=== PATIENT | male | born 1955 | race Caucasian/White ===

== ENCOUNTER → 2017-09-13 | Outpatient (CLI) | payer OTHER ==
[~2017-09-13] MED LIST: ACHD5005 PO; AMLO10TA2 PO; ASP81CT; ASPI-586 PO; ATOR10TA PO; CETI10TA20 PO; CHOL200025 PO; MAGN400C PO; METO-351 PO; OMEP20TA7 PO; OMG1KC; ROSU10TA PO
--- NOTE | 2017-09-13 17:05 | Diagnostic Imaging Report ---
INDICATION: Kidney stone and hematuria with pain in the right flank. TIME OF EXAM: 04:14 p.m. FINDINGS: Bowel gas pattern is somewhat prominent, but no significant distention is seen of the bowel loops. No wall thickening or pneumatosis is identified. No definite free air is identified. No definite radiopaque urinary tract calculi are detected. No calculi along the expected course of the ureters are seen. IMPRESSION: Mildly prominent bowel gas pattern, perhaps owing to ileus. No definite radiopaque urinary tract calculi are identified. Dictated by: Dictated on workstation # [id number]
== END ==
LOC: RAD 15:32
PROVIDERS: ATTEND Nurse Practitioner Family
DX: N20.0 Calculus of kidney (principal)
CPT/HCPCS: 74018

== ENCOUNTER → 2017-09-19 | Outpatient (CLI) | payer OTHER ==
[~2017-09-19] MED LIST changes: +IOHEXOL 350 MG/ML 100 ML (OMNIPAQUE 350) VIAL IV ONE; +NS 250 ML (IVPB) BAG IV ONE
--- NOTE | 2017-09-19 09:18 | Diagnostic Imaging Report ---
PROCEDURE: CT abdomen and pelvis with contrast. TECHNIQUE: Multiple contiguous axial images were obtained through the abdomen and pelvis after administration of intravenous contrast. INDICATION: Right flank pain radiating into the groin. There is no appendicitis or diverticulitis. No abdominal wall defect or hernia. No inflammatory process. No ascites, abscess, hematoma or fluid collection. There is no hydronephrosis and no perienteric or perinephric edema. Some very slight hazy increased density of the fat along the mesenteric root is unchanged when correlated with its visualized portions of the chest CT January 2017. This jacky mesentery is not associated with adenopathy or acute feature is likely incidental. There are gallstones present without features of acute cholecystitis. Liver, spleen, adrenals and pancreas were normal. There is no bile duct dilatation. A small hiatal hernia chronic and there is chronic calcified basilar pleural plaques and an unchanged left basilar pleural parenchymal density in the posterior sulcal left lower lobe stable dating back to 2009 confirming its benignity. IMPRESSION: No appendicitis, diverticulitis or urinary tract obstruction. No inflammatory process or acute finding. Chronic basilar pleural plaques and chronic pleural-parenchymal density in the left lower lobe. Cholelithiasis without features of acute cholecystitis. Chronic incidental jacky mesentery with no adenopathy or acute finding. Dictated by: Dictated on workstation # [id number]
== END ==
LOC: RAD 08:33
PROVIDERS: ATTEND Nurse Practitioner Family
DX: J92.9 Pleural plaque without asbestos (principal); J98.4 Other disorders of lung; K80.20 Calculus of gallbladder without cholecystitis without obstruction
CPT/HCPCS: 74177

== ENCOUNTER 2017-09-26 05:39 | Outpatient (CLI) | payer OTHER ==
[~2017-09-26] VITALS: Ht 180.3 cm; Wt 99.8 kg
[~2017-09-26 05:39] MED LIST changes: -ACHD5005 PO; -AMLO10TA2 PO; -ASPI-586 PO; -ATOR10TA PO; -CETI10TA20 PO; -CHOL200025 PO; -IOHEXOL 350 MG/ML 100 ML (OMNIPAQUE 350) VIAL IV ONE; -MAGN400C PO; -METO-351 PO; -NS 250 ML (IVPB) BAG IV ONE; -OMEP20TA7 PO; -ROSU10TA PO
[2017-09-26] MEDS ORDERED: ATOR10TA PO (12:12)
[2017-09-26] MEDS ORDERED: CHOL200025 PO (12:12)
[2017-09-26] MEDS ORDERED: MAGN400C PO (12:12)
[2017-09-26] MEDS ORDERED: ASPI-586 PO (12:12)
[2017-09-26] MEDS ORDERED: OMEP20TA7 PO (12:12)
[2017-09-26] MEDS ORDERED: CETI10TA20 PO (12:12)
[2017-09-26] MEDS ORDERED: METO-351 PO (12:12)
[2017-09-26] MEDS ORDERED: AMLO10TA2 PO (12:12)
== END 2017-09-26 12:30 ==
LOC: PREOP 05:39
PROVIDERS: ATTEND Surgery
DX: Z01.818 Encounter for other preprocedural examination (principal)

== ENCOUNTER 2017-09-28 06:00 | Day surgery (SDC) | payer OTHER ==
[~2017-09-28] VITALS: Ht 180.3 cm; Wt 99.8 kg
[~2017-09-28 06:00] MED LIST changes: +AMLO10TA2 PO; +ASPI-586 PO; +ATOR10TA PO; +CETI10TA20 PO; +CHOL200025 PO; +MAGN400C PO; +METO-351 PO; +OMEP20TA7 PO
--- OUTSIDE RECORDS SUMMARY | 2017-09-28 06:05 | XMS REPORT | Continuity of Care Document ---
Author Author [facility] Address Unknown Phone Unavailable Allergies Active Description Code Type Severity Reaction Onset Reported/Identified Relationship to Patient Clinical Status Yes NKANo Known Allergies NKA Miscellaneous Allergy Mild N/A 10/01/2008 Medications There is no data. Problems Date Dx Coded Attending Type Code Diagnosis Diagnosed By 11/30/2013 BRITTANY RAMEY, VALERIA V70.0 ROUTINE GENERAL MEDICAL EXAMINATION AT A HEALTH CARE FACILITY 06/03/2014 Ot 793.11 06/03/2014 JENELLE VACA MD Ot 793.11 10/21/2014 Ot 793.11 10/21/2014 JENELLE VACA MD Ot 793.11 05/12/2015 Ot 793.11 05/12/2015 JENELLE VACA MD Ot 793.11 05/12/2015 ANABELLA SHARP MD Ot 793.19 05/12/2015 ANABELLA SHARP MD Ot V15.84 05/30/2015 Ot 786.50 05/30/2015 Ot 518.0 05/30/2015 Ot 518.89 06/03/2015 ARGENIS PANG Ot M54.2 06/03/2015 ARGENIS PANG Ot M54.2 06/09/2015 ARGENIS PANG Ot M54.2 01/19/2016 Ot 793.11 SOLITARY PULMONARY NODULE 01/19/2016 JENELLE VACA MD Ot 793.11 SOLITARY PULMONARY NODULE 01/19/2016 ANABELLA SHARP MD Ot 793.19 OTHER NONSPECIFIC ABNORMAL FINDING OF TRISTIN 01/19/2016 ANABELLA SHARP MD Ot V15.84 PERSONAL HX OF CONTACT W (SUSPECTED) E 01/19/2016 ARGENIS PANG Ot M54.2 CERVICALGIA 02/11/2017 Ot 793.11 SOLITARY PULMONARY NODULE 02/11/2017 JENELLE VACA MD Ot 793.11 SOLITARY PULMONARY NODULE 02/11/2017 ANABELLA SHARP MD Ot 793.19 OTHER NONSPECIFIC ABNORMAL FINDING OF TRISTIN 02/11/2017 ANABELLA SHARP MD Ot V15.84 PERSONAL HX OF CONTACT W (SUSPECTED) E 02/11/2017 ARGENIS PANG Ot M54.2 CERVICALGIA 02/15/2017 Ot 793.11 SOLITARY PULMONARY NODULE 02/15/2017 JENELLE VACA MD Ot 793.11 SOLITARY PULMONARY NODULE 02/15/2017 ANABELLA SHARP MD Ot 793.19 OTHER NONSPECIFIC ABNORMAL FINDING OF TRISTIN 02/15/2017 ANABELLA SHARP MD Ot V15.84 PERSONAL HX OF CONTACT W (SUSPECTED) E 02/15/2017 ARGENIS PANG Ot M54.2 CERVICALGIA 03/28/2017 Ot 793.11 SOLITARY PULMONARY NODULE 03/28/2017 JENELLE VACA MD Ot 793.11 SOLITARY PULMONARY NODULE 03/28/2017 ANABELLA SHARP MD Ot 793.19 OTHER NONSPECIFIC ABNORMAL FINDING OF TRISTIN 03/28/2017 ANABELLA SHARP MD Ot V15.84 PERSONAL HX OF CONTACT W (SUSPECTED) E 03/28/2017 ARGENIS PANG Ot M54.2 CERVICALGIA 03/28/2017 HERBER LAUREN APRN Ot J98.11 ATELECTASIS 03/28/2017 HERBER LAUREN APRN Ot K63.89 OTHER SPECIFIED DISEASES OF INTESTINE 03/28/2017 HERBER LAUREN APRN Ot K80.20 CALCULUS OF GALLBLADDER W/O CHOLECYSTITI 03/30/2017 Ot 793.11 SOLITARY PULMONARY NODULE 03/30/2017 JENELLE VACA MD Ot 793.11 SOLITARY PULMONARY NODULE 03/30/2017 ANABELLA SHARP MD Ot 793.19 OTHER NONSPECIFIC ABNORMAL FINDING OF TRISTIN 03/30/2017 ANABELLA SHARP MD Ot V15.84 PERSONAL HX OF CONTACT W (SUSPECTED) E 03/30/2017 ARGENIS PANG Ot M54.2 CERVICALGIA 03/30/2017 HERBER LAUREN APRN Ot J98.11 ATELECTASIS 03/30/2017 HERBER LAUREN APRN Ot K63.89 OTHER SPECIFIED DISEASES OF INTESTINE 03/30/2017 HERBER LAUREN APRN Ot K80.20 CALCULUS OF GALLBLADDER W/O CHOLECYSTITI 04/04/2017 HERBER LAUREN APRN Ot J98.11 ATELECTASIS 04/04/2017 HERBER LAUREN APRN Ot K63.89 OTHER SPECIFIED DISEASES OF INTESTINE 04/04/2017 HERBER LAUREN APRN Ot K80.20 CALCULUS OF GALLBLADDER W/O CHOLECYSTITI 09/14/2017 HERBER LAUREN APRN Ot N20.0 CALCULUS OF KIDNEY Procedures Code Description [place] [address] PURE TONE HEARING TEST AIR 11/30/2013 45688 UA LONG DIP 11/30/2013 Results Test Result Range Comprehensive metabolic panel - 02/15/17 10:15 Serum or plasma sodium measurement (moles/volume) 140 mmol/L 135-145 Serum or plasma potassium measurement (moles/volume) 4.1 mmol/L 3.6-5.0 Serum or plasma chloride measurement (moles/volume) 107 mmol/L 98-107 Carbon dioxide 25 mmol/L 21-32 Serum or plasma anion gap determination (moles/volume) 8 mmol/L 5-14 Serum or plasma urea nitrogen measurement (mass/volume) 13 mg/dL 7-18 Serum or plasma creatinine measurement (mass/volume) 1.01 mg/dL 0.60-1.30 Serum or plasma urea nitrogen/creatinine mass ratio 13 NRG Serum or plasma creatinine measurement with calculation of estimated glomerular filtration rate > NRG Serum or plasma glucose measurement (mass/volume) 100 mg/dL 70-105 Serum or plasma calcium measurement (mass/volume) 9.0 mg/dL 8.5-10.1 Serum or plasma total bilirubin measurement (mass/volume) 0.8 mg/dL 0.1-1.0 Serum or plasma alkaline phosphatase measurement (enzymatic activity/volume) 48 U/L 40-136 Serum or plasma aspartate aminotransferase measurement (enzymatic activity/ volume) 16 U/L 5-34 Serum or plasma alanine aminotransferase measurement (enzymatic activity/volume ) 16 U/L 0-55 Serum or plasma protein measurement (mass/volume) 6.7 g/dL 6.4-8.2 Serum or plasma albumin measurement (mass/volume) 3.9 g/dL 3.2-4.5 Encounters ACCT No. Visit Date/Time Discharge Status Pt. Type Provider Facility Loc./Unit Complaint [id number] 11/30/2013 09:46:00 11/30/2013 23:59:59 CLS Outpatient BRITTANY RAMEY, VALERIA [id number] 09/19/2017 08:33:00 09/19/2017 23:59:59 CLS Outpatient HERBER LAUREN PATTERN LEASE INSPECTOR [facility] RAD RLQ PAIN,RT FLANK PAIN,RT GROIN PAIN [id number] 09/13/2017 15:32:00 09/13/2017 23:59:59 CLS Outpatient HERBER LAUREN PATTERN LEASE INSPECTOR [facility] RAD KIDNEY STONE [id number] 02/15/2017 09:57:00 02/15/2017 23:59:59 CLS Outpatient HERBER LAUREN PATTERN LEASE INSPECTOR [facility] RAD PULMONARY NODULE [id number] 05/30/2015 08:33:00 05/30/2015 23:59:59 CLS Outpatient ARGENIS PANG SHARE DAIRY FARMER [facility] RAD NECK PAIN [id number] 10/21/2014 12:03:00 10/21/2014 23:59:59 CLS Outpatient ANABELLA SHARP MD [facility] RAD HX OF ASBESTOS EXPOSURE, LUNG CONSOLIDATION [id number] 09/12/2013 07:26:00 09/12/2013 23:59:59 CLS Outpatient JENELLE VACA MD [facility] RAD F/U NODULE [id number] 05/30/2015 08:30:00 Document Registration [id number] 05/30/2015 08:30:00 Document Registration [id number] 07/12/2012 08:27:00 Document Registration [id number] 04/01/2010 08:42:00 Document Registration [id number] 01/14/2010 06:55:00 Document Registration [id number] 02/17/2017 10:38:29 02/17/2017 23:59:59 CLS Outpatient
--- OUTSIDE RECORDS SUMMARY | 2017-09-28 06:05 | XMS REPORT | Clinical Summary ---
Author Author [facility] Organization [facility] Address Unknown Phone Unavailable Care Team Providers Care Consulting Technical Director Name Role Phone Jose Bocanegra MD [address], Academic Coach Unavailable Unavailable Katya Myrick MD PCP Source Comments Some departments are not documenting in the electronic medical record. If you do not see the information that you expected, contact Release of Information in the Health Information Management department at [phone] for further assistance in locating additional records.[facility] Allergies No Known Allergies Current Medications Prescription Sig. Disp. Refills Start End Date Status Date magnesium oxide (MAG-OX) Take 400 mg by mouth Active 400 mg tablet Twice Daily. ERGOCALCIFEROL (VITAMIN D Take 2,000 Units by mouth Active PO) Daily. aspirin EC 81 mg tablet Take 1 Tab by mouth 90 Tab 3 11/24/19 Active daily. 13 rosuvastatin (CRESTOR) 20 Take 1 tablet by mouth 90 tablet 3 02/29/20 Active mg tabletIndications: daily. 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 Alcala - "coronary microcirculation dysfunction; intramyocardial mild systolic compression" L ast Assessment & Plan: Reports breakthrough episodes in the past couple of months even on Norvasc. We will schedule him to followup with Dr. Alcala for further evaluation and treatment. Cardiovascular Studies 09/29/2009 Overview: A.12/09/08 TM: Sub-maximal Williams protocol stress test with no evidence of of exercise-induced arrhythmia. Patient was on Sotalol 120 mg bid. B. 08/27/08 ED: Normal left ventricular size. Systolic function is in the lower limits of normal. Estimated LV EF is 50%. Mild mitral regurgitation. Mild Tricuspid regurgitation. Pulmonary hypertension with estimated PAP of 50 mmHg. C. 09/04/08 Ex Myoview Stress Test: Excellent exercise tolerance, achieving 93% of maximum expected heart rate. Mild reversible ischemia involving the mid to apical anterior wall. Normal left ventricular size with good systolic function, no segmental wall motion abnormality. Calculated EF of 58%. D. 09/11/08 Cardiac Cath: Normal coronary arteries. Left anterior descending artery initially is small in caliber, most likely related to intracardiovascular dehydration. With intracoronary nitroglycerin the caliber of the vessel increases. In the [id number] left anterior descending artery there is 20% lesion. LV EF is 50%. E. 12/03/08 ED: Left atrial enlargement of 5.1 cm. Right atrial enlargement. Normal ventricular systolic function. Borderline enlarged right ventricle, however, it was difficult to assess by conventional echo. PAP of 39 mmHg. LV EF of 65%. F. 12/09/08 TM: Sub-maximal williams protocol stress test with no evidence of exercise-induced arrhythmia. This test was preformed while the patient was no Sotalol 120 mg twice daily. Patient achieved 73% of his predicted heart rate. G. 01/14/10 Thallium: Excellent ex tolerance. Achieved 96% of maximum expected heart rate. Reverse distribution with the stress images better than resting involving the anterior wall, anteroapical segments and true apex. Normal LV size with good systolic function. No segmental wall motion abnormalities. LV EF 53%. GERD (gastroesophageal reflux disease) 09/29/2009 Overview: - 01/03/09 Started on Prontix by Dr. Liu. - 03/13/[address] Dickson, continue Omeprazole 10 mg daily. - 04/2009 s/p EGD. Lung nodule 09/29/2009 Overview: A. 08/30/08 Chest X-ray: Minimal subsegmental atelectasis or scarring in the left lung base. No pneumonia or heart failure noted. B. 11/27/08 PFT: Spirometry was within normal limits. Lung volumes are within normal limits. Diffusion capacity is within normal limits. FEV1 changed by 10 %. FEF 25-75 changed by 26%. Mild response to bronchodilator. C.02/12/09 CT of Chest: Stable round density in the left lung base. D. 06/03/09 CT of Chest: Stable round density in the left lung base when compared to the prior examination from 02/12/09. That exam was also stable back to 09/21/08. Sleep stage dysfunction 09/29/2009 Overview: A. 08/07/09 - Sleep study ([facility]) - snoring and sleep stage disturbance: recommend lifestyle modifications (dietary, weight loss, avoidance of sedatives (alcohol) and sleep hygiene measures are recommended). Atrial fibrillation s/p ablation in September 2009 08/25/2009 Overview: diagnosed with A-fib 11/2008 A. 11/29/08 Holter Monitor: SR with multiple episodes of PAF, rate up to 240 bpm. Multiple episodes of wide complex tachycardia. Minimum heart rate of 58 bpm, maximum heart rate of 142 bpm, average of 83 bpm. B. 12/03/08 Sotalol initiated. C. 01/03/[address] Liu, pt well controlled on Sotalol 120 bid. D. Holter Monitor: SR with frequent PVC's, bigeminy, occasional PVC's. Maximum 118 bpm, minimum 54 bpm. E. 06/18/09 Holter Monitor: SR with occasional PAC and PVC's. Minimum heart rate of 51 bpm, maximum heart rate of 109 bpm, average heart rate of 67 bpm. F. 07/17/09 - met in consultation with Dr. Bocanegra - started on Coumadin, plan for Tikosyn and ablation. G. 08/25/09 - Tikosyn initiation H. 08/25/09 - Cardiac CTA: Upper limits of normal left atrial size with normal pulmonary vein anatomy. No left atrial appendage thrombus is identified. Normal bilateral superior and inferior pulmonary veins as described. Limited CT chest: Mild bilateral pleural plaquing with small areas of calcification. 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 There is associated round atelectasis in the left lung base. I. 10/13/09 - ASIF RFA: Recurrent paroxysmal atrial fibrillation status post pulmonary vein antral isolation.2. Normal sinus node function. 3. Normal atrial conduction at completion of procedure. 4. Normal AV node function. 5. No evidence of accessory pathway. 6. Normal ventricular function. 7. Normal His-Purkinje system function. J. 12/04/09 - Tikosyn tapered and discontinued K. 03/17/10 - Event monitor: The patient was monitored from 04/07/2010 until 04/16/2010 with a total of 5 transmissions, all of which are normal sinus rhythm, no evidence of atrial fibrillation. IMPRESSION: Successful pulmonary venous antral isolation. Excellent rhythm control. L. 04/23/10 - Coumadin discontinued M. 10/08/10 - Cardiac CTA No pulmonary vein stenosis, 1. MILD INCREASE IN SIZE OF THE LEFT ATRIUM WHICH IS NOW MILDLY ENLARGED WITHOUT LEFT ATRIAL APPENDAGE THROMBUS. N. 11/23/2012 - 48 hour holter ordered to assess for any silent arrhythmias Last Assessment & Plan: Atrial fibrillation s/p successful ablation. Mr. Payne continues to have excellent rhythm control. He denies any recurrence of atrial arrhythmias or symptoms of tachypalpitations. He was instructed to restart aspirin 81 mg daily.He will be scheduled to undergo 48 hours of continuous monitoring to assess for any silent arrhythmias. Pulmonary hypertension (HCC) 08/25/2009 Mitral regurgitation 08/25/2009 Last Assessment & Plan: Stable. We will plan to reassess at next visit. Tricuspid regurgitation 08/25/2009 Resolved Problems Problem Noted Date Resolved Date Chest pain 02/23/2010 11/23/2012 Tobacco abuse 09/29/2009 11/23/2012 Social History Tobacco Use Types Packs/Day Years Used Date Never Smoker Alcohol Use Drinks/Week oz/Week Comments No Sex Assigned at Date Recorded Not on file Last Filed Vital Signs Vital Sign Reading Time Taken Blood Pressure 125/79 03/07/2017 8:02 AM SENIOR MATERIALS ANALYST Pulse 70 02/21/2017 9:54 AM SENIOR MATERIALS ANALYST Temperature 37 C (98.6 F) 02/23/2010 7:00 PM SENIOR MATERIALS ANALYST Respiratory Rate - - Oxygen Saturation 96% 11/13/2015 11:14 AM CDT Inhaled Oxygen - - Concentration Weight 100.7 kg (222 lb) 03/07/2017 8:49 AM SENIOR MATERIALS ANALYST Height 180.3 cm (5' 11") 03/07/2017 8:49 AM SENIOR MATERIALS ANALYST Body Mass Index 30.96 03/07/2017 8:49 AM SENIOR MATERIALS ANALYST Plan of Treatment Health Maintenance Due Date Last Done Comments HEPATITIS C SCREENING 1955 PHYSICAL (COMPREHENSIVE) 1962 EXAM PERTUSSIS VACCINE 1966 HIV SCREENING 1970 TETANUS VACCINE 01/08/1972 COLORECTAL CANCER 2005 SCREENING SHINGLES VACCINE 2015 INFLUENZA VACCINE 01/16/2018 Results Not on filefrom Last 3 Months
--- OUTSIDE RECORDS SUMMARY | 2017-09-28 06:05 | XMS REPORT ---
Author Author IRIS UNGER Organization [employer] Address Unknown Phone Unavailable Care Team Providers Care Compensation Coordinator Name Role Phone IRIS UNGER CP Unavailable Allergies No Known Allergies Problems Problem Type Condition Code Onset Dates Condition Status Assessment Encounter for immunization Z23 Active Problem Routine general medical examination at health care facility V70.0 Active Medications No Known Medications Procedures Procedure Coding System Code Date FLUARIX QUAD (3 & UP)-GSK-2014 CPT-4 79591 Feb 06, 2015 SINGLE IMMUNIZATION ADMIN CPT-4 83108 Feb 06, 2015 TDAP (BOOSTRIX) CPT-4 04399 Feb 06, 2015 IMMUNIZATION ADMIN, EACH ADD (please include units) CPT-4 37954 Feb 06, 2015 Results No Known Results Immunizations Vaccine Administration Date FLUARIX QUAD (3 & UP)-GSK-2014Feb 06, 2015 TDAP (BOOSTRIX) Feb 06, 2015 Summary Purpose [employer] Submission
--- OUTSIDE RECORDS SUMMARY | 2017-09-28 06:05 | XMS REPORT ---
Author Author BE PANTOJA [facility] [employer] Address Unknown Phone Unavailable Care Team Providers Care Human Resources Intern Name Role Phone BE PANTOJA CP Unavailable Allergies, Adverse Reactions, Alerts Substance Reaction Event Type N.K.D.A. Info Not Available Non Drug Allergy Problems Problem Type Condition Code Onset Dates Condition Status Problem Essential hypertension I10 Active Problem Gastroesophageal reflux disease, esophagitis presence not specified K21.9 Active Problem Hypercholesterolemia E78.0 Active Assessment Essential hypertension I10 Active Assessment Gastroesophageal reflux disease, esophagitis presence not specified K21.9 Active Problem Routine general medical examination at health care facility V70.0 Active Assessment Physical exam Z00.00 Active Medications Medication Code System Code Instructions Start Date End Date Status Dosage amlodipine [facility] [address]-39 10 mg Nov 30, 2013 take 1 tablet (10 mg) by oral route once daily Omeprazole [facility] [address]-90 20 mg Nov 30, 2013 take 1 capsule ( 20 mg) by oral route once daily before a meal Aspirin Low Dose [facility] [address]-48 81 mg Nov 30, 2013 take 1 tablet (81 mg) by oral route once daily atorvastatin NDC 0 10 mg Nov 30, 2013 take 1 tablet (10 mg) by oral route once daily at bedtime Procedures Procedure Coding System Code Date Office Visit, Est Pt., Level 4 CPT-4 29996 November 03, 2015 URINALYSIS, AUTO, W/O SCOPE CPT-4 52588 November 03, 2015 Vital Signs Date/Time: November 03, 2015 Cardiac Monitoring Heart Rate 80 bpm Weight 225 lbs Height 70 in Blood Pressure Diastolic 80 mmHg Blood Pressure Systolic 130 mmHg Results No Known Results Summary Purpose [employer] Submission
[2017-09-28] MEDS ORDERED: metroNIDAZOLE 500MG/100ML IVPB 100 ML IV ONE (06:15)
[2017-09-28] MEDS ORDERED: ceFAZolin 2 GM IV Premixed 50 ML IV ONE (06:15)
[2017-09-28 06:20] VITALS: BP 127/86
[2017-09-28] MEDS ORDERED: ATRACURIUM 50 MG/5 ML (TRACRIUM) IV ONE ×2 (06:45→06:48)
[2017-09-28] MEDS ORDERED: LACTATED RINGERS 1,000 ML IV ONE (06:47)
[2017-09-28] MEDS ORDERED: LIDOCAINE PF 2% 5 ML (XYLOCAINE) VIAL ONE ×2 (06:47→06:52)
[2017-09-28] MEDS ORDERED: HURRICAINE EXT TUBE (BENZOCAINE) ONE (06:47)
[2017-09-28] MEDS ORDERED: proPOfol 200 MG/20 ML (DIPRIVAN) VIAL IV ONE (06:47)
[2017-09-28] MEDS ORDERED: fentaNYL INJECTION 100 MCG/2 ML AMP ONE (06:47)
[2017-09-28] MEDS ORDERED: DEXAMETHASONE 10 MG/ML (DECADRON) 1 ML VIAL ONE ×2 (06:47)
[2017-09-28] MEDS ORDERED: SEVOFLURANE (ULTANE) 15 ML INHAL SOLN ONE ×7 (06:47→09:30)
[2017-09-28] MEDS ORDERED: MIDAZOLAM 2 MG/2 ML (VERSED) VIAL ONE (06:48)
[2017-09-28] MEDS: LACTATED RINGERS 1,000 ML IV PRN ×2 (06:50→09:00)
[2017-09-28] MEDS ORDERED: BUP/EPI 0.5% 1:200,000 (SENSORCAINE) 30 ML VIAL ONE (07:17)
--- NOTE | 2017-09-28 07:43 | Progress Note-Pre Operative ---
Pre-Operative Progress Note H&P Reviewed The H&P was reviewed, patient examined and no changes noted. Date Seen by Provider: Sep 19, 2017 Time Seen by Provider: 11:00 Date H&P Reviewed: Sep 28, 2017 Time H&P Reviewed: 07:42 Pre-Operative Diagnosis: Gallstones BURT ZAYAS MD Sep 28, 2017 7:43 am
[2017-09-28] MEDS ORDERED: ROSU10TA PO (08:25)
--- NOTE | 2017-09-28 09:39 | Operative Report ---
Operative Report Date of Procedure/Surgery Sep 28, 2017 Surgeon (s) BURT ZAYAS MD [employer] Engineer (s): N/A Post-Operative Diagnosis Same Procedure Performed Robotic-assisted cholecystectomy Description of Procedure Anesthesia Type: General Estimated blood loss (mL): Minimal Specimen(s) collected/removed Gallbladder with stones Description of the Procedure Indication for the procedure: This gentleman was found to have multiple gallstones during the evaluation for substernal pain. He was offered cholecystectomy using minimally invasive technique with robotic assistance. Informed consent was obtained after reviewing the operative details and complications of wound infection, bile leak and cardiorespiratory dysfunction. Description of procedure: He was placed supine on the operative table and general anesthesia induced. Ancef and 500 mg of Flagyl were administered intravenously as prophylaxis against wound infection. Sequential compression devices were placed around his legs, to minimize the risk of venous thrombosis. Abdomen was prepared and draped in the usual sterile manner. Pneumoperitoneum was established using a Veress needle introduced over the supraumbilical region. Intra-abdominal pressure was maintained at 15 mmHg, using carbon dioxide and a 12 mm trocar was placed and anatomy visualized using the high-definition, 3-dimensional laparoscope associated with da Yudith system. Gallbladder was thick and obscured by adhesions involving the omentum and the pylorus of the stomach. In addition, flimsy adhesions were found holding the inferior edge of the liver up to the anterior abdominal wall. Under direct view , I placed an 8 mm trocar over each side of the abdomen, followed by a 5 mm trocar over the left subcostal region. The patient was then turned into reverse Trendelenburg position with the right side tilted up. The robotic system was then docked in place. Omental adhesions were taken down using the hook cautery without any iatrogenic injury to the pylorus. The fundus of the gallbladder was then retracted cephalad and thickened tissue around the neck of the gallbladder incised using the hook cautery, delineating the cystic duct and artery. Both were divided between locking clips. Cholecystectomy was then completed using hook cautery. Gallbladder was then placed in an Endo Catch bag, being removed via the supraumbilical trocar site. The fascia over this incision was closed using #1 Vicryl using the Vicente Renteria device, under laparoscopic view. Skin incisions were closed using 4-0 Vicryl, in a subcuticular fashion. 0.5 percent Marcaine with epinephrine infiltrated along the incisions both preemptively and at the conclusion of the operation. He tolerated the procedure well, was extubated in the operating room and taken to the recovery room in a stable condition. Findings of the Procedure See op report Allergies and Home Medications Allergies Coded Allergies: No Known Drug Allergies (Unverified , 09/26/17) Home Medications Amlodipine Besylate 10 Mg Tablet, 10 MG PO DAILY, (Reported) Aspirin 81 Mg Tablet.dr, 81 MG PO DAILY, (Reported) Cetirizine HCl 10 Mg Tablet, 10 MG PO DAILY, (Reported) Cholecalciferol (Vitamin D3) 2,000 Unit Tablet, 2,000 UNIT PO DAILY, (Reported) Magnesium Oxide 400 Mg Capsule, 400 MG PO BID, (Reported) Metoprolol Succinate 25 Mg Tab.er.24h, 25 MG PO DAILY, (Reported) Omeprazole 20 Mg Tablet.dr, 20 MG PO BID, (Reported) Rosuvastatin Calcium 10 Mg Tablet, 10 MG PO HS, (Reported) Patient Home Medication List Home Medication List Reviewed: Yes BURT ZAYAS MD Sep 28, 2017 9:39 am
[2017-09-28] MEDS ORDERED: ACHD5005 PO (09:40)
--- NOTE | 2017-09-28 09:41 | Discharge Inst-Simple/Standard ---
Discharge Inst-Standard Discharge Medications New, Converted or Re-Newed RX: RX on Chart Patient Instructions/Follow Up Plan of Care/Instructions/FU: Band-Aids off in 48 hours. Incentive spirometry. Follow-up in 3 weeks. Activity as Tolerated: Yes Discharge Diet: No Restrictions BURT ZAYAS MD Sep 28, 2017 9:41 am
[2017-09-28] MEDS ORDERED: morphine INJ 10 MG/ML 1ML (SYR OR VIAL) ONE (09:48)
[2017-09-28] MEDS: morphine INJ 10 MG/ML 1ML (SYR OR VIAL) IVP PRN ×2 (09:50→09:55)
[2017-09-28] MEDS ORDERED: ONDANSETRON 4 MG/2 ML (SDV) Z0FRAN IVP PRN (10:00)
[2017-09-28] MEDS ORDERED: ONDANSETRON 4 MG/2 ML (SDV) Z0FRAN ONE (10:02)
[2017-09-28 10:25] VITALS: BP 116/71
[2017-09-28 10:30] VITALS: BP 116/71
[2017-09-28] MEDS ORDERED: HYDROcodone/APAP 5 MG/325 MG (LORTAB) TAB ONE (10:39)
[2017-09-28] MEDS ORDERED: HYDROcodone/APAP 5 MG/325 MG (LORTAB) TAB PO ONE (10:45)
[2017-09-28 10:55] VITALS: BP 118/72
[2017-09-28 11:25] VITALS: BP 115/69
--- NOTE | 2017-09-28 11:34 | Anesthesia-General Post-Op ---
General Patient Condition Mental Status/LOC: Same as Preop Cardiovascular: Satisfactory Nausea/Vomiting: Absent Respiratory: Satisfactory Pain: Controlled Complications: Absent Post Op Complications Complications None Follow Up Care/Instructions Patient Instructions None needed. Anesthesia/Patient Condition Patient Condition Patient is doing well, no complaints, stable vital signs, no apparent adverse anesthesia problems. No complications reported per nursing. MYESHA STEPHENS CRNA Sep 28, 2017 11:34
== END 2017-09-28 12:55 | disposition home or self-care (01) ==
LOC: SDC 06:00
PROVIDERS: ATTEND Surgery
DX: K80.20 Calculus of gallbladder without cholecystitis without obstruction (principal); Z11.2 Encounter for screening for other bacterial diseases; Z87.891 Personal history of nicotine dependence; E66.9 Obesity, unspecified; Z79.899 Other long term (current) drug therapy; Z68.30 Body mass index [BMI] 30.0-30.9, adult
CPT/HCPCS: 87081; 88304

== ENCOUNTER → 2018-02-16 | Outpatient (CLI) | payer OTHER ==
[~2018-02-16] MED LIST changes: +ACHD5005 PO; -AMLO10TA2 PO; +AMLO10TA6 PO; +ROSU10TA PO
== END ==
LOC: CARD 08:43
PROVIDERS: ATTEND Internal Medicine Cardiovascular Disease
DX: I48.0 Paroxysmal atrial fibrillation (principal); I10 Essential (primary) hypertension; E78.5 Hyperlipidemia, unspecified
CPT/HCPCS: 93306

== ENCOUNTER → 2018-03-02 | Outpatient (CLI) | payer OTHER ==
[~2018-03-02] VITALS: Ht 180.3 cm; Wt 102.5 kg
[~2018-03-02] MED LIST changes: +CATHETER FLUSH 10 ML SYR IV PRN
[2018-03-02 10:09] VITALS: BP 126/86
--- NOTE | 2018-03-02 18:24 | Cardiology Stress Test Report ---
Stress Test Report Type of NM Stress Test: Test Type: NUCLEAR TREADMILL Date of Procedure/Referring: Date of Procedure: Mar 02, 2018 PCP Tiffanie Cao MD Admitting Physician Katya Myrick MD Indications: PAF Baseline Heart Rate: 80 Baseline Blood Pressure: Blood Pressure Systolic: 126 Blood Pressure Diastolic: 86 Baseline EKG: Baseline EKG: sinus rhythm Summary & Conclusion: Summary: The patient was brought to the stress lab after informed consent was taken. Stress test was performed according to the standard neelam protocol. Baseline EKG showed sinus rhythm at 80 BPM. Initial blood pressure was 126/86 mmHg. Maximum heart rate was 152 bpm and blood pressure 211 mmHg. Patient exercised for 9 minutes and 35 seconds, 11.1 mets. 96% of maximum predicted heart rate response. Patient did not have any chest pain, arrhythmias or ST segment changes during the stress test. 10.35 mCi of Myoview were given for rest imaging and 31 mCi of Myoview given for stress imaging. Transient ischemic dilatation score 0.99 , EF 53 percent. Normal wall motion. Mild apical reversible defect. SSS 4, SRS 0, SDS 4. Conclusion: Exercise stress test was negative for ischemia. Normal LV function with no wall motion abnormalities. Apical ischemia - Clinical correlation is recommended. Tiffanie CAO MD Mar 02, 2018 6:24 pm
== END ==
LOC: CARD 08:34
PROVIDERS: ATTEND Internal Medicine Interventional Cardiology
DX: I48.0 Paroxysmal atrial fibrillation (principal); I10 Essential (primary) hypertension; E78.5 Hyperlipidemia, unspecified; R07.89 Other chest pain
CPT/HCPCS: 78452; 93017

== ENCOUNTER → 2019-01-30 | Outpatient (CLI) | payer OTHER ==
[~2019-01-30] MED LIST changes: -AMLO10TA6 PO; +AMLO10TA7 PO; -CATHETER FLUSH 10 ML SYR IV PRN; -ROSU10TA PO; +ROSU10TA22 PO
--- NOTE | 2019-01-30 11:01 | Diagnostic Imaging Report ---
EXAMINATION: CT Chest without contrast. TECHNIQUE: Multiple contiguous axial images were obtained through the chest without the use of intravenous contrast. All CT scans use one or more of the following dose optimizing techniques: automated exposure control, MA and/or KvP adjustment based on a patient size and exam type, or iterative reconstruction. HISTORY: LUNG NODULE FINDINGS: Comparison is 02/15/2017 The lungs are clear without edema or pneumonia. No pleural effusion or pneumothorax. No suspicious nodules. There are bilateral areas of pleural thickening and calcification suggestive of prior asbestos exposure. Mild reticulations in the lung base are similar to previous exam and may represent mild asbestosis. There is rounded atelectasis in the left lower lobe. Heart size is normal. No pericardial effusion. Aorta is normal in caliber. There is no axillary, supraclavicular or mediastinal lymphadenopathy. Limited views of the upper abdomen are unremarkable. There are no suspicious osseus lesions. IMPRESSION: 1. Calcified pleural plaques bilaterally in keeping with prior asbestos exposure. 2. Stable rounded atelectasis in the left lung base. 3. Mild reticulations posteriorly in both lungs suggestive of developing asbestosis, not significantly changed from prior exam. Dictated by: Dictated on workstation # [id number]
== END ==
LOC: RAD 09:47
PROVIDERS: ATTEND Family Medicine
DX: J92.9 Pleural plaque without asbestos (principal); J98.11 Atelectasis; J64 Unspecified pneumoconiosis; R91.1 Solitary pulmonary nodule
CPT/HCPCS: 71250

== ENCOUNTER → 2019-03-22 | Outpatient (CLI) | payer OTHER ==
[2019-04-03 13:28] VITALS: BP 117/86
--- NOTE | 2019-04-03 13:28 | Cardiology Stress Test Report ---
Stress Test Report Date of Procedure/Referring: Date of Procedure: Mar 22, 2019 PCP Tiffanie Cao MD Admitting Physician Katya Myrick MD Indications: Paroxysmal atrial fibrillation Baseline Heart Rate: 76 Baseline Blood Pressure: Blood Pressure Systolic: 117 Blood Pressure Diastolic: 86 Baseline EKG: Baseline EKG: sinus rhythm Summary/Conclusion: Summary: In summary, the patient started exercising with a baseline heart rate, blood pressure and EKG mentioned above Patient was able to exercise for a total of 10 minutes on Williams protocol, 11.7 METs Maximum heart rate 160 BPM which is 102 percent of maximum predicted heart rate response. Maximum blood pressure 220/77 Stress EKG negative Recovery EKG normal Conclusion: 1. Excellent exercise tolerance. 2. Hypertensive response to exercise. 3. PVCs noted during exercise. 4. Exercise stress test was negative for ischemia. Tiffanie CAO MD Apr 03, 2019 13:28 POS
== END ==
LOC: CARD 09:36
PROVIDERS: ATTEND Internal Medicine Interventional Cardiology
DX: I48.0 Paroxysmal atrial fibrillation (principal); I10 Essential (primary) hypertension; I47.1 Supraventricular tachycardia
CPT/HCPCS: 93017

== ENCOUNTER → 2019-03-30 | Outpatient (CLI) | payer OTHER ==
[~2019-03-30] MED LIST changes: +RT-ALBUTEROL SULF 2.5 MG/3 ML PRE-MIX VIAL INH ONE
== END ==
LOC: RT 09:22
PROVIDERS: ATTEND Internal Medicine Critical Care Medicine
DX: R05 Cough (principal)
CPT/HCPCS: 94060; 94726; 94729

== ENCOUNTER 2021-03-22 10:04 | Emergency (ER) | payer MEDICARE, OTHER ==
[~2021-03-22] VITALS: Ht 180 cm; Wt 104.3 kg
[~2021-03-22 10:04] MED LIST changes: +AMLO-251 PO; -AMLO10TA7 PO; -CETI10TA20 PO; +CETI10TA49 PO; -RT-ALBUTEROL SULF 2.5 MG/3 ML PRE-MIX VIAL INH ONE
--- NOTE | 2021-03-22 10:54 | Diagnostic Imaging Report ---
INDICATION: Pain. FINDINGS: There is a focal irregularity of the left ischium. There is also lucency along the medial aspect of the acetabulum. This is suspect for fracture although the acuity is uncertain. There are mild degenerative changes in the left hip. Soft tissues are unremarkable. IMPRESSION: Findings concerning for fracture through the left ischium and medial left acetabulum. Recommend clinical correlation and if warranted follow up with CT pelvis. Mild degenerative changes in the left hip. Dictated by: Dictated on workstation # [id number]
--- NOTE | 2021-03-22 10:55 | Diagnostic Imaging Report ---
INDICATION: Pain. 3 views of the left hand were obtained FINDINGS: The alignment is normal. There are mild degenerative changes. Degenerative changes are particularly severe at the base of 1st metacarpal. There is no acute fracture or dislocation. IMPRESSION: Degenerative changes as described particularly at the base of 1st metacarpal and the DIP joints. Recommend clinical correlation. Dictated by: Dictated on workstation # [id number]
[2021-03-22 11:56] LABS: BASOPHILS # (AUTO) 0.1 10^3/uL (0.0-0.1); BASOPHILS % (AUTO) 0 % (0-10); EOSINOPHILS % (AUTO) 0 % (0-10); HEMATOCRIT 47 % (40-54); HEMOGLOBIN 15.7 g/dL (13.3-17.7); LYMPHOCYTES # (AUTO) 1.6 10^3/uL (1.0-4.0); LYMPHOCYTES % (AUTO) 9 % (12-44); MEAN CORPUSCULAR HEMOGLOBIN 31 pg (25-34); MEAN CORPUSCULAR HGB CONC 34 g/dL (32-36); MEAN CORPUSCULAR VOLUME 92 fL (80-99); MEAN PLATELET VOLUME 9.3 fL (9.0-12.2); MONOCYTES # (AUTO) 1.5 10^3/uL (0.0-1.0); MONOCYTES % (AUTO) 8 % (0-12); NEUTROPHILS # (AUTO) 14.9 10^3/uL (1.8-7.8); NEUTROPHILS % (AUTO) 82 % (42-75); PLATELET COUNT 259 10^3/uL (130-400); WHITE BLOOD COUNT 18.2 10^3/uL (4.3-11.0)
[2021-03-22] MEDS ORDERED: fentaNYL INJ 100 MCG/2 ML AMP ONE (11:58)
[2021-03-22] MEDS ORDERED: fentaNYL INJ 100 MCG/2 ML AMP IVP ONE ×2 (12:00→15:30)
[2021-03-22 12:06] LABS: ALBUMIN 3.8 GM/DL (3.2-4.5)
[2021-03-22 12:07] LABS: POTASSIUM 4.3 MMOL/L (3.6-5.0)
[2021-03-22 12:08] LABS: CALCIUM 9.2 MG/DL (8.5-10.1)
[2021-03-22 12:09] LABS: TOTAL PROTEIN 6.4 GM/DL (6.4-8.2)
[2021-03-22 12:11] LABS: BILIRUBIN,TOTAL 0.8 MG/DL (0.1-1.0)
[2021-03-22 12:13] LABS: CREATININE SERUM 1.06 MG/DL (0.60-1.30)
[2021-03-22 12:27] LABS: BAND NEUTROPHILS 1 %; LYMPHOCYTES % (MANUAL) 11 %; MONOCYTES % (MANUAL) 7 %; NEUTROPHILS % (MANUAL) 81 %; RBC MORPH NORMAL
[2021-03-22] MEDS ORDERED: morphine INJ 10 MG/ML 1ML (SYR OR VIAL) IVP STA (13:12)
--- NOTE | 2021-03-22 13:12 | ED Fall/Injury ---
General Chief Complaint: Trauma-Non Activation Stated Complaint: FALL Nursing Triage Note: Pt to ED via [facility] with c/o left hip pain s/p fall from ladder. Pt was putting [place] lights up when the ladder slid causing him/ladder to slide down to the ground. Pt denies LOC, denies head/neck pain. Pt also reports pain to left hand and pain to left shoulder, +ROM of left arm. Source: patient Exam Limitations: no limitations History of Present Illness Date Seen by Provider: Mar 22, 2021 Time Seen by Provider: 10:13 Initial Comments This 66-year-old gentleman presents to the emergency room with injuries related to a fall off a ladder. The ladder slid out from beneath him and he grabbed on to the gutter. In the process he fell onto his left side with his left arm outstretched over his head. He denies striking his head or neck or experiencing any head or neck pain. There was no loss of consciousness. He denies any back pain. He has some minor pain in his left shoulder but retains range of motion with minimal pain. He has a small abrasion on his left elbow. There is some pain and swelling in the distal aspect of the left metacarpals. His most significant pain is in the area of the left hip. He was unable to get up or bear weight and laid on the ground for about 30 minutes before he was found by a neighbor. He retains sensation and motor control of the distal left lower extremity. Pedal pulses intact. He does have pain with rotation of the hip and palpation of the left hip. He denies use of any blood thinning medications aside from baby aspirin. He has history of atrial fibrillation status post ablation without any current anticoagulation. Patient states his fall and in jury was purely mechanical. There was no prodrome of lightheadedness, dizziness, shortness of breath, chest pain, etc. Location Injury Occurred: home Allergies and Home Medications Allergies Coded Allergies: morphine (Verified Adverse Reaction, Intermediate, Nausea, chest heaviness, abdominal burning, 03/22/21) Patient Home Medication List Home Medication List Reviewed: Yes Amlodipine Besylate (Amlodipine Besylate) 10 Mg Tablet, 10 MG PO DAILY, (Reported) Entered as Reported by: IVELISSE GAYTAN on 09/26/17 1212 Aspirin (Aspir 81) 81 Mg Tablet., 81 MG PO DAILY, (Reported) Entered as Reported by: IVELISSE GAYTAN on 09/26/17 121 Cetirizine HCl (Zyrtec) 10 Mg Tablet, 10 MG PO DAILY, (Reported) Entered as Reported by: IVELISSE GAYTAN on 09/26/17 121 Cholecalciferol (Vitamin D3) (Vitamin D3) 2,000 Unit Tablet, 2,000 UNIT PO DAILY, (Reported) Entered as Reported by: IVELISSE GAYTAN on 09/26/17 121 Hydrocodone Bit/Acetaminophen (Lortab 5 Mg Tablet) 1 Tab Tab, 1-2 TAB PO 4-6HR PRN for PAIN Prescribed by: BURT ZAYAS on 09/28/17 0940 Magnesium Oxide (Magnesium) 400 Mg Capsule, 400 MG PO BID, (Reported) Entered as Reported by: IVELISSE GAYTAN on 09/26/17 121 Metoprolol Succinate (Toprol Xl) 25 Mg Tab.er.24h, 25 MG PO DAILY, (Reported) Entered as Reported by: IVELISSE GAYTAN on 09/26/17 121 Omeprazole (Omeprazole) 20 Mg Tablet.dr, 20 MG PO BID, (Reported) Entered as Reported by: IVELISSE GAYTAN on 09/26/17 121 Rosuvastatin Calcium (Crestor) 10 Mg Tablet, 10 MG PO HS, (Reported) Entered as Reported by: JEAN MARIE COOMBS on 09/28/17 0825 Review of Systems Review of Systems Constitutional: no symptoms reported Eyes: No Symptoms Reported Ears, Nose, Mouth, Throat: no symptoms reported Respiratory: no symptoms reported Cardiovascular: no symptoms reported Gastrointestinal: no symptoms reported Genitourinary: no symptoms reported Musculoskeletal: see HPI Skin: no symptoms reported Psychiatric/Neurological: No Symptoms Reported Past Napvfef-Pgmour-Prdosn Hx Patient Social History Tobacco Use?: No Substance use?: No Alcohol Use?: No Immunizations Up To Date Tetanus Booster (TDap): Unknown PED Vaccines UTD: No Influenza Vaccine Up-to-Date: Yes; Up-to-Date Seasonal Allergies Seasonal Allergies: Yes Past Medical History Surgery/Hospitalization HX: knee replacement, heart ablation, gall bladder removal Surgeries: Yes Cardiac (Cardiac ablation), Gallbladder, Joint Replacement (Knee replacement) Respiratory: No Cardiac: Yes Atrial Fibrillation (Status post ablation) Neurological: No Reproductive Disorders: No Sexually Transmitted Disease: No HIV/AIDS: No Gastrointestinal: Yes Gastroesophageal Reflux, Gall Bladder Disease Musculoskeletal: No Endocrine: No HEENT: No Loss of Vision: Bilateral Hearing Impairment: Denies Cancer: No Skin Psychosocial: No Integumentary: No Adverse Reaction/Blood Tranf: No (N/A) Physical Exam Vital Signs Vital Signs - First Documented 03/22/21 03/22/21 10:12 16:02 Temp 36.9 Pulse 89 Resp 18 B/P (MAP) 149/98 (115) Pulse Ox 94 O2 Delivery Room Air O2 Flow Rate 2.00 Capillary Refill : Less Than 3 Seconds Height, Weight, BMI Height: 5'11.00" Weight: 226lbs. 0.0oz. 102.012775pr; 32.00 BMI Method: General Appearance: WD/WN, no apparent distress HEENT: PERRL/EOMI, normal ENT inspection Neck: non-tender, normal inspection Cardiovascular: regular rate, rhythm, no edema, no murmur Respiratory: chest non-tender, lungs clear, normal breath sounds, no respiratory distress, no accessory muscle use Gastrointestinal: normal bowel sounds, non tender, soft; No distended Extremities: normal inspection, pelvis stable, other (Tenderness on palpation of the left lateral hip and iliac crest. Some pain with rotation of the left hip. Distal left lower extremity is unremarkable with normal sensation, motor control, and pedal pulse. 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, no motor/sensory deficits, alert, normal mood/affect, oriented x 3 Skin: normal color, warm/dry [place] Coma Score Best Eye Response: (4) Open Spontaneously Best Verbal Response: (5) Oriented Best Motor Response: (6) Obeys Commands [place] Total: 15 Progress/Results/Core Measures Results/Orders Lab Results Laboratory Tests Test 03/22/21 11:48 Range/Units White Blood Count 18.2 H 4.3-11.0 10^3/uL Red Blood Count 5.10 4.30-5.52 10^6/uL Hemoglobin 15.7 13.3-17.7 g/dL Hematocrit 47 40-54 % Mean Corpuscular Volume 92 80-99 fL Mean Corpuscular Hemoglobin 31 25-34 pg Mean Corpuscular Hemoglobin Concent 34 32-36 g/dL Red Cell Distribution Width 12.3 10.0-14.5 % Platelet Count 259 130-400 10^3/uL Mean Platelet Volume 9.3 9.0-12.2 fL Immature Granulocyte % (Auto) 1 % Neutrophils (%) (Auto) 82 H 42-75 % Lymphocytes (%) (Auto) 9 L 12-44 % Monocytes (%) (Auto) 8 0-12 % Eosinophils (%) (Auto) 0 0-10 % Basophils (%) (Auto) 0 0-10 % Neutrophils # (Auto) 14.9 H 1.8-7.8 10^3/uL Lymphocytes # (Auto) 1.6 1.0-4.0 10^3/uL Monocytes # (Auto) 1.5 H 0.0-1.0 10^3/uL Eosinophils # (Auto) 0.0 0.0-0.3 10^3/uL Basophils # (Auto) 0.1 0.0-0.1 10^3/uL Immature Granulocyte # (Auto) 0.2 H 0.0-0.1 10^3/uL Neutrophils % (Manual) 81 % Lymphocytes % (Manual) 11 % Monocytes % (Manual) 7 % Band Neutrophils 1 % Blood Morphology Comment NORMAL Sodium Level 140 135-145 MMOL/L Potassium Level 4.3 3.6-5.0 MMOL/L Chloride Level 104 98-107 MMOL/L Carbon Dioxide Level 26 21-32 MMOL/L Anion Gap 10 5-14 MMOL/L Blood Urea Nitrogen 13 7-18 MG/DL Creatinine 1.06 0.60-1.30 MG/DL Estimat Glomerular Filtration Rate 70 BUN/Creatinine Ratio 12 Glucose Level 113 H 70-105 MG/DL Calcium Level 9.2 8.5-10.1 MG/DL Corrected Calcium 9.4 8.5-10.1 MG/DL Total Bilirubin 0.8 0.1-1.0 MG/DL Aspartate Amino Transf (AST/SGOT) 20 5-34 U/L Alanine Aminotransferase (ALT/SGPT) 26 0-55 U/L Alkaline Phosphatase 49 40-136 U/L Total Protein 6.4 6.4-8.2 GM/DL Albumin 3.8 3.2-4.5 GM/DL My Orders Orders - KATHLEEN TURNER MD Hand, Left, 3 Views (03/22/21 10:21) Pelvis With Left Hip 2-3 Views (03/22/21 10:21) Ed Iv/Invasive Line Start (03/22/21 11:38) Cbc With Automated Diff (03/22/21 11:38) Comprehensive Metabolic Panel (03/22/21 11:38) Ct Pelvis Wo (03/22/21 11:38) Manual Differential (03/22/21 11:48) Fentanyl Inj (Sublimaze Injection) (03/22/21 12:00) Fentanyl Inj (Sublimaze Injection) (03/22/21 11:58) Morphine Injection (Morphine Injection (03/22/21 13:12) Ondansetron Injection (Zofran Injectio (03/22/21 13:45) Ondansetron Injection (Zofran Injectio (03/22/21 13:39) Famotidine Injection (Pepcid Injection) (03/22/21 13:45) Fentanyl Inj (Sublimaze Injection) (03/22/21 15:30) Medications Given in ED Current Medications Medications Dose Ordered Sig/Karmen Route Start Time Stop Time Status Last Admin Dose Admin Famotidine 20 mg ONCE ONCE IVP 03/22/21 13:45 03/22/21 13:46 DC 03/22/21 13:49 20 MG Fentanyl Citrate 50 mcg ONCE ONCE IVP 03/22/21 12:00 03/22/21 12:01 DC 03/22/21 12:02 50 MCG Fentanyl Citrate 75 mcg ONCE ONCE IVP 03/22/21 15:30 03/22/21 15:31 DC 03/22/21 15:53 75 MCG Ondansetron HCl 8 mg ONCE ONCE IVP 03/22/21 13:45 03/22/21 13:46 DC 03/22/21 13:49 8 MG Vital Signs/I&O 03/22/21 03/22/21 03/22/21 10:12 10:34 16:02 Temp 36.9 36.9 Pulse 89 89 105 Resp 18 18 18 B/P (MAP) 149/98 (115) 149/98 (115) 139/89 Pulse Ox 94 94 98 O2 Delivery Room Air Room Air Nasal Cannula O2 Flow Rate 2.00 Blood Pressure Mean: 115 Progress Progress Note #1: Time: 13:19 Progress Note Patient was seen and examined on arrival. He was found to be stable without any suspicion of life threatening injuries. The hip pain was evaluated with x-ray and he was found to have a inferior ramus fracture and suspicion of an acetabular fracture. Further evaluation was obtained with CT scan. Progress Note #2: Time: 15:09 Progress Note Case has been reviewed with Dr. Calderon, traumatologist at [facility]. He accepts the case and requested transfer be arranged. I have contacted the [facility] and made arrangements with Dr. Hawkins in the emergency department. Patient's pain worsened significantly when he was transferred to the CT table. He was given morphine but did not react well to it. He experienced a burning sensation in his upper abdomen, nausea, and a tightness in his chest. This was alleviated with Pepcid and Zofran. He feels fine now. He denies any tenderness in the abdomen on multiple reexaminations. Trauma transfer was discussed with Dr. Leone, trauma surgeon on-call, and he agrees with the transfer. Diagnostic Imaging Diagonstic Imaging: Xray Plain Films/CT/US/NM/MRI: pelvis Comments X-ray of the pelvis and hip viewed by me and report reviewed. See report below: NAME: [facility] REC#: [id number] PT STATUS: REG ER : 1955 PHYSICIAN: KATHLEEN TURNER MD ADMIT DATE: 03/22/21/ER Signed Date of Exam:03/22/21 PELVIS WITH LEFT HIP 2-3 VIEWS INDICATION: Pain. FINDINGS: There is a focal irregularity of the left ischium. There is also lucency along the medial aspect of the acetabulum. This is suspect for fracture although the acuity is uncertain. There are mild degenerative changes in the left hip. Soft tissues are unremarkable. IMPRESSION: Findings concerning for fracture through the left ischium and medial left acetabulum. Recommend clinical correlation and if warranted follow up with CT pelvis. Mild degenerative changes in the left hip. Dictated by: Dictated on workstation # [id number] Dict: 03/22/21 1050 Trans: 03/22/21 1058 [id number] Interpreted by: JANNA PRADHAN MD Electronically signed by: JANNA PRADHAN MD 03/22/21 1058 Diagonstic Imaging: CT Plain Films/CT/US/NM/MRI: pelvis Comments CT pelvis viewed by me and report reviewed. See report below: NAME: [facility] REC#: [id number] PT STATUS: REG ER : 1955 PHYSICIAN: KATHLEEN TURNER MD ADMIT DATE: 03/22/21/ER Draft Date of Exam:03/22/21 CT PELVIS WO PROCEDURE: CT pelvis without contrast. TECHNIQUE: Multiple contiguous axial images were obtained through the pelvis without the use of intravenous contrast. Sagittal and coronal reformations were performed. Auto Exposure Controls were utilized during the CT exam to meet ALARA standards for radiation dose reduction. INDICATION: Pain. FINDINGS: There is a comminuted fracture of the lower aspect of the left iliac wing extending into the superior and medial acetabulum. There is also fracture through the anterior acetabulum. There is a comminuted fractures of the left ischium. There is a small intrapelvic hematoma along the left pelvic sidewall. Bladder is normal. There are no other focal soft tissue abnormalities. IMPRESSION: Comminuted fracture left iliac wing acetabulum and left ischium as described. There is a small intrapelvic hematoma without evidence of active extravasation. Dictated on workstation # [id number] Dict: 03/22/21 1250 Trans: 03/22/21 1312 [id number] Interpreted by: JANNA PRADHAN MD Diagonstic Imaging: Xray Plain Films/CT/US/NM/MRI: hand Comments Hand x-ray viewed by me and report reviewed. See report below: Hand x-rays viewed by me and report reviewed. See report below: NAME: [facility] REC#: [id number] PT STATUS: REG ER : 1955 PHYSICIAN: KATHLEEN TURNER MD ADMIT DATE: 03/22/21/ER Signed Date of Exam:03/22/21 HAND, LEFT, 3 VIEWS INDICATION: Pain. 3 views of the left hand were obtained FINDINGS: The alignment is normal. There are mild degenerative changes. Degenerative changes are particularly severe at the base of 1st metacarpal. There is no acute fracture or dislocation. IMPRESSION: Degenerative changes as described particularly at the base of 1st metacarpal and the DIP joints. Recommend clinical correlation. Dictated by: Dictated on workstation # [id number] Dict: 03/22/21 105 Trans: 03/22/218 [id number] Interpreted by: JANNA PRADHAN MD Electronically signed by: JANNA PRADHAN MD 03/22/21 105 Departure Impression Primary Impression: Closed left acetabular fracture Qualified Codes: S32.402A - Unspecified fracture of left acetabulum, initial encounter for closed fracture Additional Impression: Fall from ladder Qualified Codes: W11.XXXA - Fall on and from ladder, initial encounter Disposition: 02 XFER [facility] HOSP Condition: Stable (ERASED) Transfer Transfer Reason: Exceeds level of care Time Spoke to Accepting Phy: 13:30 Transfer Progress Notes Case was discussed with Dr. Calderon, traumatologist at [facility] in [place]. Transfer was accepted by Dr. Hawkins, ED physician. Departure-Patient Inst. Referrals: ANABELLA SHARP MD (PCP/Family) Primary Care Physician Copy Copies To 1: ANABELLA SHARP MD, JOSHUA T MD Mar 22, 2021 13:12
[2021-03-22] MEDS ORDERED: ONDANSETRON 4 MG/2 ML (SDV) Z0FRAN ONE (13:39)
[2021-03-22] MEDS ORDERED: ONDANSETRON 4 MG/2 ML (SDV) Z0FRAN IVP ONE (13:45)
[2021-03-22] MEDS ORDERED: FAMOTIDINE 20MG/2ML IV (PEPCID) IVP ONE (13:45)
[2021-03-22 16:02] VITALS: BP 139/89
== END 2021-03-22 16:05 | disposition short-term general hospital (02) ==
LOC: EDUNIT# 10:04 → ER 10:13
DX: S32.402A Unspecified fracture of left acetabulum, initial encounter for closed fracture (principal); S32.602A Unspecified fracture of left ischium, initial encounter for closed fracture; R07.89 Other chest pain; R11.0 Nausea; R20.8 Other disturbances of skin sensation; I48.91 Unspecified atrial fibrillation; K21.9 Gastro-esophageal reflux disease without esophagitis; Z79.899 Other long term (current) drug therapy; W11.XXXA Fall on and from ladder, initial encounter
CPT/HCPCS: 36415; 72192; 73130; 80053; 85007; 85027

== ENCOUNTER 2021-03-30 11:45 | Inpatient (IN) | payer MEDICARE, OTHER ==
[~2021-03-30] VITALS: Ht 180 cm; Wt 102.6 kg
[2021-03-30] MEDS ORDERED: CALCIUM CARBONATE 500 MG (TUMS) TAB.CHEW PO PRN (13:15)
[2021-03-30] MEDS ORDERED: LOPERAMIDE 2 MG (IMODIUM) TABLET PO PRN (13:15)
[2021-03-30] MEDS ORDERED: LACTULOSE SYRUP 10GM/15ML (ENULOSE) 30ML UDC PO PRN (13:15)
[2021-03-30] MEDS ORDERED: diphenhydrAMINE 25 MG TAB (BENADRYL) PO PRN (13:15)
[2021-03-30] MEDS ORDERED: ONDANSETRON 4 MG (ZOFRAN) ORAL DISSOLVE TAB PO PRN (13:15)
[2021-03-30] MEDS ORDERED: ALPRAZolam 0.25 MG (XANAX) TAB PO PRN (13:15)
[2021-03-30] MEDS ORDERED: FLEET ENEMA ADULT 1 EA BTL PR PRN (13:15)
[2021-03-30] MEDS ORDERED: MELATONIN 3 MG TABLET PO PRN (13:15)
[2021-03-30] MEDS ORDERED: guaiFENesin/CODEINE (ROBITUSSIN AC) 10ML UDC PO PRN (13:15)
[2021-03-30] MEDS ORDERED: BISACODYL 10 MG SUPP (DULCOLAX) PR PRN (13:15)
[2021-03-30] MEDS ORDERED: DOCUSATE SODIUM 100 MG (COLACE) CAP PO PRN (13:15)
--- NOTE | 2021-03-30 14:48 | Physical Therapy Evaluation ---
PT Evaluation-General Medical Diagnosis Admission Date Mar 30, 2021 at 13:30 Medical Diagnosis: pelvic fx s/p ORIF Onset Date: Mar 22, 2021 Therapy Diagnosis Therapy Diagnosis: impaired mobility, strength, endurance Height/Weight Height (Feet): 5 Height (Inches): 11.00 Weight (Pounds): 226 Weight (Ounces): 0.0 Weight Bear Status Left Lower Extremity: Left Non Weight Bearing Referral Physician: Nelda Ortez DO Reason for Referral: Evaluation/Treatment Medical History Additional Medical History AFib, HTN, cataract, skin cancer, R TKA Current History Fall off ladder 03/22/21, L acetabular fx, L iliac wing fx. s/p ORIF 03/24/21 Reviewed History: Yes Social History Home: Single Level Current Living Status: Spouse Entry Into Home: Stairs Without Railing PT Steps Into Home: 2 Patient also has a small ramp to enter Prior Prior Level of Function SCALE: Activities may be completed with or without assistive devices. 1-Ztkgklmkby-rfnwavk completes the activity by him/herself with no assistance from a helper. 5-Set-up or Clean-up Assistance-helper sets up or cleans up; patient completes activity. Lajas assists only prior to or following the activity. 4-Supervision or Touching Assistance-helper provides verbal cues and/or touching/steadying and/or contact guard assistance as patient completes activity. Assistance may be provided throughout the activity or intermittently. 3-Partial/Moderate Assistance-helper does LESS THAN HALF the effort. Lajas lifts, holds or supports trunk or limbs, but provides less than half the effort. 2-Substantial/Maximal Assistance-helper does MORE THAN HALF the effort. Lajas lifts or holds trunk or limbs and provides more than half the effort. 4-Drrobvzps-lpvztj does ALL the effort. Patient does none of the effort to complete the activity. Or, the assistance of 2 or more helpers is required for the patient to complete the activity. If activity was not attempted, code reason: 7-Patient Refused. 9-Not Applicable-not attempted and the patient did not perform the activity before the current illness, exacerbation or injury. 10-Not Attempted due to Environmental Limitations-(lack of equipment, weather restraints, etc.). 88-Not Attempted due to Medical Conditions or Safety Concerns. Bed Mobility: 6 Transfers (B,C,W/C): 6 Gait: 6 Stairs: 6 Indoor Mobility (Ambulation): Independent Stairs: Independent PT Evaluation-Current Subjective Patient in recliner pre tx, agrees to PT, has 4/10 pain in left hip. Will be co-treating with OT for part of tx due to poor patient mobility, strength, endurance, severe pain with activity, coordinate UE and LE with activity, safety and reduce risk of falls. Pt/Family Goals to be independent at home Objective Patient Orientation: Person, Place, Situation ROM/Strength ROM Lower Extremities WNL on RLE, LLE not tested Strength Lower Extremities RLE (hip flexion 3+/5, knee flexion 4/5, knee extension 4/5, dorsiflexion 4/5), LLE not tested Sensory Hearing: Functional Sensation Right Lower Extremit: Intact Sensation Left Lower Extremity: Intact Transfers Roll Left & Right (QC): 3 Sit to Lying (QC): 3 Lying to Sitting/Side of Bed(Q: 3 Sit to Stand (QC): 4 Chair/Odf-bj-Bjffn Xfer(QC): 4 Toilet Transfer (QC): 4 Car Transfer (QC): 3 Patient performs rolling with min assist, supine to sit with mod assist, sit to supine with min assist, sit <-> stand CGA, transfers CGA, car transfer min assist. Patient needs frequent cues for positioning and safety. Gait Does the Patient Walk?: Yes Mode of Locomotion: Walk Anticipated Mode of Locomotion: Walk Walk 10 feet (QC): 88 Walk 50 ft with 2 Turns(QC): 88 Walk 150 ft (QC): 88 Walking 10ft/uneven surface-QC: 88 Distance: 3'x3 Gait Assistive Device: Parallel Bars Comments/Gait Description Patient can ambulate 3' in the parallel bars with CGA, cues for positioning, patient can barely get his left foot off the floor to take a small step Wheelchair Training Does the Pt Use a Wheelchair?: Yes Distance: 150' Wheel 50 ft with 2 turns (QC): 4 Wheel 150 ft (QC): 4 Type of Wheelchair: Manual SBA Stairs 1 Step (curb) (QC): 88 4 Steps (QC): 88 12 Steps (QC): 88 Balance Sitting Static: Normal Sitting Dynamic: Normal Standing Static: Fair Standing Dynamic: Fair Picking up an Object (QC): 4 Treatment Standing activity performing UE exercise to work on balance, LLE LAQ x20, standing in parallel bars trying to lift left leg, ankle pumps x20 Assessment/Needs Patient in recliner post tx with nurse call, phone, tray, all needs met. Patient has impaired mobility, strength, endurance. He does a fair job of keeping weight off his left leg, needs frequent cues for positioning, and frequent rest breaks. Rehab Potential: Fair PT Short Term Goals Short Term Goals Time Frame: Apr 06, 2021 Roll Left & Right: 4 (SBA) Sit to lyin (CGA) Lying to sitting on side of be: 3 (Peyton) Sit to stand: 4 (SBA) Chair/hsf-dn-aacev transfer: 4 (SBA) Walk 10 feet: 4 PT Alf Goals Alf Goals PT Alf Goals Time Frame: Apr 20, 2021 Roll Left & Right (QC): 5 Sit to Lying (QC): 4 Lying-Sitting on Side/Bed(QC): 4 Sit to Stand (QC): 4 Chair/Kgl-vi-Msfgy Xfer(QC): 4 Toilet Transfer (QC): 4 Car Transfer (QC): 4 Does the Patient Walk: Yes Walk 10 feet (QC): 4 Walk 50ft with 2 Turns (QC): 4 Walk 150 ft (QC): 88 Walking 10ft on Uneven Surface: 4 1 Step (curb) (QC): 4 4 Steps (QC): 88 12 Steps (QC): 88 Picking up an Object (QC): 6 Wheel 50 feet with 2 turns (QC: 6 Wheel 150 feet: 6 PT Plan Problem List Problem List: Activity Tolerance, Functional Strength, Safety, Balance, Gait, Transfer, Bed Mobility, ROM Treatment/Plan Treatment Plan: Continue Plan of Care Treatment Plan: Bed Mobility, Education, Functional Activity Nena, Functional Strength, Gait, Safety, Therapeutic Exercise, Transfers Treatment Duration: Apr 20, 2021 Frequency: At least 5 of 7 days/Wk (IRF) Estimated Hrs Per Day: 1.5 hours per day Patient and/or Family Agrees t: Yes Safety Risks/Education Patient Education: Gait Training, Transfer Techniques, Reviewed Precautions, Correct Positioning, W/C Management, Safety Issues Teaching Recipient: Patient Teaching Methods: Demonstration, Discussion Response to Teaching: Reinforcement Needed Discharge Recommendations Plan Patient will perform bed mobility and transfer training, balance and endurance training, functional strengthening, stair training, gait training, and educat ion, to improve functional mobility and independence at home. Therapy Discharge Recommendati: Home & Family, Post Acute PT Time/GCodes Time In: 5 Time Out: 1450 Total Billed Treatment Time: 75 Total Billed Treatment 1 visit EVM 10' EX 30' FA 35 PT eval from [id number], co-treat from [id number] PT performed bed mobility and transfers, ambulation, WC mobility, standing exercise, LE strengthening, OT performed UE strengthening, UE positioning and safety during activity. SURINDER RIVERA PT Mar 30, 2021 14:48
--- NOTE | 2021-03-30 14:52 | Occupational Therapy Eval ---
OT Evaluation-General/PLF Medical Diagnosis Admission Date Mar 30, 2021 at 13:30 Medical Diagnosis: pelvic fx s/p ORIF Onset Date: Mar 22, 2021 Therapy Diagnosis Therapy Diagnosis: decreased ADL status Height/Weight Height (Feet): 5 Height (Inches): 11.00 Weight (Pounds): 226 Weight (Ounces): 0.0 Referral Physician: Neelima Referral Reason: Evaluation/Treatment Medical History Additional Medical History AFib, HTN, cataract, skin cancer, R TKA Current History Fall off ladder 03/22/21, L acetabular fx, L iliac wing fx. s/p ORIF 03/24/21 Social History Home: Single Level Current Living Status: Spouse (& son) Entry Into Home: Ramp, Stairs Without Railing Steps Into Home: 3 ADL-Prior Level of Function SCALE: Activities may be completed with or without assistive devices. 7-Zmdkteojxk-bhyjefq completes the activity by him/herself with no assistance from a helper. 5-Set-up or Clean-up Assistance-helper sets up or cleans up; patient completes activity. Benton assists only prior to or following the activity. 4-Supervision or Touching Assistance-helper provides verbal cues and/or touching/steadying and/or contact guard assistance as patient completes activity. Assistance may be provided throughout the activity or intermittently. 3-Partial/Moderate Assistance-helper does LESS THAN HALF the effort. Benton li fts, holds or supports trunk or limbs, but provides less than half the effort. 2-Substantial/Maximal Assistance-helper does MORE THAN HALF the effort. Benton lifts or holds trunk or limbs and provides more than half the effort. 2-Oxwpbtfyz-gmoqyj does ALL the effort. Patient does none of the effort to complete the activity. Or, the assistance of 2 or more helpers is required for the patient to complete the activity. If activity was not attempted, code reason: 7-Patient Refused. 9-Not Applicable-not attempted and the patient did not perform the activity before the current illness, exacerbation or injury. 10-Not Attempted due to Environmental Limitations-(lack of equipment, weather restraints, etc.). 88-Not Attempted due to Medical Conditions or Safety Concerns. ADL PLOF Comments Pt reports IND wtih ADLs and functional mobility at PLOF, no AD. He has a tub/sh ower, no SC or GBs. He has 3 steps to enter the house, his son just put in a ramp at the back entrance. Self Care: Independent Functional Cognition: Independent DME/Equipment: Tub/Shower Occupation: Director [employer], [employer] Self: Yes OT Current Status Subjective Pt agreeable to OT evaluation/tx, 4/10 pain in LLE. Pt's adamant that she would like pt to return home by . Mental Status/Objective Patient Orientation: Person, Place, Time, Situation Current Hand Dominance: Right Upper Extremity ROM WFL, BUE shoulder flexion to approx 150 degrees Upper Extremity Coordination WFL Upper Extremity Sensation WFL Upper Extremity Strength grossly 4-/5 ADL-Treatment Eating (QC): 6 (Per pt report) Oral Hygiene (QC): 7 Shower/Bathe Self (QC): 7 Upper Body Dressing (QC): 7 Lower Body Dressing (QC): 7 On/Off Footwear (QC): 7 Toileting Hygiene (QC): 7 Other Treatments OT evaluation complete. OT/PT cotreat due to skill of 2 clinicians required which a homemaking rehabilitation consultant could not perform in order to coordinate UE/LEs, decrease fall risk, and due to pt's limitations in strength, mobility, NWB status LLE, and endurance. OT focused on UE placement, cues for sequencing and safety, ADLs, PT focused on LE placement, gross overall movement and mobility/transfers. Pt completed functional mobility and transfers, using FWW, in/out of car, bed mobility, and w/c mobility. Pt's arrived. OT educated pt's on DME anthony mmendations for DC including a tub transfer bench and hip kit. Pt's indicates she is not interested in a hip kit as she can assist him with dressing and ADLs at home. OT informed pt that pt will be educated on equipment while in hospital for LE dressing as needed. Pt in therapy gym, stood in parallel bars and performed functional mobility. He had difficulty advancing LLE. Pt then stood, removing clothespins that were attached to his clothes, reaching behind his back and towards his thighs. This was performed in order to increase independence with ADLs. Pt then stood and completed ring activity, x1 set BUEs, crossing midline, cues to maintain NWB LLE. Pt propelled w/c back to his room, transferring to recliner. Post tx, pt in recliner, call light in reach and all needs met. Please refer to PT evaluation for QC scores associated with mobility/transfers. Education OT Patient Education: Correct positioning, Energy conservation, Exercise program, Modified ADL techniques, Progress toward Goal/Update tx plan, Purpose of tx/functional activities, Reviewed precautions, Rehab process, Safety issues, Transfer techniques Teaching Recipient: Patient Teaching Methods: Discussion Response to Teaching: Verbalize Understanding OT Short Term Goals Short Term Goals Time Frame: Apr 10, 2021 Shower/bathe self: 4 Lower body dressin Putting on/taking off footwear: 4 OT Fdc Goals Fdc Goals Time Frame: Apr 17, 2021 Eating (QC): 6 Oral Hygiene (QC): 6 Toileting Hygiene (QC): 6 Shower/Bathe Self (QC): 5 Upper Body Dressing (QC): 5 Lower Body Dressing (QC): 5 On/Off Footwear (QC): 5 Additional Goals: 1-Demonstrate ADL Tasks, 2-Verbalize Understanding, 3- ImproveStrength/Nena 1=Demonstrate adherence to instructed precautions during ADL tasks. 2=Patient will verbalize/demonstrate understanding of assistive devices/modifications for ADL. 3=Patient will improve strength/tolerance for activity to enable patient to perform ADL's. OT Education/Plan Problem List/Assessment Assessment: Decreased Activ Tolerance, Decreased UE Strength, Impaired Funct Balance, Impaired I ADL's, Impaired Self-Care Skills Discharge Recommendations Plan/Recommendations: Continue POC Treatment Plan/Plan of Care Patient would benefit from OT for education, treatment and training to promote independence in ADL's, mobility, safety and/or upper extremity function for ADL's. Plan of Care: ADL Retraining, Functional Mobility, Group Exercise/Act as Ind, UE Funct Exercise/Act Treatment Duration: Apr 17, 2021 Frequency: At least 5 of 7 days/Wk (IRF) Estimated Hrs Per Day: 1.5 hours per day Rehab Potential: Fair Time/GCodes Start Time: 13:25 Stop Time: 14:50 Total Time Billed (hr/min): 75 Billed Treatment Time 0900-5283 OT tx (10'), [id number] PT eval (not billed), [id number] OT/PT cotreat (65') 1, EVM (10'), FA 4 (65') GUILLAUME ALMEIDA OT Mar 30, 2021 14:52
[2021-03-30] MEDS ORDERED: DUTA0.5C36 PO (15:48)
[2021-03-30] MEDS ORDERED: APIX5TAB PO (15:48)
[2021-03-30] MEDS ORDERED: ACET-168 PO (15:48)
--- NOTE | 2021-03-30 15:48 | ST Cognitive Linguistic Eval ---
Speech Evaluation-General Medical Diagnosis pelvic fx s/p ORIF Onset Date: Mar 22, 2021 Therapy Diagnosis Therapy Diagnosis: Cognitive-communication Referral Referring Physician: Dr. Ortez Medical History Reviewed History: Yes Social History Current Living Status: Spouse Speech PLF-Current Status Prior Level of Function Patient is currently fully employed with the [employer]. He was independent with all daily needs prior to the accident. Subjective Patient was pleasant and cooperative with the cognitive assessment. His was present during the session. Language Eval: Auditory Comprehends Simple Yes/No Ques: Functional Indent/Objects Multiple Burr: Functional Ident/Pics in Multiple Burr: Functional Follows 1-Step Commands: Functional Follows Complex Directions: Functional Follows General Conversations: Functional Language Eval: Verbal Language Completes Spontaneous Greeting: Functional Produces Auto, Serial Info: Functional Imitates Simple Words/Phrases: Functional Word Finding: Functional Requests Basic Needs: Functional States Basic Personal Info: Functional Expresses Complex Ideas: Functional Objective Cognitive Domain Attention: WNL Memory: WNL Problem Solving: Functional Executive Functions: WNL Visuospatial Skills: WNL Composite Severity Rating: WNL Clock Drawing Severity Rating: WNL Objective Formal/Standardized Tests [facility] Mental Status ([facility]) Results 30/30, within normal range of function Oral Motor/Speech Production Within Normal Limits Impression Patient is a very pleasant 66 y/o male who was admitted to the ARU due to a fall from a ladder with fractures. The patient was transferred to the ARU from [facility] in [place]. The patient was given the SLUMS with a score of 30/30 obtained. Based on his score, no further ST services are indicated at this time. Speech Patient Assess Expression of Ideas/Wants: Expression (4) Understanding Verbal Content: Understands (4) Brief Interview-Mental Status: Yes Repetition of Three Words: Three (3) Temporal Orientation: Year: Correct (3) Temporal Orientation: Month: Accurate within 5 days(2) Temporal Orientation: Day: Correct (1) Recall : Wear to say "Sock": Yes, no cue required (2) Recall : Color: Yes, no cue required (2) Recall : Bed: Yes, no cue required (2) Memory/Recall Ability: Current season, Location of own room, That he or she is in a hsp/hsp unit Speech-Plan Patient/Family Goals Patient/Family Goals: The patient plans on returning to his home where he lives with his . Treatment Plan Speech Therapy Treatment Plan: Discontinue ST Treatment Duration: Mar 30, 2021 Frequency: 1 time per week Estimated Hrs Per Day: .5 hour per day Rehab Potential: Fair Barriers to Learning: Patient's physical status post fall with fractures Pt/Family Agrees to Plan: Yes Safety Risks/Education Teaching Recipient: Patient, Significant Other Teaching Methods: Discussion Response to Teaching: Verbalize Understanding Education Topics Provided: Safety within his room, communication of wants/needs Time Speech Therapy Time In: 15:00 Speech Therapy Time Out: 15:30 Total Billed Time: 30 Billed Treatment Time 1, MARIBEL ANGEL [address] ST Mar 30, 2021 15:48
[2021-03-30] MEDS ORDERED: HYDROcodone/APAP 5 MG/325 MG (LORTAB) TAB PO PRN (16:30)
[2021-03-30] MEDS ORDERED: ENOXAPARIN 40 MG/0.4 ML (LOVENOX) SYR SC SCH (16:30)
[2021-03-30 16:40] VITALS: BP 131/63
[2021-03-30] MEDS ORDERED: AZITHROMYCIN INJECTION 500 MG in NS (IVPB) 250 ML IV ONE (16:45)
--- NOTE | 2021-03-30 17:34 | Diagnostic Imaging Report ---
INDICATION: Fever. COMPARISON: August 30, 2008, and CT dated January 27, 2021. TECHNIQUE: Two radiographs of the chest dated March 30, 2021. FINDINGS: The cardiac silhouette is within normal limits in size. No significant pulmonary vascular congestion. Chronic elevation of the left hemidiaphragm. Low lung volumes, though the lungs appear clear. No significant pleural effusion. No pneumothorax. Scattered osseous degenerative changes without acute osseous abnormality. IMPRESSION: Similar-appearing examination without acute cardiopulmonary abnormality. Dictated by: Dictated on workstation # [id number]
[2021-03-30 17:48] LABS: BASOPHILS # (AUTO) 0.1 10^3/uL (0.0-0.1); BASOPHILS % (AUTO) 0 % (0-10); EOSINOPHILS # (AUTO) 0.1 10^3/uL (0.0-0.3); EOSINOPHILS % (AUTO) 1 % (0-10); HEMATOCRIT 31 % (40-54); HEMOGLOBIN 10.5 g/dL (13.3-17.7); LYMPHOCYTES # (AUTO) 1.7 10^3/uL (1.0-4.0); LYMPHOCYTES % (AUTO) 9 % (12-44); MEAN CORPUSCULAR HEMOGLOBIN 30 pg (25-34); MEAN CORPUSCULAR HGB CONC 34 g/dL (32-36); MEAN CORPUSCULAR VOLUME 88 fL (80-99); MEAN PLATELET VOLUME 9.1 fL (9.0-12.2); MONOCYTES # (AUTO) 1.7 10^3/uL (0.0-1.0); MONOCYTES % (AUTO) 9 % (0-12); NEUTROPHILS # (AUTO) 14.8 10^3/uL (1.8-7.8); NEUTROPHILS % (AUTO) 77 % (42-75); PLATELET COUNT 398 10^3/uL (130-400); WHITE BLOOD COUNT 19.1 10^3/uL (4.3-11.0)
--- NOTE | 2021-03-30 18:11 | PM&R Post Admission Assessment ---
PM&R HP Date of Visit: Mar 30, 2021 Time of Visit: 19:00 History of Present Illness Chief complaint: Debility overall multiple trauma fractures with repair " HPI: This is a 66[address] Myrick who fell from a ladder coming coming from [facility] to inpatient rehab due to b/l acetabular fracture and an iliac wing fracture. He is post op day #5. He had an acute pulmonary embolism and abdominal pain issues but everything seems to be stabilizing. Elevated liver enzymes is from fatty liver since viral hepatitis panel is negative. Previously he was independent with no assistive devices and he will be going home with his after aggressive rehab. Upon arrival he was noted to have 102.5 fever so septic work-up initiated along with IV antibiotics empirically. Covid test was negative and chest x-ray revealed no pneumonia and urinalysis was normal. Currently his and son are at the bedside. His health care legal assistant is Dr. Estrada. Past Yrjivhn-Krdkcv-Uqamcl Hx Past Med/Social Hx: Reviewed Nursing Past Med/Soc Hx, Reviewed and Corrections made Patient Social History Marrital Status: Employed/Student: employed Alcohol Use: Denies Use Smoking Status: Never a Smoker Former Smoker, Quit: Sep 26, 1977 Recent Hopitalizations: No Immunizations Up To Date Tetanus Booster (TDap): Unknown Pediatric: No Date of Pneumonia Vaccine: Feb 02, 2016 Date of Influenza Vaccine: Mar 02, 2021 Seasonal Allergies Seasonal Allergies: Yes Past Medical History Surgeries: Cardiac, Gallbladder, Joint Replacement, Orthopedic Cardiac: Atrial Fibrillation, High Cholesterol, Hypertension Reproductive: No Sexually Transmitted Disease: No HIV/AIDS: No Gastrointestinal: Gastroesophageal Reflux, Gall Bladder Disease Loss of Vision: Bilateral Hearing Impairment: Denies Cancer: Skin Adverse Reaction to Blood Desouza: No (N/A) Prior Level of Function Bed Mobility: 6 Transfers: 6 Gait: 6 Stairs: 6 Indoor Mobility (Ambulation): Independent Stairs: Independent Self Care: Independent Functional Cognition: Independent Occupation: Technology Trainer, [employer] [address] Self: Yes Current Level of Fuctioning Roll Left to Right: 3 Sit to Lyin Lying to Sitting/Side of Bed: 3 Sit to Stand: 4 Chair/Eai-md-Bjckb Xfer: 4 Car Transfer: 3 Does the Patient Walk: Yes Mode of Locomotion: Walk Anticipated Mode of Locomotion: Walk Walk 10 feet: 88 Walk 50 ft with 2 Turns: 88 Walk 150 ft: 88 Walking 10ft on uneven surface: 88 Gait Assistive Device: Parallel Bars Does the Pt Use a Wheelchair: Yes Wheelchair Distance: 150' Wheel 50 ft with 2 turns: 4 Wheel 150 ft: 4 Type of Wheelchair: Manual 1 Step (curb): 88 4 Steps: 88 12 Steps: 88 Picking up an Object: 4 Eatin Oral Hygiene: 7 Shower/Bathe Self: 7 Upper Body Dressin Lower Body Dressin On/Off Footwear: 7 Toileting Hygiene: 7 PM&R Allergy/Meds/Data Review Allergies Coded Allergies: morphine (Verified Adverse Reaction, Intermediate, Nausea, chest heaviness, abdominal burning, 03/22/21) Home Medications Scheduled Acetaminophen (Acetaminophen Extra Strength), 1,000 MG PO Q8H Amlodipine Besylate (Amlodipine Besylate), 10 MG PO DAILY, (Reported) Apixaban (Eliquis), 10 MG PO BID Aspirin (Aspir 81), 81 MG PO DAILY, (Reported) Cetirizine HCl (Zyrtec), 10 MG PO DAILY, (Reported) Cholecalciferol (Vitamin D3) (Vitamin D3), 2,000 UNIT PO DAILY, (Reported) Dutasteride (Dutasteride), 0.5 MG PO HS Magnesium Oxide (Magnesium), 400 MG PO BID, (Reported) Metoprolol Succinate (Toprol Xl), 25 MG PO DAILY, (Reported) Omeprazole (Omeprazole), 20 MG PO BID, (Reported) Rosuvastatin Calcium (Crestor), 10 MG PO HS, (Reported) Scheduled PRN Hydrocodone Bit/Acetaminophen (Lortab 5 Mg Tablet), 1-2 TAB PO 4-6HR PRN for PAIN Current Medications Current Medications Reviewed Laboratory Data Laboratory Tests 03/30/21 16:50: SARS-CoV-2 RNA (RT-PCR) Not Detected 03/30/21 17:40: Lactic Acid Level 1.47 Review of Systems Constitutional: see HPI, malaise, weakness EENTM: no symptoms reported Respiratory: no symptoms reported Cardiovascular: no symptoms reported Gastrointestinal: no symptoms reported Genitourinary: no symptoms reported Musculoskeletal: back pain, joint pain Skin: no symptoms reported Psychiatric/Neurological: No Symptoms Reported All Other Systems Reviewed Negative Unless Noted: Yes Physical Exam Physical Exam Vital Signs Vital Signs - First Documented 03/30/21 03/30/21 15:56 16:40 Temp 39.2 Pulse 95 Resp 20 B/P (MAP) 131/63 (85) Pulse Ox 98 O2 Delivery Room Air Capillary Refill : Height, Weight, BMI Height: 5'11.00" Weight: 226lbs. 0.0oz. 102.495396un; 32.00 BMI Method: General Appearance: No Apparent Distress, WD/WN Eyes: Bilateral Eye Normal Inspection, Bilateral Eye PERRL HEENT: PERRL/EOMI, Normal ENT Inspection, Pharynx Normal Neck: Full Range of Motion, Normal Inspection, Non Tender, Supple, Carotid Bruit Respiratory: Chest Non Tender, Lungs Clear, Normal Breath Sounds, No Accessory Muscle Use, No Respiratory Distress Cardiovascular: Regular Rate, Rhythm, No Edema, No Gallop, No JVD, No Murmur, Normal Peripheral Pulses Gastrointestinal: Normal Bowel Sounds, No Organomegaly, No Pulsatile Mass, Non Tender, Soft Back: Normal Inspection, No CVA Tenderness, No Vertebral Tenderness Extremity: Normal Capillary Refill, Normal Inspection, Normal Range of Motion (Except lower extremities due to pain), Non Tender, No Calf Tenderness, No Pedal Edema Neurologic/Psychiatric: Alert, Oriented x3, No Motor/Sensory Deficits, Normal Mood/Affect Skin: Normal Color, Warm/Dry Lymphatic: No Adenopathy PM&R Medical Assessment & Plan REHAB/MEDICAL ASSESSMENT AND PLAN: REHAB IMPAIRMENT GROUP: Multiple orthopedic fractures due to trauma ETIOLOGIC DIAGNOSIS: Multiple orthopedic fractures due to trauma The comorbidities that impact the patients function and/or functional outcome by: Pulmonary embolism, fever upon admission to inpatient rehab unit REHAB PLAN: The patient is being admitted to our comprehensive inpatient rehabilitation facility and can tolerate the intensity of service consisting of at least: 180 minutes of therapy a day, 5 out of 7 days a week Rehab treatment will consist of: PT and OT will focus on regaining function with assistive devices and increasing independence in ADLs The patient/family has a good understanding of our discharge process and will benefit from an interdisciplinary inpatient rehabilitation program. The patient has potential to make improvement and is in need of at least two of the following multidisciplinary therapies including but not limited to physical, occupational, speech, and prosthetics and orthotics. Additionally the patient will need services from respiratory, nutritional services, wound care, psychology, etc. (Customize this to each patient). Given the patients complex condition and risk of further medical complications, rehabilitation services cannot be safely or effectively provided at a lower level of care such as a jail facility. BARRIERS TO DISCHARGE: Multiple fractures ESTIMATED LOS: 14 days DISPOSITION: Home RELEVANT CHANGES SINCE PREADMISSION SCREENING: I have compared the patients medical and functional status at the time of the preadmission screening and there are: No changes PROGNOSIS: Good REHABILITATION GOALS: 1.PT and OT will focus on regaining function with assistive devices and increasing independence in ADLs All the above goals were reviewed with the patient and he/she is in agreement. By signing this document, I acknowledge that I have personally performed a full physical examination on this patient within 24 hours of admission to this inpatient rehabilitation facility and have determined the patient to be able to tolerate the above course of treatment at an intensive level for a reasonable period of time. I will be completing a detailed individualized Plan of Care for this patient by day #4 of the patients stay based upon the Preadmission Screen, the Post-Admission Evaluation, and the therapy evaluations. Admission Dx/Comorbidities: (1) Closed left acetabular fracture Status: Acute ICD Codes: S32.402A - Unspecified fracture of left acetabulum, initial enco unter for closed fracture Assessment/Plan Assessment and Plan Assess & Plan/Chief Complaint Assessment: Fall from ladder Bilateral acetabular fractures Acute pulmonary embolism placed on anticoagulation History of atrial fibrillation status post ablation Fever of 102.5 upon admission to inpatient rehab unit negative except for white count of 19,000 Abnormal complete blood count with differential will order peripheral smear and LDH Plan: Pain control Bowel regimen Supportive care CLAUDIA KELLY DO Mar 30, 2021 18:11
[2021-03-30 18:19] LABS: ALBUMIN 2.7 GM/DL (3.2-4.5); POTASSIUM 3.9 MMOL/L (3.6-5.0)
[2021-03-30 18:22] LABS: TOTAL PROTEIN 5.3 GM/DL (6.4-8.2)
[2021-03-30 18:23] LABS: BILIRUBIN,TOTAL 1.3 MG/DL (0.1-1.0)
[2021-03-30 18:25] LABS: CREATININE SERUM 0.75 MG/DL (0.60-1.30)
[2021-03-30 18:32] LABS: CLARITY,URINE CLEAR; COLOR,URINE YELLOW; GLUCOSE, URINE (UA) NEGATIVE (NEGATIVE); KETONES,URINE NEGATIVE (NEGATIVE); LEUKOCYTE ESTERASE ,URINE NEGATIVE (NEGATIVE); NITRITE,URINE NEGATIVE (NEGATIVE); PH,URINE 8.5 (5-9); PROTEIN,URINE TRACE (NEGATIVE)
[2021-03-30 18:36] LABS: ATYPICAL LYMPHOCYTES 3 %; EOSINOPHILS % (MANUAL) 1 %; LYMPHOCYTES % (MANUAL) 9 %; MONOCYTES % (MANUAL) 7 %; NEUTROPHILS % (MANUAL) 80 %; POIKILOCYTOSIS SLIGHT; POLYCHROMASIA SLIGHT
[2021-03-30 18:40] LABS: BACTERIA,URINE FEW /HPF; BILIRUBIN,URINE 1+ (NEGATIVE); SQUAMOUS EPITHELIAL CELL,UR RARE /HPF; WBC,URINE RARE /HPF
[2021-03-30] MEDS: cefTRIAXone 1 GM PRE-MIX 50 ML IV SCH (19:02)
[2021-03-30] MEDS: LACTOBACILLUS ACIDOPHILUS (PROBIOTIC) CAPSULE PO SCH (19:02)
[2021-03-30 19:46] VITALS: BP 104/68
[2021-03-30] MEDS: polyethylene glycoL POWDER 17 GM (MIRALAX) PACK PO SCH (21:00)
[2021-03-30] MEDS ORDERED: ROSUVASTATIN 10 MG (CRESTOR) TABLET PO SCH (21:00)
[2021-03-30] MEDS: MAGNESIUM OXIDE (MAG-OX)400 MG TAB PO SCH (21:48)
[2021-03-30] MEDS: APIXABAN 5 MG (ELIQUIS) TABLET PO SCH (21:48)
[2021-03-30] MEDS: SENNA W/DOCUSATE (SENOKOT S) TABLET PO SCH (21:49)
[2021-03-30] MEDS: PANTOPRAZOLE 20 MG TABLET (PROTONIX) PO SCH (21:49)
[2021-03-30] MEDS: DOCUSATE SODIUM 100 MG (COLACE) CAP PO SCH (21:50)
[2021-03-30] MEDS: FINASTERIDE (PROSCAR) 5 MG TAB PO SCH (21:50)
--- NOTE | 2021-03-31 06:09 | PM&R Progress Note ---
Subjective HPI/CC On Admission Date Seen by Provider: Mar 31, 2021 Time Seen by Provider: 08:30 Subjective/Events-last exam 03/31/2021: Pt doing well Still remains tachycardic No fever Procalcitonin of 0.23 Could be a bronchial component since CXR and urine were both negative Overall doing much better at bedside Review of Systems Musculoskeletal: shoulder pain, arm pain, back pain, leg pain Focused Exam Lactate Level 03/30/21 17:40: Lactic Acid Level 1.47 Objective Exam Vital Signs Vital Signs Date Time Temp Pulse Resp B/P (MAP) Pulse Ox O2 Delivery O2 Flow Rate FiO2 03/31/21 21:48 97 Room Air 03/31/21 20:00 37.2 101 20 95/64 (74) Capillary Refill : General Appearance: No Apparent Distress, WD/WN HEENT: PERRL/EOMI, Normal ENT Inspection, Pharynx Normal Neck: Full Range of Motion, Normal Inspection, Non Tender, Supple, Carotid Bruit Respiratory: Chest Non Tender, Lungs Clear, Normal Breath Sounds, No Accessory Muscle Use, No Respiratory Distress Cardiovascular: Regular Rate, Rhythm, No Edema, No Gallop, No JVD, No Murmur, Normal Peripheral Pulses Gastrointestinal: Normal Bowel Sounds, No Organomegaly, No Pulsatile Mass, Non Tender, Soft Back: Normal Inspection, No CVA Tenderness, No Vertebral Tenderness Extremity: Normal Capillary Refill, Normal Inspection, Normal Range of Motion (Except lower extremities due to pain), Non Tender, No Calf Tenderness, No Pedal Edema Neurologic/Psychiatric: Alert, Oriented x3, No Motor/Sensory Deficits, Normal Mood/Affect Skin: Normal Color, Warm/Dry Lymphatic: No Adenopathy Results/Procedures Lab Laboratory Tests 03/31/21 05:15 03/31/21 06:16 Patient resulted labs reviewed. FIM Transfers Therapy Code Descriptions/Definitions Functional Delta Measure: 0=Not Assessed/NA 4=Minimal Assistance 1=Total Assistance 5=Supervision or Setup 2=Maximal Assistance 6=Modified Delta 3=Moderate Assistance 7=Complete IndependenceSCALE: Activities may be completed with or without assistive devices. 4-Bmpwkyoctt-odqqsbx completes the activity by him/herself with no assistance from a helper. 5-Set-up or Clean-up Assistance-helper sets up or cleans up; patient completes activity. Constable assists only prior to or following the activity. 4-Supervision or Touching Assistance-helper provides verbal cues and/or touching/steadying and/or contact guard assistance as patient completes activi ty. Assistance may be provided throughout the activity or intermittently. 3-Partial/Moderate Assistance-helper does LESS THAN HALF the effort. Constable lifts, holds or supports trunk or limbs, but provides less than half the effort. 2-Substantial/Maximal Assistance-helper does MORE THAN HALF the effort. Constable lifts or holds trunk or limbs and provides more than half the effort. 8-Jebfkuxjh-sbjiyp does ALL the effort. Patient does none of the effort to complete the activity. Or, the assistance of 2 or more helpers is required for the patient to complete the activity. If activity was not attempted, code reason: 7-Patient Refused. 9-Not Applicable-not attempted and the patient did not perform the activity before the current illness, exacerbation or injury. 10-Not Attempted due to Environmental Limitations-(lack of equipment, weather restraints, etc.). 88-Not Attempted due to Medical Conditions or Safety Concerns. Roll Left to Right (QC): 3 Sit to Lying (QC): 3 Sit to Stand (QC): 4 Chair/Lqs-st-Pggrm Xfer(QC): 4 Car Transfer (QC): 3 Gait Training Does the Patient Walk?: Yes Walk 10 feet (QC): 88 Walk 50 ft with 2 Turns(QC): 88 Walk 150 ft (QC): 88 Walking 10ft/uneven surface-QC: 88 Gait Assistive Device: Parallel Bars Wheelchair Training Does the Pt Use a Wheelchair?: Yes Distance: 150' Wheel 50 ft with 2 turns (QC): 4 Wheel 150 ft (QC): 4 Type of Wheelchair: Manual Stair Training 1 Step (curb) (QC): 88 4 Steps (QC): 88 12 Steps (QC): 88 Balance Picking up an Object (QC): 4 ADL-Treatment Eating (QC): 6 Oral Hygiene (QC): 7 Shower/Bathe Self (QC): 7 Upper Body Dressing (QC): 7 Lower Body Dressing (QC): 7 On/Off Footwear (QC): 7 Toileting Hygiene (QC): 7 Assessment/Plan Assessment and Plan Assess & Plan/Chief Complaint Assessment: Fall from ladder Bilateral acetabular fractures Acute pulmonary embolism placed on anticoagulation History of atrial fibrillation status post ablation Fever of 102.5 upon admission to inpatient rehab unit negative except for white count of 19,000 placed on antibiotics empirically Abnormal complete blood count with differential will order peripheral smear and LDH Plan: Pain control Bowel regimen Supportive care 03/31/2021: Continue antibiotics Pain control (1) Closed left acetabular fracture Status: Acute CLAUDIA KELLY DO Mar 31, 2021 06:09
[2021-03-31 06:36] LABS: ABSOLUTE RETIC # 145 10e9/uL (24-90); BASOPHILS # (AUTO) 0.1 10^3/uL (0.0-0.1); BASOPHILS % (AUTO) 1 % (0-10); EOSINOPHILS # (AUTO) 0.4 10^3/uL (0.0-0.3); EOSINOPHILS % (AUTO) 3 % (0-10); HEMATOCRIT 30 % (40-54); HEMOGLOBIN 10.1 g/dL (13.3-17.7); LYMPHOCYTES # (AUTO) 1.9 10^3/uL (1.0-4.0); LYMPHOCYTES % (AUTO) 14 % (12-44); MEAN CORPUSCULAR HEMOGLOBIN 30 pg (25-34); MEAN CORPUSCULAR HGB CONC 34 g/dL (32-36); MEAN CORPUSCULAR VOLUME 89 fL (80-99); MEAN PLATELET VOLUME 9.2 fL (9.0-12.2); MONOCYTES # (AUTO) 1.5 10^3/uL (0.0-1.0); MONOCYTES % (AUTO) 11 % (0-12); NEUTROPHILS # (AUTO) 9.3 10^3/uL (1.8-7.8); NEUTROPHILS % (AUTO) 67 % (42-75); PLATELET COUNT 485 10^3/uL (130-400); RETICULOCYTE % 4.29 % (0.50-2.40); WHITE BLOOD COUNT 13.8 10^3/uL (4.3-11.0)
[2021-03-31 06:58] LABS: ANISOCYTOSIS SLIGHT; BAND NEUTROPHILS 1 %; BASOPHILS % (MANUAL) 1 %; EOSINOPHILS % (MANUAL) 3 %; LYMPHOCYTES % (MANUAL) 15 %; MONOCYTES % (MANUAL) 6 %; MYELOCYTES % 1 %; NEUTROPHILS % (MANUAL) 73 %; POLYCHROMASIA SLIGHT
[2021-03-31 07:00] LABS: ALBUMIN 2.5 GM/DL (3.2-4.5); CALCIUM 8.1 MG/DL (8.5-10.1); CREATININE SERUM 0.74 MG/DL (0.60-1.30); POTASSIUM 3.7 MMOL/L (3.6-5.0)
[2021-03-31 07:31] VITALS: BP 120/67
[2021-03-31] MEDS ORDERED: ROSU20TA32 PO (07:52)
[2021-03-31] MEDS ORDERED: ASPI-1238 PO (07:52)
[2021-03-31] MEDS ORDERED: OXC5T PO (07:52)
[2021-03-31] MEDS ORDERED: APIX5TAB PO (07:52)
[2021-03-31] MEDS ORDERED: AMLO-250 PO (07:52)
[2021-03-31] MEDS ORDERED: ACET-2267 PO (07:52)
[2021-03-31] MEDS ORDERED: ERGO1250 PO (07:52)
[2021-03-31] MEDS ORDERED: DUTA0.5C36 PO (07:52)
[2021-03-31] MEDS: MAGNESIUM OXIDE (MAG-OX)400 MG TAB PO SCH ×2 (08:13→21:44)
[2021-03-31] MEDS: polyethylene glycoL POWDER 17 GM (MIRALAX) PACK PO SCH ×2 (08:13→21:51)
[2021-03-31] MEDS: SENNA W/DOCUSATE (SENOKOT S) TABLET PO SCH ×2 (08:13→21:52)
[2021-03-31] MEDS: LACTOBACILLUS ACIDOPHILUS (PROBIOTIC) CAPSULE PO SCH ×3 (08:13→18:40)
[2021-03-31] MEDS: ASPIRIN E.C. 81 MG (ECOTRIN) TAB PO SCH (08:13)
[2021-03-31] MEDS: PANTOPRAZOLE 20 MG TABLET (PROTONIX) PO SCH ×2 (08:14→21:45)
[2021-03-31] MEDS: DOCUSATE SODIUM 100 MG (COLACE) CAP PO SCH ×2 (08:14→21:50)
[2021-03-31] MEDS: APIXABAN 5 MG (ELIQUIS) TABLET PO SCH ×2 (08:14→21:45)
[2021-03-31] MEDS: LORATADINE (CLARITIN) 10 MG TAB PO SCH (08:14)
[2021-03-31] MEDS: cefTRIAXone 1 GM PRE-MIX 50 ML IV SCH (08:15)
[2021-03-31] MEDS: ACETAMINOPHEN 325 MG TABLET PO PRN (08:45)
[2021-03-31] MEDS ORDERED: VITAMIN D3 25 MCG (1,000 UNITS) TABLET PO SCH (09:00)
[2021-03-31] MEDS ORDERED: amLODIPine 10 MG (NORVASC) TAB PO SCH (09:00)
--- NOTE | 2021-03-31 09:11 | Consultation ---
History of Present Illness History of Present Illness Patient Consulted On(dottie/time) 03/31/21 09:11 Allergies and Home Medications Allergies Coded Allergies: morphine (Verified Adverse Reaction, Intermediate, Nausea, chest heaviness, abdominal burning, 03/22/21) Patient Home Medication List Acetaminophen (Tylenol Extra Strength) 500 Mg Tablet, 1,000 MG PO Q8H PRN for PAIN-MILD (1-4), (Reported) Entered as Reported by: BRUNO SUNG on 03/31/21751 Last Action: Reviewed Amlodipine Besylate (Amlodipine Besylate) 5 Mg Tablet, 5 MG PO HS, (Reported) Entered as Reported by: BRUNO SUNG on 03/31/21751 Last Action: Reviewed Apixaban (Eliquis) 5 Mg Tablet, 10 MG PO BID, (Reported) Entered as Reported by: BRUNO SUNG on 03/31/21751 Last Action: Reviewed Aspirin (Aspirin EC) 81 Mg Tablet., 81 MG PO DAILY, (Reported) Entered as Reported by: BRUNO SUNG on 03/31/21751 Last Action: Reviewed Cetirizine HCl (Zyrtec) 10 Mg Tablet, 10 MG PO DAILY PRN for ALLERGIES, (Reported) Entered as Reported by: IVELISSE GAYTAN on 09/26/171211 Last Action: Reviewed Dutasteride (Dutasteride) 0.5 Mg Capsule, 0.5 MG PO HS, (Reported) Entered as Reported by: BRUNO SUNG on 03/31/21751 Last Action: Reviewed Ergocalciferol (Vitamin D2) (Vitamin D2) 1,250 Mcg Capsule, 1,250 MCG PO THUR, (Reported) Entered as Reported by: BRUNO SUNG on 03/31/21751 Last Action: Reviewed Magnesium Oxide (Magnesium) 400 Mg Capsule, 400 MG PO BID, (Reported) Entered as Reported by: IVELISSE GAYTAN on 09/26/171211 Last Action: Reviewed Metoprolol Succinate (Toprol Xl) 25 Mg Tab.er.24h, 25 MG PO DAILY, (Reported) Entered as Reported by: IVELISSE GAYTAN on 09/26/171211 Last Action: Reviewed Omeprazole (Omeprazole) 20 Mg Tablet.dr, 20 MG PO BID, (Reported) Entered as Reported by: IVELISSE GAYTAN on 09/26/171211 Last Action: Reviewed Oxycodone Hcl (Oxyir Tablet) 5 Mg Tab, 5 MG PO Q4H PRN for PAIN-SEVERE (8-10), (Reported) Entered as Reported by: BRUNO SUNG on 03/31/21 075 Last Action: Reviewed Rosuvastatin Calcium (Rosuvastatin Calcium) 20 Mg Tablet, 20 MG PO HS, (Reported) Entered as Reported by: BRUNO SUNG on 03/31/21 075 Last Action: Reviewed Discontinued Medications Acetaminophen (Acetaminophen Extra Strength) 500 Mg Tablet, 1,000 MG PO Q8H Discontinued Reason: No Longer Taking Prescribed by: IVELISSE CARPENTER on 03/30/211547 Last Action: Discontinued Amlodipine Besylate (Amlodipine Besylate) 10 Mg Tablet, 10 MG PO DAILY, (Reported) Discontinued Reason: Duplicate Order Entered as Reported by: IVELISSE GAYTAN on 09/26/171211 Last Action: Discontinued Apixaban (Eliquis) 5 Mg Tablet, 10 MG PO BID Discontinued Reason: Duplicate Order Prescribed by: IVELISSE CARPENTER on 03/30/211547 Last Action: Discontinued Cholecalciferol (Vitamin D3) (Vitamin D3) 2,000 Unit Tablet, 2,000 UNIT PO DAILY, (Reported) Discontinued Reason: No Longer Taking Entered as Reported by: IVELISSE GAYTAN on 09/26/171211 Last Action: Discontinued Dutasteride (Dutasteride) 0.5 Mg Capsule, 0.5 MG PO HS Discontinued Reason: Duplicate Order Prescribed by: IVELISSE CARPENTER on 03/30/211547 Last Action: Discontinued Hydrocodone Bit/Acetaminophen (Lortab 5 Mg Tablet) 1 Tab Tab, 1-2 TAB PO 4-6HR PRN for PAIN Discontinued Reason: No Longer Taking Prescribed by: BURT ZAYAS on 09/28/17 0940 Last Action: Discontinued Rosuvastatin Calcium (Crestor) 10 Mg Tablet, 10 MG PO HS, (Reported) Discontinued Reason: No Longer Taking Entered as Reported by: JEAN MARIE COOMBS on 09/28/17 0837 Last Action: Discontinued Past Pbglxuf-Izoyvt-Dzoaoz Hx Patient Social History Marrital Status: Employed/Student: employed Smoking Status: Never a Smoker Immunizations Up To Date Date of Influenza Vaccine: Mar 02, 2021 Tetanus Booster (TDap): Less Than 5 Years PED Vaccines UTD: No Date of Pneumonia Vaccine: Feb 02, 2016 Seasonal Allergies Seasonal Allergies: Yes Past Medical History Surgeries: Cardiac, Gallbladder, Joint Replacement, Orthopedic Atrial Fibrillation, High Cholesterol, Hypertension Sexually Transmitted Disease: No HIV/AIDS: No Gastroesophageal Reflux, Gall Bladder Disease Loss of Vision: Bilateral Hearing Impairment: Denies Skin Adverse Reaction/Blood Tranf: No (N/A) Review of Systems All Other Systems Reviewed All Other Systems Reviewed: Yes Physical Exam Vital Signs Vital Signs - First Documented 03/30/21 03/30/21 15:56 16:40 Temp 39.2 Pulse 95 Resp 20 B/P (MAP) 131/63 (85) Pulse Ox 98 O2 Delivery Room Air Capillary Refill : Height, Weight, BMI Height: 5'11.00" Weight: 226lbs. 0.0oz. 102.853579oy; 32.00 BMI Method: ANABELLA SHARP MD Mar 31, 2021 09:11
[2021-03-31] MEDS: AZITHROMYCIN INJECTION 250 MG in NS (IVPB) 250 ML IV SCH (10:00)
--- NOTE | 2021-03-31 10:20 | Physical Therapy Daily Note ---
PT Daily Note-Current Subjective Pt. agrees to Rx. OT PT co Rx for funct mob, dressing, bed side bath, TRFs and therex Pain Numeric Pain Scale: 5-Moderate Pain Location: Left Location Body Site: Hip Pain Description: Ache Mental Status Patient Orientation: Normal For Age Attachments: IV Transfers SCALE: Activities may be completed with or without assistive devices. 5-Mkwvqeelpz-wwzlqfr completes the activity by him/herself with no assistance from a helper. 5-Set-up or Clean-up Assistance-helper sets up or cleans up; patient completes activity. Afton assists only prior to or following the activity. 4-Supervision or Touching Assistance-helper provides verbal cues and/or touching/steadying and/or contact guard assistance as patient completes activity. Assistance may be provided throughout the activity or intermittently. 3-Partial/Moderate Assistance-helper does LESS THAN HALF the effort. Afton lifts, holds or supports trunk or limbs, but provides less than half the effort. 2-Substantial/Maximal Assistance-helper does MORE THAN HALF the effort. Afton lifts or holds trunk or limbs and provides more than half the effort. 2-Phmzeyqea-dxrbxh does ALL the effort. Patient does none of the effort to complete the activity. Or, the assistance of 2 or more helpers is required for the patient to complete the activity. If activity was not attempted, code reason: 7-Patient Refused. 9-Not Applicable-not attempted and the patient did not perform the activity before the current illness, exacerbation or injury. 10-Not Attempted due to Environmental Limitations-(lack of equipment, weather restraints, etc.). 88-Not Attempted due to Medical Conditions or Safety Concerns. Roll Left & Right (QC): 3 Sit to Lying (QC): 3 Lying to Sitting/Side of Bed(Q: 3 Sit to Stand (QC): 3 Chair/Lfj-dq-Egzer Xfer(QC): 4 pt. still finding best practice/technique for sup to sit to stand TRFs, troubleshooting etc, sit to stands from bed require increased height and instruction for use of hands on bed, as well as mod assist Weight Bearing Left Lower Extremity: Left Non Weight Bearing Gait Training Gait Assistive Device: FWW SPT only for TRF bed to recliner. will acquire one shoe for right foot from to facilitate better NWBing LLE Exercises Supine Ex: Ankle pumps, Quad Set, Glut sets, Heel Slides (assisted left), Short Arc Quads, Scooting (up in recliner), Straight leg raise (assisted), Hip abd/add (RLE only) Supine Reps: 15 Seated Therapy Exercises: Long arc quads Seated Reps: 15 Treatments PT OT co Rx for funct mob TRFs, bed mob secondary to safety and needs for 2 skilled clinicians instructing U&L extrem coordinating activity Assessment Current Status: Good Progress PT Short Term Goals Short Term Goals Time Frame: Apr 06, 2021 Roll Left & Right: 4 (SBA) Sit to lyin (CGA) Lying to sitting on side of be: 3 (Peyton) Sit to stand: 4 (SBA) Chair/nww-oa-qcfrk transfer: 4 (SBA) Walk 10 feet: 4 PT Ssn/Ssbn Assistant Navigator Goals Ssn/Ssbn Assistant Navigator Goals PT Ssn/Ssbn Assistant Navigator Goals Time Frame: Apr 20, 2021 Roll Left & Right (QC): 5 Sit to Lying (QC): 4 Lying-Sitting on Side/Bed(QC): 4 Sit to Stand (QC): 4 Chair/Dve-ae-Kacia Xfer(QC): 4 Toilet Transfer (QC): 4 Car Transfer (QC): 4 Does the Patient Walk: Yes Walk 10 feet (QC): 4 Walk 50ft with 2 Turns (QC): 4 Walk 150 ft (QC): 88 Walking 10ft on Uneven Surface: 4 1 Step (curb) (QC): 4 4 Steps (QC): 88 12 Steps (QC): 88 Picking up an Object (QC): 6 Wheel 50 feet with 2 turns (QC: 6 Wheel 150 feet: 6 PT Plan Treatment/Plan Treatment Plan: Continue Plan of Care Treatment Plan: Bed Mobility, Education, Functional Activity Nena, Functional Strength, Gait, Safety, Therapeutic Exercise, Transfers Treatment Duration: Apr 20, 2021 Frequency: At least 5 of 7 days/Wk (IRF) Estimated Hrs Per Day: 1.5 hours per day Patient and/or Family Agrees t: Yes Safety Risks/Education Patient Education: Transfer Techniques, Reviewed Precautions, Correct Positioning, Disease Process, Safety Issues Teaching Recipient: Patient Teaching Methods: Demonstration, Discussion Response to Teaching: Verbalize Understanding, Return Demonstration, Reinforcement Needed Time/GCodes Time In: 930 Time Out: 1015 Total Billed Treatment Time: 45 Total Billed Treatment 1,FA25m,EX20m ZENY AIKEN CERTIFIED LEGAL INVESTIGATOR Mar 31, 2021 10:20
--- NOTE | 2021-03-31 10:22 | Occupational Ther Daily Note ---
OT Current Status-Daily Note Subjective Pt in bed, at bedside. Pt agreeable to OT tx, then OT/PT cotreat. Pt has precaution, no Abduction/Adduction of L hip. Flexion is okay. Mental Status/Objective Patient Orientation: Person, Place, Time, Situation Attachments: IV ADL-Treatment Therapy Code Descriptions/Definitions Functional [place] Measure: 0=Not Assessed/NA 4=Minimal Assistance 1=Total Assistance 5=Supervision or Setup 2=Maximal Assistance 6=Modified [place] 3=Moderate Assistance 7=Complete IndependenceSCALE: Activities may be completed with or without assistive devices. 8-Ooadaqhsqe-giibten completes the activity by him/herself with no assistance from a helper. 5-Set-up or Clean-up Assistance-helper sets up or cleans up; patient completes activity. [place] assists only prior to or following the activity. 4-Supervision or Touching Assistance-helper provides verbal cues and/or touching/steadying and/or contact guard assistance as patient completes activity. Assistance may be provided throughout the activity or intermittently. 3-Partial/Moderate Assistance-helper does LESS THAN HALF the effort. [place] lifts, holds or supports trunk or limbs, but provides less than half the effort. 2-Substantial/Maximal Assistance-helper does MORE THAN HALF the effort. [place] lifts or holds trunk or limbs and provides more than half the effort. 1-Cthrsxekg-rqrclh does ALL the effort. Patient does none of the effort to complete the activity. Or, the assistance of 2 or more helpers is required for the patient to complete the activity. If activity was not attempted, code reason: 7-Patient Refused. 9-Not Applicable-not attempted and the patient did not perform the activity be fore the current illness, exacerbation or injury. 10-Not Attempted due to Environmental Limitations-(lack of equipment, weather restraints, etc.). 88-Not Attempted due to Medical Conditions or Safety Concerns. Eating (QC): 6 (IND) Oral Hygiene (QC): 5 (based on clincial judgment, set up assist at recliner.) Shower/Bathe Self (QC): 3 (Pt able to wash BUEs, chest, abdomen, periarea, thighs, and lower legs. Assistance provided for feet and buttocks.) Upper Body Dressing (QC): 5 (set up, pt able to doff/don pulling machine operator shirt.) Lower Body Dressing (QC): 2 (Assist threading BLEs into pants. Pt able to assist with pulling up past his knees, slight assistance required for pant hike.) On/Off Footwear: 1 (total assist with TedHose and gripper socks.) Toileting Hygiene (QC): 2 (Pt requires assistance with pant hike, and assistance washing buttocks.) Other Treatment Pt laying in bed, at bed side. OT gathered supplies for sponge bath. OT/PT cotreat due to skill of 2 clinicians required which a regional rehabilitation director could not perform in order to coordinate UE/LEs, decrease fall risk, and due to pt's limitations in strength, mobility, NWB status LLE, and endurance. OT focused on UE placement, cues for sequencing and safety, ADLs, PT focused on LE placement, gross overall movement and mobility/transfers. Pt transferred supine to sit EOB, completed sponge bath and dressing. Pt used FWW to transfer from EOB to recliner. OT cleaned up ADL session as PT performed LE exercises preparatory for standing. Post tx, pt in recliner, call light in reach and all needs met. Education OT Patient Education: Correct positioning, Energy conservation, Exercise program, Modified ADL techniques, Progress toward Goal/Update tx plan, Purpose of tx/functional activities, Rehab process, Safety issues Teaching Recipient: Patient Teaching Methods: Discussion Response to Teaching: Verbalize Understanding OT Short Term Goals Short Term Goals Time Frame: Apr 10, 2021 Shower/bathe self: 4 Lower body dressin Putting on/taking off footwear: 4 OT Training Developer Goals Senior Living Goals Time Frame: Apr 17, 2021 Eating (QC): 6 Oral Hygiene (QC): 6 Toileting Hygiene (QC): 6 Shower/Bathe Self (QC): 5 Upper Body Dressing (QC): 5 Lower Body Dressing (QC): 5 On/Off Footwear (QC): 5 Additional Goals: 1-Demonstrate ADL Tasks, 2-Verbalize Understanding, 3-ImproveStrength/Nena 1=Demonstrate adherence to instructed precautions during ADL tasks. 2=Patient will verbalize/demonstrate understanding of assistive devices/modifications for ADL. 3=Patient will improve strength/tolerance for activity to enable patient to per form ADL's. OT Education/Plan Problem List/Assessment Assessment: Decreased Activ Tolerance, Decreased UE Strength, Impaired Funct Balance, Impaired I ADL's, Impaired Self-Care Skills Discharge Recommendations Plan/Recommendations: Continue POC Treatment Plan/Plan of Care Patient would benefit from OT for education, treatment and training to promote independence in ADL's, mobility, safety and/or upper extremity function for ADL's. Plan of Care: ADL Retraining, Functional Mobility, Group Exercise/Act as Ind, UE Funct Exercise/Act Treatment Duration: Apr 17, 2021 Frequency: At least 5 of 7 days/Wk (IRF) Estimated Hrs Per Day: 1.5 hours per day Rehab Potential: Fair Time/GCodes Start Time: 09:15 Stop Time: 10:15 Total Time Billed (hr/min): 60 Billed Treatment Time 1, ADL 4 GUILLAUME ALMEIDA OT Mar 31, 2021 10:22
--- NOTE | 2021-03-31 13:15 | Occupational Ther Daily Note ---
OT Current Status-Daily Note Subjective Pt up in recliner, agreeable to OT Tx. ADL-Treatment Therapy Code Descriptions/Definitions Functional [place] Measure: 0=Not Assessed/NA 4=Minimal Assistance 1=Total Assistance 5=Supervision or Setup 2=Maximal Assistance 6=Modified [place] 3=Moderate Assistance 7=Complete IndependenceSCALE: Activities may be completed with or without assistive devices. 1-Mabkadagzy-qvcitqw completes the activity by him/herself with no assistance from a helper. 5-Set-up or Clean-up Assistance-helper sets up or cleans up; patient completes activity. [place] assists only prior to or following the activity. 4-Supervision or Touching Assistance-helper provides verbal cues and/or touching/steadying and/or contact guard assistance as patient completes activity. Assistance may be provided throughout the activity or intermittently. 3-Partial/Moderate Assistance-helper does LESS THAN HALF the effort. [place] lifts, holds or supports trunk or limbs, but provides less than half the effort. 2-Substantial/Maximal Assistance-helper does MORE THAN HALF the effort. [place] lifts or holds trunk or limbs and provides more than half the effort. 7-Wpheeufer-ougiiy does ALL the effort. Patient does none of the effort to co mplete the activity. Or, the assistance of 2 or more helpers is required for the patient to complete the activity. If activity was not attempted, code reason: 7-Patient Refused. 9-Not Applicable-not attempted and the patient did not perform the activity before the current illness, exacerbation or injury. 10-Not Attempted due to Environmental Limitations-(lack of equipment, weather restraints, etc.). 88-Not Attempted due to Medical Conditions or Safety Concerns. Other Treatment Pt transferred from recliner to w/c, min A sit to stand then CGA pivot. Pt propelled w/c to therapy gym. In order to increase BUE strength and activity tolerance, pt completed x15 reps for 12 mins, no rest breaks. Pt propelled w/c back to his room, transferring back to recliner. Post tx, pt in recliner, call light in reach and all meets. Education OT Patient Education: Correct positioning, Energy conservation, Exercise program, Modified ADL techniques, Progress toward Goal/Update tx plan, Purpose of tx/functional activities, Rehab process Teaching Recipient: Patient Teaching Methods: Discussion Response to Teaching: Verbalize Understanding OT Short Term Goals Short Term Goals Time Frame: Apr 10, 2021 Shower/bathe self: 4 Lower body dressin Putting on/taking off footwear: 4 OT Retirement Goals Barmaid Goals Time Frame: Apr 17, 2021 Eating (QC): 6 Oral Hygiene (QC): 6 Toileting Hygiene (QC): 6 Shower/Bathe Self (QC): 5 Upper Body Dressing (QC): 5 Lower Body Dressing (QC): 5 On/Off Footwear (QC): 5 Additional Goals: 1-Demonstrate ADL Tasks, 2-Verbalize Understanding, 3-ImproveStrength/Nena 1=Demonstrate adherence to instructed precautions during ADL tasks. 2=Patient will verbalize/demonstrate understanding of assistive devices/modifications for ADL. 3=Patient will improve strength/tolerance for activity to enable patient to perform ADL's. OT Education/Plan Problem List/Assessment Assessment: Decreased Activ Tolerance, Decreased UE Strength, Impaired Funct Balance, Impaired I ADL's, Impaired Self-Care Skills Discharge Recommendations Plan/Recommendations: Continue POC Treatment Plan/Plan of Care Patient would benefit from OT for education, treatment and training to promote independence in ADL's, mobility, safety and/or upper extremity function for ADL's. Plan of Care: ADL Retraining, Functional Mobility, Group Exercise/Act as Ind, UE Funct Exercise/Act Treatment Duration: Apr 17, 2021 Frequency: At least 5 of 7 days/Wk (IRF) Estimated Hrs Per Day: 1.5 hours per day Rehab Potential: Fair Time/GCodes Start Time: 13:00 Stop Time: 13:30 Total Time Billed (hr/min): 30 Billed Treatment Time 1, FA (15'), EX (15') GUILLAUME ALMEIDA OT Mar 31, 2021 13:15
--- NOTE | 2021-03-31 14:37 | Physical Therapy Daily Note ---
PT Daily Note-Current Subjective Pt. agrees to Rx. Thinks his OS would be agreeable to upgrade his WBing status to TDWB L. Pain Location: No Pain Reported Mental Status Patient Orientation: Normal For Age Transfers SCALE: Activities may be completed with or without assistive devices. 5-Eagvatsmsq-xhwsiyr completes the activity by him/herself with no assistance from a helper. 5-Set-up or Clean-up Assistance-helper sets up or cleans up; patient completes activity. [place] assists only prior to or following the activity. 4-Supervision or Touching Assistance-helper provides verbal cues and/or touching/steadying and/or contact guard assistance as patient completes activity. Assistance may be provided throughout the activity or intermittently. 3-Partial/Moderate Assistance-helper does LESS THAN HALF the effort. [place] lifts, holds or supports trunk or limbs, but provides less than half the effort. 2-Substantial/Maximal Assistance-helper does MORE THAN HALF the effort. [place] lifts or holds trunk or limbs and provides more than half the effort. 9-Mfmanpccn-zjqfcs does ALL the effort. Patient does none of the effort to complete the activity. Or, the assistance of 2 or more helpers is required for the patient to complete the activity. If activity was not attempted, code reason: 7-Patient Refused. 9-Not Applicable-not attempted and the patient did not perform the activity before the current illness, exacerbation or injury. 10-Not Attempted due to Environmental Limitations-(lack of equipment, weather restraints, etc.). 88-Not Attempted due to Medical Conditions or Safety Concerns. Roll Left & Right (QC): 3 Sit to Lying (QC): 4 Lying to Sitting/Side of Bed(Q: 3 Sit to Stand (QC): 4 Chair/Nvi-hb-Nwdyj Xfer(QC): 4 Weight Bearing Left Lower Extremity: Left Non Weight Bearing Gait Training Does the Patient Walk?: Yes Gait Assistive Device: Parallel Bars 7 ft in // bars with NWBing LLE with knee bent in hamstring curl to prevent wt bearing, pt feeling more comfortable wit this. w/c right behind pt. Wheelchair Training Does the Pt Use a Wheelchair?: Yes Wheel 50 ft with 2 turns (QC): 6 Wheel 150 ft (QC): 6 Type of Wheelchair: Manual pt. needs assist to use leg rest for left lower extrem, needs reminders to brake Exercises Supine Ex: Ankle pumps, Quad Set, Rolling, Glut sets, Heel Slides, Short Arc Quads, Scooting, Straight leg raise (assisted) Supine Reps: 15 Treatments w/c mob, TRFs, therex Assessment Current Status: Good Progress gives full effort, fatigues with Rx PT Short Term Goals Short Term Goals Time Frame: Apr 06, 2021 Roll Left & Right: 4 (SBA) Sit to lyin (CGA) Lying to sitting on side of be: 3 ([place]) Sit to stand: 4 (SBA) Chair/wae-ip-pwucb transfer: 4 (SBA) Walk 10 feet: 4 PT Long-Term Goals Long-Term Goals PT Typewriter Repairer Goals Time Frame: Apr 20, 2021 Roll Left & Right (QC): 5 Sit to Lying (QC): 4 Lying-Sitting on Side/Bed(QC): 4 Sit to Stand (QC): 4 Chair/Xtp-jt-Shloq Xfer(QC): 4 Toilet Transfer (QC): 4 Car Transfer (QC): 4 Does the Patient Walk: Yes Walk 10 feet (QC): 4 Walk 50ft with 2 Turns (QC): 4 Walk 150 ft (QC): 88 Walking 10ft on Uneven Surface: 4 1 Step (curb) (QC): 4 4 Steps (QC): 88 12 Steps (QC): 88 Picking up an Object (QC): 6 Wheel 50 feet with 2 turns (QC: 6 Wheel 150 feet: 6 PT Plan Treatment/Plan Treatment Plan: Continue Plan of Care Treatment Plan: Bed Mobility, Education, Functional Activity Nena, Functional Strength, Gait, Safety, Therapeutic Exercise, Transfers Treatment Duration: Apr 20, 2021 Frequency: At least 5 of 7 days/Wk (IRF) Estimated Hrs Per Day: 1.5 hours per day Patient and/or Family Agrees t: Yes Safety Risks/Education Patient Education: Gait Training, Transfer Techniques, Correct Positioning, W/C Management, Disease Process, Safety Issues Teaching Recipient: Patient Teaching Methods: Demonstration, Discussion Response to Teaching: Verbalize Understanding, Return Demonstration, Reinforcement Needed Time/GCodes Time In: 1345 Time Out: 1430 Total Billed Treatment Time: 45 Total Billed Treatment 1,WC15m,EX15m,GT15m ZENY AIKEN COMPRESSOR STATIONS SUPERINTENDENT Mar 31, 2021 14:37
[2021-03-31 20:00] VITALS: BP 95/64
[2021-03-31] MEDS: ROSUVASTATIN 20 MG (CRESTOR) TABLET PO SCH (21:44)
[2021-03-31] MEDS: FINASTERIDE (PROSCAR) 5 MG TAB PO SCH (21:45)
[2021-03-31] MEDS: amLODIPine 5 MG (NORVASC) TAB PO SCH (21:51)
--- NOTE | 2021-04-01 05:45 | PM&R Progress Note ---
Subjective HPI/CC On Admission Date Seen by Provider: Apr 01, 2021 Time Seen by Provider: 11:15 Subjective/Events-last exam 04/01/2021: Pt doing well Bowels moved this morning No complaints No fever Norvasc held due to BP of 95/54 Zithromax and Rocephin maintained empirically 03/31/2021: Pt doing well Still remains tachycardic No fever Procalcitonin of 0.23 Could be a bronchial component since CXR and urine were both negative Overall doing much better at bedside Review of Systems General: Fatigue, Malaise Musculoskeletal: leg pain Focused Exam Lactate Level 03/30/21 17:40: Lactic Acid Level 1.47 Objective Exam Vital Signs Vital Signs Date Time Temp Pulse Resp B/P (MAP) Pulse Ox O2 Delivery O2 Flow Rate FiO2 04/01/21 22:40 37.6 04/01/21 21:20 96 Room Air 04/01/21 20:00 97 18 120/68 (85) Capillary Refill : General Appearance: No Apparent Distress, WD/WN HEENT: PERRL/EOMI, Normal ENT Inspection, Pharynx Normal Neck: Full Range of Motion, Normal Inspection, Non Tender, Supple, Carotid Bruit Respiratory: Chest Non Tender, Lungs Clear, Normal Breath Sounds, No Accessory Muscle Use, No Respiratory Distress Cardiovascular: Regular Rate, Rhythm, No Edema, No Gallop, No JVD, No Murmur, Normal Peripheral Pulses Gastrointestinal: Normal Bowel Sounds, No Organomegaly, No Pulsatile Mass, Non Tender, Soft Back: Normal Inspection, No CVA Tenderness, No Vertebral Tenderness Extremity: Normal Capillary Refill, Normal Inspection, Normal Range of Motion (Except lower extremities due to pain), Non Tender, No Calf Tenderness, No Pedal Edema Neurologic/Psychiatric: Alert, Oriented x3, No Motor/Sensory Deficits, Normal Mood/Affect Skin: Normal Color, Warm/Dry Lymphatic: No Adenopathy Results/Procedures Lab Patient resulted labs reviewed. FIM Transfers Therapy Code Descriptions/Definitions Functional [place] Measure: 0=Not Assessed/NA 4=Minimal Assistance 1=Total Assistance 5=Supervision or Setup 2=Maximal Assistance 6=Modified [place] 3=Moderate Assistance 7=Complete IndependenceSCALE: Activities may be completed with or without assistive devices. 1-Wvokpdrqjr-djqfiob completes the activity by him/herself with no assistance from a helper. 5-Set-up or Clean-up Assistance-helper sets up or cleans up; patient completes activity. [place] assists only prior to or following the activity. 4-Supervision or Touching Assistance-helper provides verbal cues and/or touch ing/steadying and/or contact guard assistance as patient completes activity. Assistance may be provided throughout the activity or intermittently. 3-Partial/Moderate Assistance-helper does LESS THAN HALF the effort. [place] lifts, holds or supports trunk or limbs, but provides less than half the effort. 2-Substantial/Maximal Assistance-helper does MORE THAN HALF the effort. [place] lifts or holds trunk or limbs and provides more than half the effort. 9-Nztmqlhsg-iszrdb does ALL the effort. Patient does none of the effort to complete the activity. Or, the assistance of 2 or more helpers is required for the patient to complete the activity. If activity was not attempted, code reason: 7-Patient Refused. 9-Not Applicable-not attempted and the patient did not perform the activity before the current illness, exacerbation or injury. 10-Not Attempted due to Environmental Limitations-(lack of equipment, weather restraints, etc.). 88-Not Attempted due to Medical Conditions or Safety Concerns. Roll Left to Right (QC): 3 Sit to Lying (QC): 4 Sit to Stand (QC): 4 Chair/Dib-kf-Jyjkx Xfer(QC): 4 Car Transfer (QC): 3 Gait Training Does the Patient Walk?: Yes Walk 10 feet (QC): 88 Walk 50 ft with 2 Turns(QC): 88 Walk 150 ft (QC): 88 Walking 10ft/uneven surface-QC: 88 Gait Assistive Device: Parallel Bars Wheelchair Training Does the Pt Use a Wheelchair?: Yes Distance: 150' Wheel 50 ft with 2 turns (QC): 6 Wheel 150 ft (QC): 6 Type of Wheelchair: Manual Stair Training 1 Step (curb) (QC): 88 4 Steps (QC): 88 12 Steps (QC): 88 Balance Picking up an Object (QC): 4 ADL-Treatment Eating (QC): 6 (IND) Oral Hygiene (QC): 5 (based on clincial judgment, set up assist at recliner.) Shower/Bathe Self (QC): 3 (Pt able to wash BUEs, chest, abdomen, periarea, thighs, and lower legs. Assistance provided for feet and buttocks.) Upper Body Dressing (QC): 5 (set up, pt able to doff/don head well puller shirt.) Lower Body Dressing (QC): 2 (Assist threading BLEs into pants. Pt able to assist with pulling up past his knees, slight assistance required for pant hike.) On/Off Footwear (QC): 1 (total assist with TedHose and gripper socks.) Toileting Hygiene (QC): 2 (Pt requires assistance with pant hike, and assistance washing buttocks.) Assessment/Plan Assessment and Plan Assess & Plan/Chief Complaint Assessment: Fall from ladder Bilateral acetabular fractures Acute pulmonary embolism placed on anticoagulation History of atrial fibrillation status post ablation Fever of 102.5 upon admission to inpatient rehab unit negative except for white count of 19,000 placed on antibiotics empirically Abnormal complete blood count with differential will order peripheral smear and LDH Plan: Pain control Bowel regimen Supportive care 03/31/2021: Continue antibiotics Pain control 04/01/2021: Continue empiric antibiotics Supportive care (1) Closed left acetabular fracture Status: Acute CLAUDIA KELLY DO Apr 01, 2021 05:45
--- NOTE | 2021-04-01 05:45 | Individualized Plan of Care ---
Individualized Plan of Care Rehab Nursing IPOC Order Admission Date Mar 30, 2021 at 13:30 Current Orders Orders Admission Order(Inpt,Obs,Sdc) (03/30/21 13:09) Vital Signs: Per Unit Policy ( ,,00 (03/30/21 13:09) Tcio Mahajan (03/30/21 13:09) Sequential Compression Device (03/30/21 13:09) Dietitian Assistant-Inpt Rehab Con (03/30/21 13:09) Rehab Nursing Orders-Ipoc (03/30/21 13:09) Physical Therapy Rehab Orders (03/30/21 13:09) Occupational Therapy Rehab Ord (03/30/21 13:09) Speech Therapy Rehab Orders (03/30/21 13:09) Cbc With Automated Diff (03/31/21 06:00) Comprehensive Metabolic Panel (03/31/21 06:00) Precautions (Aru) (03/30/21 13:09) Weekly Weight WEEK (03/30/21 13:09) Rehab-Intensity Of Therapy (03/30/21 13:09) Initiate Admission Nursing Pro .admission (03/30/21 13:09) Alprazolam Tablet (Xanax Tablet) (03/30/21 13:15) Calcium Carbonate Chew Tablet (Antacid C (03/30/21 13:15) Diphenhydramine Tablet (Benadryl Tablet) (03/30/21 13:15) Docusate Sodium Capsule (Colace Capsule) (03/30/21 21:00) Docusate Sodium Capsule (Colace Capsule) (03/30/21 13:15) Bisacodyl Suppository (Dulcolax Supposit (03/30/21 13:15) Lactulose Oral Solution (Enulose Oral So (03/30/21 13:15) Na Phos/Na Biphos Enema (Fleet Enema Yobany (03/30/21 13:15) Guaifenesin/Codeine Syrup (Robitussin Ac (03/30/21 13:15) Loperamide Tablet (Imodium Tablet) (03/30/21 13:15) Melatonin Tablet (Melatonin Tablet) (03/30/21 13:15) Polyethylene Glycol Powder Pkt (Miralax (12/13/21 21:00) Senna S Tablet (Senokot S Tablet) (03/30/21 21:00) Acetaminophen Tablet/Caplet (Tylenol T (03/30/21 13:15) Code/Resuscitation (03/30/21 13:09) Sequential Compression Device ONCE (03/30/21 13:09) Initiate Admission Nursing Pro .admission (03/30/21 13:09) General/Regular (03/30/21 Lunch) Admission Arrival Bed Request (03/30/21 13:30) Patient Visit (03/30/21 ) Speech Sound Lang Comp (03/30/21 ) Treat. Speech/Lang/Voice (03/30/21 ) Patient Visit (03/30/21 ) Functional Activities, Ea 15 (03/30/21 ) Exercise Therap, Ea 15 Min (03/30/21 ) Pt Eval Moderate Complexity (03/30/21 ) Amlodipine Tablet (Norvasc Tablet) (03/31/21 09:00) Apixaban Tablet (Eliquis Tablet) (03/30/21 21:00) Aspirin Enteric Coated Tablet (Ecotrin T (03/31/21 09:00) Hydrocodone/Apap 5/325 Tablet (Lortab 5 (03/30/21 16:30) Metoprolol Succinate (Xl) Tab (Toprol Xl (03/31/21 09:00) Rosuvastatin Tablet (Crestor Tablet) (03/30/21 21:00) Loratadine Tablet (Claritin Tablet) (03/31/21 09:00) Cholecalciferol Capsule/Tablet (Vitamin (03/31/21 09:00) Finasteride Tablet (Proscar Tablet) (03/30/21 21:00) Magnesium Oxide Tablet (Mag Ox Tablet) (03/30/21 21:00) Pantoprazole Tablet (Protonix Tablet) (03/30/21 21:00) Consult Physician (03/30/21 16:35) Cbc And Manual Diff (03/30/21 16:36) Lactic Acid Analyzer (03/30/21 16:36) Blood Culture (03/30/21 16:36) Chest Pa/Lat (2 View) (03/30/21 16:36) Covid 19 Inhouse Test (03/30/21 16:36) Ceftriaxone 1 Gm Pre-Mix (Rocephin 1 Gm (03/30/21 16:45) Azithromycin Injection (Zithromax Inject (03/30/21 16:45) Azithromycin Injection (Zithromax Inject (03/31/21 09:00) Lactobacillus Acidophilus Cap (Acidophil (03/30/21 18:00) Incentive Spirometry Initial (03/30/21 17:13) Incentive Spirometry (Nursing) Q2H (03/30/21 17:13) Incentive Spirometry (Nursing) Q2H (03/30/21 17:13) Ua Culture If Indicated (03/30/21 18:28) Comprehensive Metabolic Panel (03/30/21 18:09) Urine Culture (03/30/21 18:10) Procalcitonin (Pct) (03/31/21 06:00) Smear For Path Review (03/31/21 06:00) LDH (03/31/21 06:00) Amlodipine Tablet (Norvasc Tablet) (03/31/21 21:00) Cholecalciferol Capsule/Tablet (Vitamin (04/01/21 09:00) Rosuvastatin Tablet (Crestor Tablet) (03/31/21 21:00) Oxycodone Immediate Rel Tablet (Oxyir Ta (03/31/21 11:15) Patient Visit (03/31/21 ) Functional Activities, Ea 15 (03/31/21 ) Exercise Therap, Ea 15 Min (03/31/21 ) Wheelchair Mgmt/Propulsn 15min (03/31/21 ) Gait Training, Ea 15 Min (03/31/21 ) Azithromycin Tablet (Zithromax Tablet) (04/02/21 09:00) Apixaban Tablet (Eliquis Tablet) (04/06/21 21:00) Patient Visit (04/01/21 ) Gait Training, Ea 15 Min (04/01/21 ) Exercise Therap, Ea 15 Min (04/01/21 ) Functional Activities, Ea 15 (04/01/21 ) Rehab Nursing Orders: Ongoing Assess. of Cognitive Status, Ongoing Assess. of Function Status, Bladder Management, Bladder Scan, Bladder Training, Bowel Management, Bowel Training, Disease Management & Educaiton, DVT Prophylaxis, Fall Prevention, Fluid/Electrolyte/Nutrition Mgmt, Infection Prevention, Medication Management & Education, Management of Risks & Complications, Management of Skin Intergrity, Nutrition Management, Pain Management, Patient/Family Support, Safety Management, Weight Bearing Precaution, Wound Celia gement Intensity of Therapy to be met Patient to be seen: Min.3h per day/5 of 7d PT IPOC Problem List: Activity Tolerance, Functional Strength, Safety, Balance, Gait, Transfer, Bed Mobility, ROM Treatment Plan: Continue Plan of Care Bed Mobility, Education, Functional Activity Nena, Functional Strength, Gait, Safety, Therapeutic Exercise, Transfers Treatment Duration: Apr 20, 2021 Frequency: At least 5 of 7 days/Wk (IRF) Estimated Hrs Per Day: 1.5 hours per day OT IPOC Problems: Decreased Activ Tolerance, Decreased UE Strength, Impaired Funct Balance, Impaired I ADL's, Impaired Self-Care Skills OT Treatment, Training and Edu: Yes Plan of Care: ADL Retraining, Functional Mobility, Group Exercise/Act as Ind, UE Funct Exercise/Act Treatment Duration: Apr 17, 2021 Frequency: At least 5 of 7 days/Wk (IRF) Estimated Hrs Per Day: 1.[address] IPOC Speech Therapy Treatment Plan: Discontinue ST Treatment Duration: Mar 30, 2021 Frequency: 1 time per week Estimated Hrs Per Day: .5 hour per day Dietitian Assistant/Case Mgmt Dietitian Assistant/Case Managemen: Discharge Planning Dietitian/Fly Rail Operator Dietitian/Fly Rail Operator to monitor nutritional status and make changes and/or recommendations as needed and work with speech pathology on dietary upgrades as the occur. Physician IPOC Medical Issues being managed closely and that require the 24 hour availability of a physician: Recent catastrophic orthopedic fractures with abrupt onset of fever on admission requiring empiric antibiotics and work-up will be at high risk for decompensation Medical Issues: Bowel/Bladder Function, DVT Prophylaxis, Falls Precautions, Fluid/Electrolyte/Nutrition Balance, Infection Protection, Pain Management, Weight Bearing Precautions, Wound Care Brief Synthesis of Preadmission Screen, Post-Admission Evaluation, and Therapy Evaluations: PT and OT will focus on ambulatory processes with use of assistive devices and increasing ADLs in order to return back home to family Medical Prognosis: Good Anticipated Length of Stay: 10 days CLAUDIA KELLY DO Apr 01, 2021 05:45
[2021-04-01] MEDS: ACETAMINOPHEN 325 MG TABLET PO PRN ×2 (06:39→20:23)
[2021-04-01 07:25] VITALS: BP 116/78
[2021-04-01] MEDS: ASPIRIN E.C. 81 MG (ECOTRIN) TAB PO SCH (08:37)
[2021-04-01] MEDS: VITAMIN D3 25 MCG (1,000 UNITS) TABLET PO SCH (08:37)
[2021-04-01] MEDS: LORATADINE (CLARITIN) 10 MG TAB PO SCH (08:37)
[2021-04-01] MEDS: LACTOBACILLUS ACIDOPHILUS (PROBIOTIC) CAPSULE PO SCH ×3 (08:38→17:11)
[2021-04-01] MEDS: APIXABAN 5 MG (ELIQUIS) TABLET PO SCH ×2 (08:38→21:39)
[2021-04-01] MEDS: PANTOPRAZOLE 20 MG TABLET (PROTONIX) PO SCH ×2 (08:38→21:40)
--- NOTE | 2021-04-01 08:45 | Progress Note ---
Subjective Review of Systems Musculoskeletal: shoulder pain, arm pain, back pain, leg pain All Other Systems Reviewed All Other Systems Reviewed: Yes Objective Exam Vital Signs Vital Signs Date Time Temp Pulse Resp B/P (MAP) Pulse Ox O2 Delivery O2 Flow Rate FiO2 04/01/21 07:25 36.4 97 16 116/78 (91) 95 Room Air 03/31/21 21:48 97 Room Air 03/31/21 20:00 37.2 101 20 95/64 (74) 97 Room Air 03/31/21 09:00 97 Room Air I & O 04/01/21 07:00 Intake Total 300 ml Balance 300 ml General Appearance: No Apparent Distress, WD/WN Eyes: Bilateral Eye Normal Inspection, Bilateral Eye PERRL HEENT: PERRL/EOMI, Normal ENT Inspection, Pharynx Normal Neck: Full Range of Motion, Normal Inspection, Non Tender, Supple, Carotid Bruit Respiratory: Chest Non Tender, Lungs Clear, Normal Breath Sounds, No Accessory Muscle Use, No Respiratory Distress Cardiovascular: Regular Rate, Rhythm, No Edema, No Gallop, No JVD, No Murmur, Normal Peripheral Pulses Gastrointestinal: Normal Bowel Sounds, No Organomegaly, No Pulsatile Mass, Non Tender, Soft Back: Normal Inspection, No CVA Tenderness, No Vertebral Tenderness Extremity: Normal Capillary Refill, Normal Inspection, Normal Range of Motion (Except lower extremities due to pain), Non Tender, No Calf Tenderness, No Pedal Edema Neurologic/Psychiatric: Alert, Oriented x3, No Motor/Sensory Deficits, Normal Mood/Affect Skin: Normal Color, Warm/Dry Lymphatic: No Adenopathy Results Lab Microbiology 03/30/21 Urine Culture - Preliminary, Resulted Enterococcus faecalis 03/30/21 Blood Culture - Preliminary, Resulted No growth ANABELLA SHARP MD Apr 01, 2021 08:45
[2021-04-01] MEDS: DOCUSATE SODIUM 100 MG (COLACE) CAP PO SCH ×2 (08:46→21:41)
[2021-04-01] MEDS: polyethylene glycoL POWDER 17 GM (MIRALAX) PACK PO SCH ×2 (08:47→21:43)
[2021-04-01] MEDS: SENNA W/DOCUSATE (SENOKOT S) TABLET PO SCH ×2 (08:47→21:43)
[2021-04-01] MEDS: cefTRIAXone 1 GM PRE-MIX 50 ML IV SCH (08:52)
[2021-04-01] MEDS: MAGNESIUM OXIDE (MAG-OX)400 MG TAB PO SCH ×2 (08:59→21:39)
--- NOTE | 2021-04-01 09:39 | Occupational Ther Daily Note ---
OT Current Status-Daily Note Subjective Pt up in recliner, agreeable to OT Tx. Mental Status/Objective Patient Orientation: Normal For Age ADL-Treatment Therapy Code Descriptions/Definitions Functional [place] Measure: 0=Not Assessed/NA 4=Minimal Assistance 1=Total Assistance 5=Supervision or Setup 2=Maximal Assistance 6=Modified [place] 3=Moderate Assistance 7=Complete IndependenceSCALE: Activities may be completed with or without assistive devices. 8-Nydpkyiaps-thwmroz completes the activity by him/herself with no assistance from a helper. 5-Set-up or Clean-up Assistance-helper sets up or cleans up; patient completes activity. [place] assists only prior to or following the activity. 4-Supervision or Touching Assistance-helper provides verbal cues and/or touching/steadying and/or contact guard assistance as patient completes activity. Assistance may be provided throughout the activity or intermittently. 3-Partial/Moderate Assistance-helper does LESS THAN HALF the effort. [place] lifts, holds or supports trunk or limbs, but provides less than half the effort. 2-Substantial/Maximal Assistance-helper does MORE THAN HALF the effort. [place] lifts or holds trunk or limbs and provides more than half the effort. 4-Ldtfudpnb-aqzxhs does ALL the effort. Patient does none of the effort to complete the activity. Or, the assistance of 2 or more helpers is required for the patient to complete the activity. If activity was not attempted, code reason: 7-Patient Refused. 9-Not Applicable-not attempted and the patient did not perform the activity before the current illness, exacerbation or injury. 10-Not Attempted due to Environmental Limitations-(lack of equipment, weather restraints, etc.). 88-Not Attempted due to Medical Conditions or Safety Concerns. Eating (QC): 6 (Per pt report.) Oral Hygiene (QC): 6 (Per clincial judgment, IND seated at sink.) Shower/Bathe Self (QC): 5 (set up with shower at NC, using LH sponge as needed.) Upper Body Dressing (QC): 5 Lower Body Dressing (QC): 3 (Min A threading LEs into pants using AE.) On/Off Footwear: 3 (Mod A, pt able to doff RLE gripper sock, and able to slip on R shoe, assist to tie shoe. Assist doffing/donning LLE gripper sock.) Toileting Hygiene (QC): 4 (Per clinical judgment and pt report, pt able to manage clothing and hygiene.) Other Treatment Pt seated in recliner, used FWW to transfer from recliner to /c, [facility]. Pt taken into bathroom, then completed pivot transfer to NC using GBs. Pt doffed clothes, using dental equipment installer and servicer for footwear, min A doffing L sock. Pt began shower. OT/PT cotreat due to skill of 2 clinicians required which a rehabilitation engineer could not perform in order to coordinate UE/LEs, decrease fall risk, and due to pt's limitations in strength, mobility, NWB status LLE, and endurance. OT focused on UE placement, cues for sequencing and safety, ADLs, PT focused on LE placement, gross overall movement and mobility/transfers. Pt completed shower, then dressed as outlined above. Pt taken to therapy gym, performing functional transfers and mobility in parallel bars, hopping several steps using FWW, and bed mobility. Pt educated on techniques in order to maintain NWB LLE. Pt returned to room, transferred to recliner post tx, call light in reach and al needs met. Please refer to PT note for QC scores associated with mobility/transfers. Education OT Patient Education: Correct positioning, Energy conservation, Modified ADL techniques, Progress toward Goal/Update tx plan, Purpose of tx/functional activities, Rehab process, Use of adapted equipment Teaching Recipient: Patient Teaching Methods: Discussion Response to Teaching: Verbalize Understanding OT Short Term Goals Short Term Goals Time Frame: Apr 10, 2021 Shower/bathe self: 4 Lower body dressin Putting on/taking off footwear: 4 OT Shelter Goals Shelter Goals Time Frame: Apr 17, 2021 Eating (QC): 6 Oral Hygiene (QC): 6 Toileting Hygiene (QC): 6 Shower/Bathe Self (QC): 5 Upper Body Dressing (QC): 5 Lower Body Dressing (QC): 5 On/Off Footwear (QC): 5 Additional Goals: 1-Demonstrate ADL Tasks, 2-Verbalize Understanding, 3- ImproveStrength/Nena 1=Demonstrate adherence to instructed precautions during ADL tasks. 2=Patient will verbalize/demonstrate understanding of assistive devices/modifications for ADL. 3=Patient will improve strength/tolerance for activity to enable patient to perform ADL's. OT Education/Plan Problem List/Assessment Assessment: Decreased Activ Tolerance, Decreased UE Strength, Impaired Funct Balance, Impaired I ADL's, Impaired Self-Care Skills Discharge Recommendations Plan/Recommendations: Continue POC Equpiment Recommendations-D/C: Extended Bath Bench, Hip Kit Treatment Plan/Plan of Care Patient would benefit from OT for education, treatment and training to promote independence in ADL's, mobility, safety and/or upper extremity function for ADL's. Plan of Care: ADL Retraining, Functional Mobility, Group Exercise/Act as Ind, UE Funct Exercise/Act Treatment Duration: Apr 17, 2021 Frequency: At least 5 of 7 days/Wk (IRF) Estimated Hrs Per Day: 1.5 hours per day Rehab Potential: Fair Time/GCodes Start Time: 09:15 Stop Time: 10:15 Total Time Billed (hr/min): 60 Billed Treatment Time OT tx 15', Cotreat 45' 1, ADL 2 (30'), FA 2 (30') GUILLAUME ALMEIDA OT Apr 01, 2021 09:39
[2021-04-01] MEDS: AZITHROMYCIN INJECTION 250 MG in NS (IVPB) 250 ML IV SCH (10:26)
--- NOTE | 2021-04-01 11:06 | Physical Therapy Daily Note ---
PT Daily Note-Current Subjective Pt. agrees to Rx, states he feels so much better after shower with OT superv. Feeling better about w/c and gait training Pain Location: No Pain Reported Mental Status Patient Orientation: Normal For Age Transfers SCALE: Activities may be completed with or without assistive devices. 7-Sykemapczi-tbfmxua completes the activity by him/herself with no assistance from a helper. 5-Set-up or Clean-up Assistance-helper sets up or cleans up; patient completes activity. [place] assists only prior to or following the activity. 4-Supervision or Touching Assistance-helper provides verbal cues and/or touching/steadying and/or contact guard assistance as patient completes activity. Assistance may be provided throughout the activity or intermittently. 3-Partial/Moderate Assistance-helper does LESS THAN HALF the effort. [place] lifts, holds or supports trunk or limbs, but provides less than half the effort. 2-Substantial/Maximal Assistance-helper does MORE THAN HALF the effort. [place] lifts or holds trunk or limbs and provides more than half the effort. 8-Modazkrjh-kytvzo does ALL the effort. Patient does none of the effort to complete the activity. Or, the assistance of 2 or more helpers is required for the patient to complete the activity. If activity was not attempted, code reason: 7-Patient Refused. 9-Not Applicable-not attempted and the patient did not perform the activity before the current illness, exacerbation or injury. 10-Not Attempted due to Environmental Limitations-(lack of equipment, weather restraints, etc.). 88-Not Attempted due to Medical Conditions or Safety Concerns. Roll Left & Right (QC): 3 Sit to Lying (QC): 3 Lying to Sitting/Side of Bed(Q: 3 Sit to Stand (QC): 4 Chair/Wwd-gw-Fjobx Xfer(QC): 4 Toilet Transfer (QC): 4 still navigating rolling to side to sit and sit to sup , SPTs with absolute NWB is a challenge Weight Bearing Left Lower Extremity: Left Non Weight Bearing Gait Training Does the Patient Walk?: Yes Walk 10 feet (QC): 4 Gait Persons Needed: 1 Gait Assistive Device: FWW pt. ambulated 10 ft ,5 ft FWW NWB with shoe on right foot which helped co nsiderably with NWB, pt keeping L Knee flexed and off floor.. Pt also walked in // bars 6 ft x 2 with min assist, w/c follow up all gait trials. pt. fatigues quickly Wheelchair Training Does the Pt Use a Wheelchair?: Yes Wheel 50 ft with 2 turns (QC): 5 Wheel 150 ft (QC): 5 Type of Wheelchair: Manual pt. improving at removing leg rest and braking etc. Exercises Supine Ex: Ankle pumps, Quad Set, Rolling, Glut sets, Heel Slides (assisted), Short Arc Quads, Straight leg raise (assisted) Supine Reps: 15 Seated Therapy Exercises: Ankle pumps, Sit to stand, Long arc quads Seated Reps: 15 Treatments co RX OT PT for TRFs, funct mob and gait for coordin of U&L extrem and trunk for safety requiring 2 skilled clinicians Assessment Current Status: Good Progress PT Short Term Goals Short Term Goals Time Frame: Apr 06, 2021 Roll Left & Right: 4 (SBA) Sit to lyin (CGA) Lying to sitting on side of be: 3 ([place]) Sit to stand: 4 (SBA) Chair/van-pc-estvw transfer: 4 (SBA) Walk 10 feet: 4 PT Solar Sales Advisor Goals Solar Sales Advisor Goals PT Solar Sales Advisor Goals Time Frame: Apr 20, 2021 Roll Left & Right (QC): 5 Sit to Lying (QC): 4 Lying-Sitting on Side/Bed(QC): 4 Sit to Stand (QC): 4 Chair/Lzn-yq-Xaiww Xfer(QC): 4 Toilet Transfer (QC): 4 Car Transfer (QC): 4 Does the Patient Walk: Yes Walk 10 feet (QC): 4 Walk 50ft with 2 Turns (QC): 4 Walk 150 ft (QC): 88 Walking 10ft on Uneven Surface: 4 1 Step (curb) (QC): 4 4 Steps (QC): 88 12 Steps (QC): 88 Picking up an Object (QC): 6 Wheel 50 feet with 2 turns (QC: 6 Wheel 150 feet: 6 PT Plan Treatment/Plan Treatment Plan: Continue Plan of Care Treatment Plan: Bed Mobility, Education, Functional Activity Nena, Functional Strength, Gait, Safety, Therapeutic Exercise, Transfers Treatment Duration: Apr 20, 2021 Frequency: At least 5 of 7 days/Wk (IRF) Estimated Hrs Per Day: 1.5 hours per day Patient and/or Family Agrees t: Yes Safety Risks/Education Patient Education: Gait Training, Transfer Techniques, Reviewed Precautions, Correct Positioning, W/C Management, Disease Process, Safety Issues Teaching Recipient: Patient Teaching Methods: Demonstration, Discussion Response to Teaching: Verbalize Understanding, Return Demonstration, Reinforcement Needed Time/GCodes Time In: 930 Time Out: 1015 Total Billed Treatment Time: 45 Total Billed Treatment 1,EX15m,GT15m,FA15m ZENY AIKEN PTA Apr 01, 2021 11:06
--- NOTE | 2021-04-01 13:37 | Occupational Ther Daily Note ---
OT Current Status-Daily Note Subjective Pt seated in recliner, agreeable to OT Tx. Pt's in room. Mental Status/Objective Patient Orientation: Normal For Age ADL-Treatment Therapy Code Descriptions/Definitions Functional [place] Measure: 0=Not Assessed/NA 4=Minimal Assistance 1=Total Assistance 5=Supervision or Setup 2=Maximal Assistance 6=Modified [place] 3=Moderate Assistance 7=Complete IndependenceSCALE: Activities may be completed with or without assistive devices. 0-Pfzinrsnjd-fottvsm completes the activity by him/herself with no assistance from a helper. 5-Set-up or Clean-up Assistance-helper sets up or cleans up; patient completes activity. [place] assists only prior to or following the activity. 4-Supervision or Touching Assistance-helper provides verbal cues and/or touching/steadying and/or contact guard assistance as patient completes activity. Assistance may be provided throughout the activity or intermittently. 3-Partial/Moderate Assistance-helper does LESS THAN HALF the effort. [place] lifts, holds or supports trunk or limbs, but provides less than half the effort. 2-Substantial/Maximal Assistance-helper does MORE THAN HALF the effort. [place] lifts or holds trunk or limbs and provides more than half the effort. 5-[place]segfxnmn-v[place] does ALL the effort. Patient does none of the effort to complete the activity. Or, the assistance of 2 or more helpers is required for the patient to complete the activity. If activity was not attempted, code reason: 7-Patient Refused. 9-Not Applicable-not attempted and the patient did not perform the activity before the current illness, exacerbation or injury. 10-Not Attempted due to Environmental Limitations-(lack of equipment, weather restraints, etc.). 88-Not Attempted due to Medical Conditions or Safety Concerns. On/Off Footwear: 5 (set up, pt able to don/dof L gripper sock using AE. Donned R shoe) Other Treatment Pt up in recliner, agreeable to OT Tx. Pt educated on AE for LE dressing. He used a sock aide and groundskeeper porter in order to don LLE gripper sock. OT replaced laces on pt's shoe with elastic laces. Pt then able to don/doff R shoe after set up. Post tx, pt in recliner, call light in reach and all needs met. Education OT Patient Education: Correct positioning, Energy conservation, Exercise program, Modified ADL techniques, Progress toward Goal/Update tx plan, Purpose of tx/functional activities, Rehab process, Safety issues Teaching Recipient: Patient Teaching Methods: Discussion Response to Teaching: Verbalize Understanding OT Short Term Goals Short Term Goals Time Frame: Apr 10, 2021 Shower/bathe self: 4 Lower body dressin Putting on/taking off footwear: 4 OT [place] Goals [place] Goals Time Frame: Apr 17, 2021 Eating (QC): 6 Oral Hygiene (QC): 6 Toileting Hygiene (QC): 6 Shower/Bathe Self (QC): 5 Upper Body Dressing (QC): 5 Lower Body Dressing (QC): 5 On/Off Footwear (QC): 5 Additional Goals: 1-Demonstrate ADL Tasks, 2-Verbalize Understanding, 3- ImproveStrength/Nena 1=Demonstrate adherence to instructed precautions during ADL tasks. 2=Patient will verbalize/demonstrate understanding of assistive devices/modifications for ADL. 3=Patient will improve strength/tolerance for activity to enable patient to perform ADL's. OT Education/Plan Problem List/Assessment Assessment: Decreased Activ Tolerance, Decreased UE Strength, Impaired Funct Balance, Impaired I ADL's, Impaired Self-Care Skills Discharge Recommendations Plan/Recommendations: Continue POC Treatment Plan/Plan of Care Patient would benefit from OT for education, treatment and training to promote independence in ADL's, mobility, safety and/or upper extremity function for ADL's. Plan of Care: ADL Retraining, Functional Mobility, Group Exercise/Act as Ind, UE Funct Exercise/Act Treatment Duration: Apr 17, 2021 Frequency: At least 5 of 7 days/Wk (IRF) Estimated Hrs Per Day: 1.5 hours per day Rehab Potential: Fair Time/GCodes Start Time: 13:00 Stop Time: 13:30 Total Time Billed (hr/min): 30 Billed Treatment Time 1, ADL 2 GUILLAUME ALMEIDA OT Apr 01, 2021 13:37
--- NOTE | 2021-04-01 14:35 | Physical Therapy Daily Note ---
PT Daily Note-Current Subjective Pt. agrees to Rx. present Pain Numeric Pain Scale: 4 Location: No Pain Reported, Left Location Body Site: Pelvic Pain Description: Sharp Mental Status Patient Orientation: Normal For Age Transfers SCALE: Activities may be completed with or without assistive devices. 6-Szvlxkoaye-njgetps completes the activity by him/herself with no assistance from a helper. 5-Set-up or Clean-up Assistance-helper sets up or cleans up; patient completes activity. [place] assists only prior to or following the activity. 4-Supervision or Touching Assistance-helper provides verbal cues and/or touching/steadying and/or contact guard assistance as patient completes activity. Assistance may be provided throughout the activity or intermittently. 3-Partial/Moderate Assistance-helper does LESS THAN HALF the effort. [place] lifts, holds or supports trunk or limbs, but provides less than half the effort. 2-Substantial/Maximal Assistance-helper does MORE THAN HALF the effort. [place] lifts or holds trunk or limbs and provides more than half the effort. 9-Gamdgidor-xbyagn does ALL the effort. Patient does none of the effort to complete the activity. Or, the assistance of 2 or more helpers is required for the patient to complete the activity. If activity was not attempted, code reason: 7-Patient Refused. 9-Not Applicable-not attempted and the patient did not perform the activity before the current illness, exacerbation or injury. 10-Not Attempted due to Environmental Limitations-(lack of equipment, weather restraints, etc.). 88-Not Attempted due to Medical Conditions or Safety Concerns. SPTs w/c to mat table to w/c to recliner CGA and instruction Weight Bearing Left Lower Extremity: Left Non Weight Bearing Gait Training Does the Patient Walk?: Yes Walk 10 feet (QC): 4 Gait Persons Needed: 1 Gait Assistive Device: FWW pt. needs instruction to maintain NWB and move in efficient ways Wheelchair Training Does the Pt Use a Wheelchair?: Yes Wheel 50 ft with 2 turns (QC): 6 Wheel 150 ft (QC): 6 Treatments pt. in bed after Rx, present , goode at hand Assessment Current Status: Good Progress pt. very fatigued, asks to rest in bed after Rx PT Short Term Goals Short Term Goals Time Frame: Apr 06, 2021 Roll Left & Right: 4 (SBA) Sit to lyin (CGA) Lying to sitting on side of be: 3 (Peyton) Sit to stand: 4 (SBA) Chair/ckw-hp-vhyrz transfer: 4 (SBA) Walk 10 feet: 4 PT Tie Inspector Goals Group Home Goals PT Group Home Goals Time Frame: Apr 20, 2021 Roll Left & Right (QC): 5 Sit to Lying (QC): 4 Lying-Sitting on Side/Bed(QC): 4 Sit to Stand (QC): 4 Chair/Kam-dv-Agbhi Xfer(QC): 4 Toilet Transfer (QC): 4 Car Transfer (QC): 4 Does the Patient Walk: Yes Walk 10 feet (QC): 4 Walk 50ft with 2 Turns (QC): 4 Walk 150 ft (QC): 88 Walking 10ft on Uneven Surface: 4 1 Step (curb) (QC): 4 4 Steps (QC): 88 12 Steps (QC): 88 Picking up an Object (QC): 6 Wheel 50 feet with 2 turns (QC: 6 Wheel 150 feet: 6 PT Plan Treatment/Plan Treatment Plan: Continue Plan of Care Treatment Plan: Bed Mobility, Education, Functional Activity Nena, Functional Strength, Gait, Safety, Therapeutic Exercise, Transfers Treatment Duration: Apr 20, 2021 Frequency: At least 5 of 7 days/Wk (IRF) Estimated Hrs Per Day: 1.5 hours per day Patient and/or Family Agrees t: Yes Safety Risks/Education Patient Education: Gait Training, Transfer Techniques, Correct Positioning, W/C Management, Disease Process, Safety Issues Teaching Recipient: Patient Teaching Methods: Demonstration, Discussion Response to Teaching: Verbalize Understanding, Return Demonstration, Reinforcement Needed Time/GCodes Time In: 1345 Time Out: 1430 Total Billed Treatment Time: 45 Total Billed Treatment 1,GT15m,FA30m ZENY AIKEN FROZEN FOOD DEPARTMENT MANAGER Apr 01, 2021 14:35
[2021-04-01 20:00] VITALS: BP 120/68
[2021-04-01] MEDS: FINASTERIDE (PROSCAR) 5 MG TAB PO SCH (21:40)
[2021-04-01] MEDS: amLODIPine 5 MG (NORVASC) TAB PO SCH (21:40)
[2021-04-01] MEDS: ROSUVASTATIN 20 MG (CRESTOR) TABLET PO SCH (21:40)
--- NOTE | 2021-04-02 06:01 | PM&R Progress Note ---
Subjective HPI/CC On Admission Date Seen by Provider: Apr 02, 2021 Time Seen by Provider: 12:00 Subjective/Events-last exam 04/02/2021: Pt doing well Had a very low grade fever once Bowels are moving Taking only Tylenol Checked meds and labs 04/01/2021: Pt doing well Bowels moved this morning No complaints No fever Norvasc held due to BP of 95/54 Zithromax and Rocephin maintained empirically 03/31/2021: Pt doing well Still remains tachycardic No fever Procalcitonin of 0.23 Could be a bronchial component since CXR and urine were both negative Overall doing much better at bedside Review of Systems General: Fatigue, Malaise Musculoskeletal: leg pain Focused Exam Lactate Level Objective Exam Vital Signs Vital Signs Date Time Temp Pulse Resp B/P (MAP) Pulse Ox O2 Delivery O2 Flow Rate FiO2 04/02/21 20:45 Room Air 04/02/21 19:37 37.2 91 20 110/57 (74) 97 Capillary Refill : General Appearance: No Apparent Distress, WD/WN HEENT: PERRL/EOMI, Normal ENT Inspection, Pharynx Normal Neck: Full Range of Motion, Normal Inspection, Non Tender, Supple, Carotid Bruit Respiratory: Chest Non Tender, Lungs Clear, Normal Breath Sounds, No Accessory Muscle Use, No Respiratory Distress Cardiovascular: Regular Rate, Rhythm, No Edema, No Gallop, No JVD, No Murmur, Normal Peripheral Pulses Gastrointestinal: Normal Bowel Sounds, No Organomegaly, No Pulsatile Mass, Non Tender, Soft Back: Normal Inspection, No CVA Tenderness, No Vertebral Tenderness Extremity: Normal Capillary Refill, Normal Inspection, Normal Range of Motion (Except lower extremities due to pain), Non Tender, No Calf Tenderness, No Pedal Edema Neurologic/Psychiatric: Alert, Oriented x3, No Motor/Sensory Deficits, Normal Mood/Affect Skin: Normal Color, Warm/Dry Lymphatic: No Adenopathy Results/Procedures Lab Patient resulted labs reviewed. FIM Transfers Therapy Code Descriptions/Definitions Functional [place] Measure: 0=Not Assessed/NA 4=Minimal Assistance 1=Total Assistance 5=Supervision or Setup 2=Maximal Assistance 6=Modified [place] 3=Moderate Assistance 7=Complete IndependenceSCALE: Activities may be completed with or without assistive devices. 4-Ixslpwamfa-ktfnahe completes the activity by him/herself with no assistance from a helper. 5-Set-up or Clean-up Assistance-helper sets up or cleans up; patient completes activity. [place] assists only prior to or following the activity. 4-Supervision or Touching Assistance-helper provides verbal cues and/or touching/steadying and/or contact guard assistance as patient completes activ ity. Assistance may be provided throughout the activity or intermittently. 3-Partial/Moderate Assistance-helper does LESS THAN HALF the effort. [place] lifts, holds or supports trunk or limbs, but provides less than half the effort. 2-Substantial/Maximal Assistance-helper does MORE THAN HALF the effort. [place] lifts or holds trunk or limbs and provides more than half the effort. 7-Ljwnpaogs-xcovwc does ALL the effort. Patient does none of the effort to complete the activity. Or, the assistance of 2 or more helpers is required for the patient to complete the activity. If activity was not attempted, code reason: 7-Patient Refused. 9-Not Applicable-not attempted and the patient did not perform the activity before the current illness, exacerbation or injury. 10-Not Attempted due to Environmental Limitations-(lack of equipment, weather restraints, etc.). 88-Not Attempted due to Medical Conditions or Safety Concerns. Roll Left to Right (QC): 3 Sit to Lying (QC): 3 Sit to Stand (QC): 4 Chair/Ejr-ji-Gvpzl Xfer(QC): 4 Car Transfer (QC): 3 Gait Training Does the Patient Walk?: Yes Walk 10 feet (QC): 4 Walk 50 ft with 2 Turns(QC): 88 Walk 150 ft (QC): 88 Walking 10ft/uneven surface-QC: 88 Gait Persons Needed: 1 Gait Assistive Device: FWW Wheelchair Training Does the Pt Use a Wheelchair?: Yes Distance: 150' Wheel 50 ft with 2 turns (QC): 6 Wheel 150 ft (QC): 6 Type of Wheelchair: Manual Stair Training 1 Step (curb) (QC): 88 4 Steps (QC): 88 12 Steps (QC): 88 Balance Picking up an Object (QC): 4 ADL-Treatment Eating (QC): 6 (Per pt report.) Oral Hygiene (QC): 6 (Per clincial judgment, IND seated at [facility] Shower/Bathe Self (QC): 5 (set up with shower at [place], using LH sponge as needed.) Upper Body Dressing (QC): 5 Lower Body Dressing (QC): 3 (Min A threading LEs into pants using AE.) On/Off Footwear (QC): 5 (set up, pt able to don/dof L gripper sock using AE. Donned R shoe) Toileting Hygiene (QC): 4 (Per clinical judgment and pt report, pt able to manage clothing and hygiene.) Assessment/Plan Assessment and Plan Assess & Plan/Chief Complaint Assessment: Fall from ladder Bilateral acetabular fractures Acute pulmonary embolism placed on anticoagulation History of atrial fibrillation status post ablation Fever of 102.5 upon admission to inpatient rehab unit negative except for white count of 19,000 placed on antibiotics empirically Abnormal complete blood count with differential will order peripheral smear and LDH Plan: Pain control Bowel regimen Supportive care 03/31/2021: Continue antibiotics Pain control 04/01/2021: Continue empiric antibiotics Supportive care 04/02/2021: Peripheral smear no pathological issue Monitor for fever (1) Closed left acetabular fracture Status: Acute CLAUDIA KELLY DO Apr 02, 2021 06:01
[2021-04-02] MEDS: ACETAMINOPHEN 325 MG TABLET PO PRN (06:21)
[2021-04-02 07:57] VITALS: BP 125/60
[2021-04-02] MEDS: MAGNESIUM OXIDE (MAG-OX)400 MG TAB PO SCH ×2 (08:00→20:53)
[2021-04-02] MEDS: LACTOBACILLUS ACIDOPHILUS (PROBIOTIC) CAPSULE PO SCH ×3 (08:00→18:11)
[2021-04-02] MEDS: ASPIRIN E.C. 81 MG (ECOTRIN) TAB PO SCH (08:00)
[2021-04-02] MEDS: AZITHROMYCIN 250 MG TAB (ZITHROMAX) PO SCH (08:00)
[2021-04-02] MEDS: APIXABAN 5 MG (ELIQUIS) TABLET PO SCH ×2 (08:00→20:52)
[2021-04-02] MEDS: VITAMIN D3 25 MCG (1,000 UNITS) TABLET PO SCH (08:00)
[2021-04-02] MEDS: DOCUSATE SODIUM 100 MG (COLACE) CAP PO SCH ×2 (08:00→20:53)
[2021-04-02] MEDS: PANTOPRAZOLE 20 MG TABLET (PROTONIX) PO SCH ×2 (08:00→20:53)
[2021-04-02] MEDS: LORATADINE (CLARITIN) 10 MG TAB PO SCH (08:00)
[2021-04-02] MEDS: cefTRIAXone 1 GM PRE-MIX 50 ML IV SCH (08:00)
[2021-04-02] MEDS: SENNA W/DOCUSATE (SENOKOT S) TABLET PO SCH ×2 (09:00→20:53)
[2021-04-02] MEDS: polyethylene glycoL POWDER 17 GM (MIRALAX) PACK PO SCH ×2 (09:00→22:01)
--- NOTE | 2021-04-02 10:01 | Physical Therapy Daily Note ---
PT Daily Note-Current Subjective Pt denies pain upon arrival. Pt agreeable and says he is doing better every day. Mental Status Patient Orientation: Person, Place, Situation Transfers SCALE: Activities may be completed with or without assistive devices. 4-Dnittdzwtt-jvvpxxg completes the activity by him/herself with no assistance from a helper. 5-Set-up or Clean-up Assistance-helper sets up or cleans up; patient completes activity. [place] assists only prior to or following the activity. 4-Supervision or Touching Assistance-helper provides verbal cues and/or touching/steadying and/or contact guard assistance as patient completes activity. Assistance may be provided throughout the activity or intermittently. 3-Partial/Moderate Assistance-helper does LESS THAN HALF the effort. [place] lifts, holds or supports trunk or limbs, but provides less than half the effort. 2-Substantial/Maximal Assistance-helper does MORE THAN HALF the effort. [place] lifts or holds trunk or limbs and provides more than half the effort. 4-Qgbuifmgy-kgmwmu does ALL the effort. Patient does none of the effort to complete the activity. Or, the assistance of 2 or more helpers is required for the patient to complete the activity. If activity was not attempted, code reason: 7-Patient Refused. 9-Not Applicable-not attempted and the patient did not perform the activity before the current illness, exacerbation or injury. 10-Not Attempted due to Environmental Limitations-(lack of equipment, weather restraints, etc.). 88-Not Attempted due to Medical Conditions or Safety Concerns. SPT with FWW and NWB (L) LE, CGA Weight Bearing Left Lower Extremity: Left Non Weight Bearing Gait Training Gait Assistive Device: FWW Pt amb in //bars 2 x 6ft with CGA, NWB (L) LE with tennis shoe on (R) foot. Pt amb in hallway with FWW and CGA, NWB (L) LE, close f/u of w/c 1 x15ft, 3 x20ft. Pt required short rest breaks between bouts. Wheelchair Training Type of Wheelchair: Manual Pt practiced w/c mobility 1 x 125ft, 1 x 500ft Exercises Supine Ex: Ankle pumps, Quad Set, Glut sets, Short Arc Quads Supine Reps: 20 Treatments co RX OT PT for TRFs, funct mob and gait for coordin of U&L extrem and trunk for safety requiring 2 skilled clinicians Assessment Current Status: Good Progress Pt able to maintain NWB status throughout treatment. Pt denied increased pain. Pt able to increase distance of ambulation. Good balance, good particpation throughout treatment. Pt richard well and in care of OT post therapy session. PT Short Term Goals Short Term Goals Time Frame: Apr 06, 2021 Roll Left & Right: 4 (SBA) Sit to lyin (CGA) Lying to sitting on side of be: 3 (Peyton) Sit to stand: 4 (SBA) Chair/cgg-ss-ehhsi transfer: 4 (SBA) Walk 10 feet: 4 PT Communications Department Head Goals Communications Department Head Goals PT Communications Department Head Goals Time Frame: Apr 20, 2021 Roll Left & Right (QC): 5 Sit to Lying (QC): 4 Lying-Sitting on Side/Bed(QC): 4 Sit to Stand (QC): 4 Chair/Mqd-dd-Gutyk Xfer(QC): 4 Toilet Transfer (QC): 4 Car Transfer (QC): 4 Does the Patient Walk: Yes Walk 10 feet (QC): 4 Walk 50ft with 2 Turns (QC): 4 Walk 150 ft (QC): 88 Walking 10ft on Uneven Surface: 4 1 Step (curb) (QC): 4 4 Steps (QC): 88 12 Steps (QC): 88 Picking up an Object (QC): 6 Wheel 50 feet with 2 turns (QC: 6 Wheel 150 feet: 6 PT Plan Treatment/Plan Treatment Plan: Continue Plan of Care Treatment Plan: Bed Mobility, Education, Functional Activity Nena, Functional Strength, Gait, Safety, Therapeutic Exercise, Transfers Treatment Duration: Apr 20, 2021 Frequency: At least 5 of 7 days/Wk (IRF) Estimated Hrs Per Day: 1.5 hours per day Patient and/or Family Agrees t: Yes Time/GCodes Time In: 900 Time Out: 1000 Total Billed Treatment Time: 60 Total Billed Treatment 1, gait 30', W/c mob 15', Ther ex 15' (Co treat with OT x 45', Total time 60') COURT BORJAS CPTA Apr 02, 2021 10:01
--- NOTE | 2021-04-02 10:18 | Occupational Ther Daily Note ---
OT Current Status-Daily Note Subjective Pt in recliner, agreeable to cotreat followed by OT tx. ADL-Treatment Therapy Code Descriptions/Definitions Functional [place] Measure: 0=Not Assessed/NA 4=Minimal Assistance 1=Total Assistance 5=Supervision or Setup 2=Maximal Assistance 6=Modified [place] 3=Moderate Assistance 7=Complete IndependenceSCALE: Activities may be completed with or without assistive devices. 9-Zaxgausvjf-izlqlje completes the activity by him/herself with no assistance from a helper. 5-Set-up or Clean-up Assistance-helper sets up or cleans up; patient completes activity. [place] assists only prior to or following the activity. 4-Supervision or Touching Assistance-helper provides verbal cues and/or touching/steadying and/or contact guard assistance as patient completes activity. Assistance may be provided throughout the activity or intermittently. 3-Partial/Moderate Assistance-helper does LESS THAN HALF the effort. [place] lifts, holds or supports trunk or limbs, but provides less than half the effort. 2-Substantial/Maximal Assistance-helper does MORE THAN HALF the effort. [place] lifts or holds trunk or limbs and provides more than half the effort. 1-Ddiylgmic-ydkzdm does ALL the effort. Patient does none of the effort to complete the activity. Or, the assistance of 2 or more helpers is required for the patient to complete the activity. If activity was not attempted, code reason: 7-Patient Refused. 9-Not Applicable-not attempted and the patient did not perform the activity before the current illness, exacerbation or injury. 10-Not Attempted due to Environmental Limitations-(lack of equipment, weather restraints, etc.). 88-Not Attempted due to Medical Conditions or Safety Concerns. On/Off Footwear: 3 (Assist with [employer]ose, pt able to don R shoe.) Other Treatment OT/PT cotreat due to skill of 2 clinicians required which a rehab liaison could not perform in order to coordinate UE/LEs, decrease fall risk, and due to pt's limitations in strength, mobility, NWB status LLE, and endurance. OT focused on UE placement, cues for sequencing and safety, ADLs, Pt in recliner, PT present. Footwear donned, then SPT to w/c. Pt taken to therapy gym, performed mobility in parallel bars, 2x6' CGA, NWB LLE. He then performed mobility in hallway using FWW, CGA with NWB LLE, close f/u of w/c 1x15', 3x20' with close w/c follow and short rest breaks between. Pt then performed w/c mobility 1x125' and 1x500'. Cotreat ended, OT tx continued. OT tx with focus on increasing BUE strength and activity tolerance in order to increase independence with ADLs and mobility. Pt completed nut/bolt block. Then placed 1" pegs into foam pegboard, alternating hands, 2 lb wrist weights. Arm bike performed, x15 mins, 20 Watt restistance. Pt propelled w/c back to his room, SPT using FWW to recliner. Post tx, pt in recliner, call light in reach and all needs met. Education OT Patient Education: Correct positioning, Energy conservation, Exercise program, Modified ADL techniques, Progress toward Goal/Update tx plan, Purpose of tx/functional activities, Rehab process Teaching Recipient: Patient Teaching Methods: Discussion Response to Teaching: Verbalize Understanding OT Short Term Goals Short Term Goals Time Frame: Apr 10, 2021 Shower/bathe self: 4 Lower body dressin Putting on/taking off footwear: 4 OT [facility] Goals Day Treatment Clinician/Art Therapist Goals Time Frame: Apr 17, 2021 Eating (QC): 6 Oral Hygiene (QC): 6 Toileting Hygiene (QC): 6 Shower/Bathe Self (QC): 5 Upper Body Dressing (QC): 5 Lower Body Dressing (QC): 5 On/Off Footwear (QC): 5 Additional Goals: 1-Demonstrate ADL Tasks, 2-Verbalize Understanding, 3- ImproveStrength/Nena 1=Demonstrate adherence to instructed precautions during ADL tasks. 2=Patient will verbalize/demonstrate understanding of assistive devices/modifications for ADL. 3=Patient will improve strength/tolerance for activity to enable patient to perform ADL's. OT Education/Plan Problem List/Assessment Assessment: Decreased Activ Tolerance, Decreased UE Strength, Impaired Funct Balance, Impaired I ADL's, Impaired Self-Care Skills Discharge Recommendations Plan/Recommendations: Continue POC Treatment Plan/Plan of Care Patient would benefit from OT for education, treatment and training to promote independence in ADL's, mobility, safety and/or upper extremity function for ADL's. Plan of Care: ADL Retraining, Functional Mobility, Group Exercise/Act as Ind, UE Funct Exercise/Act Treatment Duration: Apr 17, 2021 Frequency: At least 5 of 7 days/Wk (IRF) Estimated Hrs Per Day: 1.5 hours per day Rehab Potential: Fair Time/GCodes Start Time: 09:15 Stop Time: 10:45 Total Time Billed (hr/min): 90 Billed Treatment Time Cotreat x45', OT x45' 1, EX (15'), FA 5 (75') GUILLAUME ALMEIDA OT Apr 02, 2021 10:18
--- NOTE | 2021-04-02 15:12 | Physical Therapy Daily Note ---
PT Daily Note-Current Subjective Pt in recliner upon arrival, agrees to PT. Pt denies pain. Mental Status Patient Orientation: Person, Place, Situation Transfers SCALE: Activities may be completed with or without assistive devices. 2-Qyhavpdcvp-kbrqwxk completes the activity by him/herself with no assistance from a helper. 5-Set-up or Clean-up Assistance-helper sets up or cleans up; patient completes activity. [place] assists only prior to or following the activity. 4-Supervision or Touching Assistance-helper provides verbal cues and/or touching/steadying and/or contact guard assistance as patient completes activity. Assistance may be provided throughout the activity or intermittently. 3-Partial/Moderate Assistance-helper does LESS THAN HALF the effort. [place] lifts, holds or supports trunk or limbs, but provides less than half the effort. 2-Substantial/Maximal Assistance-helper does MORE THAN HALF the effort. [place] lifts or holds trunk or limbs and provides more than half the effort. 6-Cxvlhgbks-znfipm does ALL the effort. Patient does none of the effort to complete the activity. Or, the assistance of 2 or more helpers is required for the patient to complete the activity. If activity was not attempted, code reason: 7-Patient Refused. 9-Not Applicable-not attempted and the patient did not perform the activity before the current illness, exacerbation or injury. 10-Not Attempted due to Environmental Limitations-(lack of equipment, weather restraints, etc.). 88-Not Attempted due to Medical Conditions or Safety Concerns. Pt performs SPT with CGA and NWB (L) LE recliner <->w/c Weight Bearing Left Lower Extremity: Left Non Weight Bearing Gait Training Gait Assistive Device: FWW Pt amb with FWW and NWB (L) LE, close f/u of w/c 2 x 20ft with CGA Wheelchair Training Does the Pt Use a Wheelchair?: Yes Type of Wheelchair: Manual Pt practiced w/c 2 x 40ft Exercises Supine Ex: Ankle pumps, Quad Set, Glut sets, Short Arc Quads Supine Reps: 20 Treatments Pt back to bed with call light and all needs met. Assessment Current Status: Good Progress Pt is making good progress with functional mobility. Pt demonstrates safe technique during transfers, gait training and bed mobility. Pt is able to maintain NWB status. Pt resting with call light in reach. PT Short Term Goals Short Term Goals Time Frame: Apr 06, 2021 Roll Left & Right: 4 (SBA) Sit to lyin (CGA) Lying to sitting on side of be: 3 ([place]eyton) Sit to stand: 4 (SBA) Chair/npr-zn-kiuob transfer: 4 (SBA) Walk 10 feet: 4 PT Hand Cigar Maker Goals Hand Cigar Maker Goals PT [facility] Goals Time Frame: Apr 20, 2021 Roll Left & Right (QC): 5 Sit to Lying (QC): 4 Lying-Sitting on Side/Bed(QC): 4 Sit to Stand (QC): 4 Chair/Zzf-dm-Wngjr Xfer(QC): 4 Toilet Transfer (QC): 4 Car Transfer (QC): 4 Does the Patient Walk: Yes Walk 10 feet (QC): 4 Walk 50ft with 2 Turns (QC): 4 Walk 150 ft (QC): 88 Walking 10ft on Uneven Surface: 4 1 Step (curb) (QC): 4 4 Steps (QC): 88 12 Steps (QC): 88 Picking up an Object (QC): 6 Wheel 50 feet with 2 turns (QC: 6 Wheel 150 feet: 6 PT Plan Treatment/Plan Treatment Plan: Continue Plan of Care Treatment Plan: Bed Mobility, Education, Functional Activity Nena, Functional Strength, Gait, Safety, Therapeutic Exercise, Transfers Treatment Duration: Apr 20, 2021 Frequency: At least 5 of 7 days/Wk (IRF) Estimated Hrs Per Day: 1.5 hours per day Patient and/or Family Agrees t: Yes Time/GCodes Time In: 1300 Time Out: 1330 Total Billed Treatment Time: 30 Total Billed Treatment 1, Ther ex 15', gait 15' COURT BORJAS CPTA Apr 02, 2021 15:12
[2021-04-02 19:37] VITALS: BP 110/57
[2021-04-02] MEDS: ROSUVASTATIN 20 MG (CRESTOR) TABLET PO SCH (20:53)
[2021-04-02] MEDS: FINASTERIDE (PROSCAR) 5 MG TAB PO SCH (20:53)
[2021-04-02] MEDS: amLODIPine 5 MG (NORVASC) TAB PO SCH (20:53)
--- NOTE | 2021-04-03 05:44 | PM&R Progress Note ---
Subjective HPI/CC On Admission Date Seen by Provider: Apr 03, 2021 Time Seen by Provider: 10:00 Subjective/Events-last exam 04/03/2021: Pt doing well called and asked about repeat labs so will defer that to PCP Bowels re moving Tylenol ordered Incision looks good 04/02/2021: Pt doing well Had a very low grade fever once Bowels are moving Taking only Tylenol Checked meds and labs 04/01/2021: Pt doing well Bowels moved this morning No complaints No fever Norvasc held due to BP of 95/54 Zithromax and Rocephin maintained empirically 03/31/2021: Pt doing well Still remains tachycardic No fever Procalcitonin of 0.23 Could be a bronchial component since CXR and urine were both negative Overall doing much better at bedside Review of Systems Musculoskeletal: leg pain Objective Exam Vital Signs Vital Signs Date Time Temp Pulse Resp B/P (MAP) Pulse Ox O2 Delivery O2 Flow Rate FiO2 04/03/21 20:06 37.2 94 14 116/60 (78) 97 Room Air Capillary Refill : General Appearance: No Apparent Distress, WD/WN HEENT: PERRL/EOMI, Normal ENT Inspection, Pharynx Normal Neck: Full Range of Motion, Normal Inspection, Non Tender, Supple, Carotid Bruit Respiratory: Chest Non Tender, Lungs Clear, Normal Breath Sounds, No Accessory Muscle Use, No Respiratory Distress Cardiovascular: Regular Rate, Rhythm, No Edema, No Gallop, No JVD, No Murmur, Normal Peripheral Pulses Gastrointestinal: Normal Bowel Sounds, No Organomegaly, No Pulsatile Mass, Non Tender, Soft Back: Normal Inspection, No CVA Tenderness, No Vertebral Tenderness Extremity: Normal Capillary Refill, Normal Inspection, Normal Range of Motion (Except lower extremities due to pain), Non Tender, No Calf Tenderness, No Pedal Edema Neurologic/Psychiatric: Alert, Oriented x3, No Motor/Sensory Deficits, Normal Mood/Affect Skin: Normal Color, Warm/Dry Lymphatic: No Adenopathy Results/Procedures Lab Laboratory Tests 04/03/21 10:58 Patient resulted labs reviewed. FIM Transfers Therapy Code Descriptions/Definitions Functional [place] Measure: 0=Not Assessed/NA 4=Minimal Assistance 1=Total Assistance 5=Supervision or Setup 2=Maximal Assistance 6=Modified [place] 3=Moderate Assistance 7=Complete IndependenceSCALE: Activities may be completed with or without assistive devices. 2-Pcgoyhriev-zcblvhb completes the activity by him/herself with no assistance from a helper. 5-Set-up or Clean-up Assistance-helper sets up or cleans up; patient completes activity. [place] assists only prior to or following the activity. 4-Supervision or Touching Assistance-helper provides verbal cues and/or touching/steadying and/or contact guard assistance as patient completes activity. Assistance may be provided throughout the activity or intermittently. 3-Partial/Moderate Assistance-helper does LESS THAN HALF the effort. [place] lifts, holds or supports trunk or limbs, but provides less than half the effort. 2-Substantial/Maximal Assistance-helper does MORE THAN HALF the effort. [place] lifts or holds trunk or limbs and provides more than half the effort. 7-Rcnfmplie-jdwpyu does ALL the effort. Patient does none of the effort to complete the activity. Or, the assistance of 2 or more helpers is required for the patient to complete the activity. If activity was not attempted, code reason: 7-Patient Refused. 9-Not Applicable-not attempted and the patient did not perform the activity before the current illness, exacerbation or injury. 10-Not Attempted due to Environmental Limitations-(lack of equipment, weather restraints, etc.). 88-Not Attempted due to Medical Conditions or Safety Concerns. Roll Left to Right (QC): 3 Sit to Lying (QC): 3 Sit to Stand (QC): 4 Chair/Uxy-xu-Bmqdu Xfer(QC): 4 Car Transfer (QC): 3 Gait Training Does the Patient Walk?: Yes Walk 10 feet (QC): 4 Walk 50 ft with 2 Turns(QC): 88 Walk 150 ft (QC): 88 Walking 10ft/uneven surface-QC: 88 Gait Persons Needed: 1 Gait Assistive Device: FWW Wheelchair Training Does the Pt Use a Wheelchair?: Yes Distance: 150' Wheel 50 ft with 2 turns (QC): 6 Wheel 150 ft (QC): 6 Type of Wheelchair: Manual Stair Training 1 Step (curb) (QC): 88 4 Steps (QC): 88 12 Steps (QC): 88 Balance Picking up an Object (QC): 4 ADL-Treatment Eating (QC): 6 (Per pt report.) Oral Hygiene (QC): 6 (Per clincial judgment, IND seated at sink.) Shower/Bathe Self (QC): 5 (set up with shower at SC, using LH sponge as needed.) Upper Body Dressing (QC): 5 Lower Body Dressing (QC): 3 (Min A threading LEs into pants using AE.) On/Off Footwear (QC): 3 (Assist with TedHose, pt able to don R shoe.) Toileting Hygiene (QC): 4 (Per clinical judgment and pt report, pt able to manage clothing and hygiene.) Assessment/Plan Assessment and Plan Assess & Plan/Chief Complaint Assessment: Fall from ladder Bilateral acetabular fractures Acute pulmonary embolism placed on anticoagulation History of atrial fibrillation status post ablation Fever of 102.5 upon admission to inpatient rehab unit negative except for white count of 19,000 placed on antibiotics empirically Abnormal complete blood count with differential will order peripheral smear and LDH Thrombocytosis Plan: Pain control Bowel regimen Supportive care 03/31/2021: Continue antibiotics Pain control 04/01/2021: Continue empiric antibiotics Supportive care 04/02/2021: Peripheral smear no pathological issue Monitor for fever 04/03/2021: Repeat labs Follow thrombocytosis (1) Closed left acetabular fracture Status: Acute CLAUDIA KELLY DO Apr 03, 2021 05:44
[2021-04-03 07:25] VITALS: BP 117/67
[2021-04-03] MEDS: ACETAMINOPHEN 325 MG TABLET PO PRN (08:07)
[2021-04-03] MEDS: PANTOPRAZOLE 20 MG TABLET (PROTONIX) PO SCH ×2 (08:07→21:05)
[2021-04-03] MEDS: AZITHROMYCIN 250 MG TAB (ZITHROMAX) PO SCH (08:07)
[2021-04-03] MEDS: VITAMIN D3 25 MCG (1,000 UNITS) TABLET PO SCH (08:07)
[2021-04-03] MEDS: LORATADINE (CLARITIN) 10 MG TAB PO SCH (08:07)
[2021-04-03] MEDS: MAGNESIUM OXIDE (MAG-OX)400 MG TAB PO SCH ×2 (08:07→21:05)
[2021-04-03] MEDS: LACTOBACILLUS ACIDOPHILUS (PROBIOTIC) CAPSULE PO SCH ×3 (08:07→18:03)
[2021-04-03] MEDS: APIXABAN 5 MG (ELIQUIS) TABLET PO SCH ×2 (08:07→21:06)
[2021-04-03] MEDS: ASPIRIN E.C. 81 MG (ECOTRIN) TAB PO SCH (08:07)
[2021-04-03] MEDS: SENNA W/DOCUSATE (SENOKOT S) TABLET PO SCH ×2 (09:00→21:05)
[2021-04-03] MEDS: DOCUSATE SODIUM 100 MG (COLACE) CAP PO SCH ×2 (09:00→21:05)
[2021-04-03] MEDS: polyethylene glycoL POWDER 17 GM (MIRALAX) PACK PO SCH ×2 (09:00→19:33)
--- NOTE | 2021-04-03 09:02 | Occupational Ther Daily Note ---
OT Current Status-Daily Note Subjective Pt up in recliner, agreeable to OT Tx. Pt denies pain during session. Pt's IV began bleeding, nurse in to assess. Mental Status/Objective Patient Orientation: Normal For Age ADL-Treatment Therapy Code Descriptions/Definitions Functional [place] Measure: 0=Not Assessed/NA 4=Minimal Assistance 1=Total Assistance 5=Supervision or Setup 2=Maximal Assistance 6=Modified [place] 3=Moderate Assistance 7=Complete IndependenceSCALE: Activities may be completed with or without assistive devices. 9-Hdpaazhbly-cawxzro completes the activity by him/herself with no assistance from a helper. 5-Set-up or Clean-up Assistance-helper sets up or cleans up; patient completes activity. [place] assists only prior to or following the activity. 4-Supervision or Touching Assistance-helper provides verbal cues and/or touching/steadying and/or contact guard assistance as patient completes activity. Assistance may be provided throughout the activity or intermittently. 3-Partial/Moderate Assistance-helper does LESS THAN HALF the effort. [place] lifts, holds or supports trunk or limbs, but provides less than half the effort. 2-Substantial/Maximal Assistance-helper does MORE THAN HALF the effort. [place] lifts or holds trunk or limbs and provides more than half the effort. 2-Xrztygkzu-cykfsq does ALL the effort. Patient does none of the effort to complete the activity. Or, the assistance of 2 or more helpers is required for the patient to complete the activity. If activity was not attempted, code reason: 7-Patient Refused. 9-Not Applicable-not attempted and the patient did not perform the activity before the current illness, exacerbation or injury. 10-Not Attempted due to Environmental Limitations-(lack of equipment, weather restraints, etc.). 88-Not Attempted due to Medical Conditions or Safety Concerns. Eating (QC): 6 Oral Hygiene (QC): 6 Shower/Bathe Self (QC): 5 Upper Body Dressing (QC): 6 Lower Body Dressing (QC): 4 (CGA) On/Off Footwear: 3 (Mod A. Assist BLE tedhose, pt mele to don RLE shoe) Toileting Hygiene (QC): 4 (CGA) Other Treatment Pt seated in recliner, SPT from recliner to w/c using FWW, CGA. Pt taken into bathroom, transferred to UT, doffed clothes and completed shower. He transferred to w/c. OT noted pt's IV in R arm was slightly bloody, nurse in to assess IV and change surgical dressing. Pt then completed dressing using AE as needed, assistance provided with TEDhose. Pt and have indicated that plans to assist pt with LE dressing, and they do not plan on obtaining a hip kit.. Pt sat at sink to complete oral care, then propelled w/c to therapy gym. OT Tx focused on increasing BUE strength and activity tolerance. Pt completed x15 mins on arm bike, x25 watt resistance, no rest break. Pt propelled w/c around [facility] common area/2nd floor, then back to his room. CGA SPT from w/c to recliner. Post tx, pt up in recliner, call light in reach and all needs met. Education OT Patient Education: Correct positioning, Energy conservation, Modified ADL techniques, Progress toward Goal/Update tx plan, Purpose of tx/functional activities Teaching Recipient: Patient Teaching Methods: Discussion Response to Teaching: Verbalize Understanding OT Short Term Goals Short Term Goals Time Frame: Apr 10, 2021 Shower/bathe self: 4 Lower body dressin Putting on/taking off footwear: 4 OT Senior Care Goals Senior Care Goals Time Frame: Apr 17, 2021 Eating (QC): 6 Oral Hygiene (QC): 6 Toileting Hygiene (QC): 6 Shower/Bathe Self (QC): 5 Upper Body Dressing (QC): 5 Lower Body Dressing (QC): 5 On/Off Footwear (QC): 5 Additional Goals: 1-Demonstrate ADL Tasks, 2-Verbalize Understanding, 3-ImproveStrength/Nena 1=Demonstrate adherence to instructed precautions during ADL tasks. 2=Patient will verbalize/demonstrate understanding of assistive devices/modifications for ADL. 3=Patient will improve strength/tolerance for activity to enable patient to perform ADL's. OT Education/Plan Problem List/Assessment Assessment: Decreased Activ Tolerance, Decreased UE Strength, Impaired I ADL's Discharge Recommendations Plan/Recommendations: Continue POC Treatment Plan/Plan of Care Patient would benefit from OT for education, treatment and training to promote independence in ADL's, mobility, safety and/or upper extremity function for ADL's. Plan of Care: ADL Retraining, Functional Mobility, Group Exercise/Act as Ind, UE Funct Exercise/Act Treatment Duration: Apr 17, 2021 Frequency: At least 5 of 7 days/Wk (IRF) Estimated Hrs Per Day: 1.5 hours per day Rehab Potential: Fair Time/GCodes Start Time: 08:00 Stop Time: 09:30 Total Time Billed (hr/min): 90 Billed Treatment Time 1, ADL 4 (60'), EX (15'), FA (15') GUILLAUME ALMEIDA OT Apr 03, 2021 09:02
[2021-04-03] MEDS: cefTRIAXone 1 GM PRE-MIX 50 ML IV SCH (09:49)
--- NOTE | 2021-04-03 10:05 | Progress Note ---
Subjective Review of Systems General: Fatigue, Malaise Musculoskeletal: leg pain All Other Systems Reviewed All Other Systems Reviewed: Yes Objective Exam Vital Signs Vital Signs Date Time Temp Pulse Resp B/P (MAP) Pulse Ox O2 Delivery O2 Flow Rate FiO2 04/03/21 07:25 36.6 97 14 117/67 (84) 95 Room Air 04/02/21 20:45 Room Air 04/02/21 19:37 37.2 91 20 110/57 (74) 97 Room Air 04/02/21 10:50 Room Air General Appearance: No Apparent Distress, WD/WN Eyes: Bilateral Eye Normal Inspection, Bilateral Eye PERRL HEENT: PERRL/EOMI, Normal ENT Inspection, Pharynx Normal Neck: Full Range of Motion, Normal Inspection, Non Tender, Supple, Carotid Bruit Respiratory: Chest Non Tender, Lungs Clear, Normal Breath Sounds, No Accessory Muscle Use, No Respiratory Distress Cardiovascular: Regular Rate, Rhythm, No Edema, No Gallop, No JVD, No Murmur, Normal Peripheral Pulses Gastrointestinal: Normal Bowel Sounds, No Organomegaly, No Pulsatile Mass, Non Tender, Soft Back: Normal Inspection, No CVA Tenderness, No Vertebral Tenderness Extremity: Normal Capillary Refill, Normal Inspection, Normal Range of Motion (Except lower extremities due to pain), Non Tender, No Calf Tenderness, No Pedal Edema Neurologic/Psychiatric: Alert, Oriented x3, No Motor/Sensory Deficits, Normal Mood/Affect Skin: Normal Color, Warm/Dry Lymphatic: No Adenopathy Results Lab Microbiology 03/30/21 Urine Culture - Final, Complete Enterococcus faecalis 03/30/21 Blood Culture - Preliminary, Resulted No growth ANABELLA SHARP MD Apr 03, 2021 10:05
[2021-04-03 11:07] LABS: HEMATOCRIT 33 % (40-54); HEMOGLOBIN 10.7 g/dL (13.3-17.7); MEAN CORPUSCULAR HEMOGLOBIN 30 pg (25-34); MEAN CORPUSCULAR HGB CONC 32 g/dL (32-36); MEAN CORPUSCULAR VOLUME 92 fL (80-99); MEAN PLATELET VOLUME 8.4 fL (9.0-12.2); PLATELET COUNT 706 10^3/uL (130-400); WHITE BLOOD COUNT 14.5 10^3/uL (4.3-11.0)
[2021-04-03 11:21] LABS: CALCIUM 8.8 MG/DL (8.5-10.1); CREATININE SERUM 0.92 MG/DL (0.60-1.30); POTASSIUM 4.4 MMOL/L (3.6-5.0)
--- NOTE | 2021-04-03 13:03 | Physical Therapy Daily Note ---
PT Daily Note-Current Subjective Pt. agrees to Rx, states he feels he is making progress and is stronger Pain Location: No Pain Reported Mental Status Patient Orientation: Normal For Age Transfers SCALE: Activities may be completed with or without assistive devices. 7-Mfhalxysgc-pieqysv completes the activity by him/herself with no assistance from a helper. 5-Set-up or Clean-up Assistance-helper sets up or cleans up; patient completes activity. [place] assists only prior to or following the activity. 4-Supervision or Touching Assistance-helper provides verbal cues and/or touching/steadying and/or contact guard assistance as patient completes activity. Assistance may be provided throughout the activity or intermittently. 3-Partial/Moderate Assistance-helper does LESS THAN HALF the effort. [place] lifts, holds or supports trunk or limbs, but provides less than half the effort. 2-Substantial/Maximal Assistance-helper does MORE THAN HALF the effort. [place] lifts or holds trunk or limbs and provides more than half the effort. 7-Qmtmapqwh-lfbdde does ALL the effort. Patient does none of the effort to complete the activity. Or, the assistance of 2 or more helpers is required for the patient to complete the activity. If activity was not attempted, code reason: 7-Patient Refused. 9-Not Applicable-not attempted and the patient did not perform the activity be fore the current illness, exacerbation or injury. 10-Not Attempted due to Environmental Limitations-(lack of equipment, weather restraints, etc.). 88-Not Attempted due to Medical Conditions or Safety Concerns. Roll Left & Right (QC): 4 Sit to Lying (QC): 4 Lying to Sitting/Side of Bed(Q: 4 Sit to Stand (QC): 5 Chair/Boa-po-Onmcv Xfer(QC): 5 rolling and sup to side to sit with instruction for using RLE to control LLE for controlled roll etc Weight Bearing Left Lower Extremity: Left Non Weight Bearing Gait Training Does the Patient Walk?: Yes Walk 10 feet (QC): 4 Gait Persons Needed: 1 Gait Assistive Device: FWW 30ft, 20 ft, 10 ft FWW NWB left, CGA , slow w/c to follow improved control Wheelchair Training Does the Pt Use a Wheelchair?: Yes Wheel 50 ft with 2 turns (QC): 6 Wheel 150 ft (QC): 6 Type of Wheelchair: Manual Exercises Supine Ex: Ankle pumps, Quad Set, Rolling, Glut sets, Heel Slides (assisted left), Short Arc Quads, Scooting, Straight leg raise (assisted left) Supine Reps: 15 Seated Therapy Exercises: Ankle pumps, Sit to stand, Long arc quads Seated Reps: 15 Assessment Current Status: Good Progress PT Short Term Goals Short Term Goals Time Frame: Apr 06, 2021 Roll Left & Right: 4 (SBA) Sit to lyin (CGA) Lying to sitting on side of be: 3 ([place]) Sit to stand: 4 (SBA) Chair/btr-jl-wfyzp transfer: 4 (SBA) Walk 10 feet: 4 PT Correction Goals Correction Goals PT Correction Goals Time Frame: Apr 20, 2021 Roll Left & Right (QC): 5 Sit to Lying (QC): 4 Lying-Sitting on Side/Bed(QC): 4 Sit to Stand (QC): 4 Chair/Sej-pw-Cuqzh Xfer(QC): 4 Toilet Transfer (QC): 4 Car Transfer (QC): 4 Does the Patient Walk: Yes Walk 10 feet (QC): 4 Walk 50ft with 2 Turns (QC): 4 Walk 150 ft (QC): 88 Walking 10ft on Uneven Surface: 4 1 Step (curb) (QC): 4 4 Steps (QC): 88 12 Steps (QC): 88 Picking up an Object (QC): 6 Wheel 50 feet with 2 turns (QC: 6 Wheel 150 feet: 6 PT Plan Treatment/Plan Treatment Plan: Continue Plan of Care Treatment Plan: Bed Mobility, Education, Functional Activity Nena, Functional Strength, Gait, Safety, Therapeutic Exercise, Transfers Treatment Duration: Apr 20, 2021 Frequency: At least 5 of 7 days/Wk (IRF) Estimated Hrs Per Day: 1.5 hours per day Patient and/or Family Agrees t: Yes Safety Risks/Education Patient Education: Gait Training, Transfer Techniques, Correct Positioning, Safety Issues Teaching Recipient: Patient Teaching Methods: Demonstration, Discussion Response to Teaching: Verbalize Understanding, Return Demonstration, Reinfor cement Needed Time/GCodes Time In: 1100 Time Out: 1200 Total Billed Treatment Time: 60 Total Billed Treatment 1,EX20m,FA25m,GT15m ZENY AIKEN CARBON SETTER Apr 03, 2021 13:03
--- NOTE | 2021-04-03 14:58 | Physical Therapy Daily Note ---
PT Daily Note-Current Subjective Pt states he feels well this afternoon. Agrees to gait and exercise. Pain Location: No Pain Reported Mental Status Patient Orientation: Normal For Age Transfers SCALE: Activities may be completed with or without assistive devices. 4-Aazykwfyoe-jxkhvho completes the activity by him/herself with no assistance from a helper. 5-Set-up or Clean-up Assistance-helper sets up or cleans up; patient completes activity. [place] assists only prior to or following the activity. 4-Supervision or Touching Assistance-helper provides verbal cues and/or touching/steadying and/or contact guard assistance as patient completes activity. Assistance may be provided throughout the activity or intermittently. 3-Partial/Moderate Assistance-helper does LESS THAN HALF the effort. [place] lifts, holds or supports trunk or limbs, but provides less than half the effort. 2-Substantial/Maximal Assistance-helper does MORE THAN HALF the effort. [place] lifts or holds trunk or limbs and provides more than half the effort. 3-Fcsuvgzdq-oxqwfa does ALL the effort. Patient does none of the effort to complete the activity. Or, the assistance of 2 or more helpers is required for the patient to complete the activity. If activity was not attempted, code reason: 7-Patient Refused. 9-Not Applicable-not attempted and the patient did not perform the activity befo re the current illness, exacerbation or injury. 10-Not Attempted due to Environmental Limitations-(lack of equipment, weather re straints, etc.). 88-Not Attempted due to Medical Conditions or Safety Concerns. sit to stand CGA, sit to sup requires min to mod assist LEs in to bed. Weight Bearing Left Lower Extremity: Left Non Weight Bearing Gait Training Does the Patient Walk?: Yes Gait Assistive Device: FWW 35ft, 25 ft, 10 ft FWW CGA NWB LLE, pt. fatigues and requests to sit Wheelchair Training Does the Pt Use a Wheelchair?: Yes Type of Wheelchair: Manual brakes and propels indep 150 ft plus Exercises NuStep Minutes: 10 NuStep Workload: 3 Treatments LLE rested on wedge during Nustep, resting in room in bed after Rx, family in room Assessment Current Status: Good Progress PT Short Term Goals Short Term Goals Time Frame: Apr 06, 2021 Roll Left & Right: 4 (SBA) Sit to lyin (CGA) Lying to sitting on side of be: 3 ([place]) Sit to stand: 4 (SBA) Chair/hvk-do-lbysp transfer: 4 (SBA) Walk 10 feet: 4 PT Hourly Sales Staff Goals Half-Way Goals PT Half-Way Goals Time Frame: Apr 20, 2021 Roll Left & Right (QC): 5 Sit to Lying (QC): 4 Lying-Sitting on Side/Bed(QC): 4 Sit to Stand (QC): 4 Chair/Znj-ul-Gmyiq Xfer(QC): 4 Toilet Transfer (QC): 4 Car Transfer (QC): 4 Does the Patient Walk: Yes Walk 10 feet (QC): 4 Walk 50ft with 2 Turns (QC): 4 Walk 150 ft (QC): 88 Walking 10ft on Uneven Surface: 4 1 Step (curb) (QC): 4 4 Steps (QC): 88 12 Steps (QC): 88 Picking up an Object (QC): 6 Wheel 50 feet with 2 turns (QC: 6 Wheel 150 feet: 6 PT Plan Treatment/Plan Treatment Plan: Continue Plan of Care Treatment Plan: Bed Mobility, Education, Functional Activity Nena, Functional Strength, Gait, Safety, Therapeutic Exercise, Transfers Treatment Duration: Apr 20, 2021 Frequency: At least 5 of 7 days/Wk (IRF) Estimated Hrs Per Day: 1.5 hours per day Patient and/or Family Agrees t: Yes Safety Risks/Education Patient Education: Gait Training, Transfer Techniques, Correct Positioning, W/C Management, Disease Process, Safety Issues Teaching Recipient: Patient Teaching Methods: Demonstration, Discussion Response to Teaching: Verbalize Understanding, Return Demonstration, Reinforcement Needed Time/GCodes Time In: 1420 Time Out: 1450 Total Billed Treatment Time: 30 Total Billed Treatment 1,GT15m,EX15m ZENY AIKEN SUPERVISING FIRE MARSHAL Apr 03, 2021 14:58
[2021-04-03] MEDS: AUGMENTIN 875 MG TAB (AMOXICILLIN/CLAVULANATE) PO SCH (18:03)
[2021-04-03 20:06] VITALS: BP 116/60
[2021-04-03] MEDS: ROSUVASTATIN 20 MG (CRESTOR) TABLET PO SCH (21:05)
[2021-04-03] MEDS: FINASTERIDE (PROSCAR) 5 MG TAB PO SCH (21:05)
[2021-04-03] MEDS: amLODIPine 5 MG (NORVASC) TAB PO SCH (21:06)
[2021-04-04 06:00] LABS: BASOPHILS # (AUTO) 0.1 10^3/uL (0.0-0.1); BASOPHILS % (AUTO) 1 % (0-10); EOSINOPHILS # (AUTO) 0.4 10^3/uL (0.0-0.3); EOSINOPHILS % (AUTO) 4 % (0-10); HEMATOCRIT 32 % (40-54); HEMOGLOBIN 10.4 g/dL (13.3-17.7); LYMPHOCYTES # (AUTO) 1.8 10^3/uL (1.0-4.0); LYMPHOCYTES % (AUTO) 16 % (12-44); MEAN CORPUSCULAR HEMOGLOBIN 30 pg (25-34); MEAN CORPUSCULAR HGB CONC 33 g/dL (32-36); MEAN CORPUSCULAR VOLUME 91 fL (80-99); MEAN PLATELET VOLUME 8.4 fL (9.0-12.2); MONOCYTES # (AUTO) 0.9 10^3/uL (0.0-1.0); MONOCYTES % (AUTO) 9 % (0-12); NEUTROPHILS # (AUTO) 7.3 10^3/uL (1.8-7.8); NEUTROPHILS % (AUTO) 67 % (42-75); PLATELET COUNT 737 10^3/uL (130-400); WHITE BLOOD COUNT 10.9 10^3/uL (4.3-11.0)
[2021-04-04 06:48] LABS: ALBUMIN 2.8 GM/DL (3.2-4.5); POTASSIUM 4.1 MMOL/L (3.6-5.0)
[2021-04-04 06:49] LABS: CALCIUM 8.5 MG/DL (8.5-10.1)
[2021-04-04 06:50] LABS: TOTAL PROTEIN 5.7 GM/DL (6.4-8.2)
[2021-04-04 06:52] LABS: BILIRUBIN,TOTAL 0.7 MG/DL (0.1-1.0)
[2021-04-04 06:54] LABS: CREATININE SERUM 0.76 MG/DL (0.60-1.30)
--- NOTE | 2021-04-04 08:18 | PM&R Progress Note ---
Subjective HPI/CC On Admission Date Seen by Provider: Apr 04, 2021 Time Seen by Provider: 12:30 Subjective/Events-last exam 04/04/2021: Patient doing very well Overall very improved UTI with Enterococcus noted Augmentin tolerated Platelet count elevated which is concerning but could be due to the traumatic bone fractures that will take months to heal ultimately be concerning for bone infection if continues 04/03/2021: Pt doing well called and asked about repeat labs so will defer that to PCP Bowels re moving Tylenol ordered Incision looks good 04/02/2021: Pt doing well Had a very low grade fever once Bowels are moving Taking only Tylenol Checked meds and labs 04/01/2021: Pt doing well Bowels moved this morning No complaints No fever Norvasc held due to BP of 95/54 Zithromax and Rocephin maintained empirically 03/31/2021: Pt doing well Still remains tachycardic No fever Procalcitonin of 0.23 Could be a bronchial component since CXR and urine were both negative Overall doing much better at bedside Review of Systems General: Fatigue, Malaise Musculoskeletal: leg pain Objective Exam Vital Signs Vital Signs Date Time Temp Pulse Resp B/P (MAP) Pulse Ox O2 Delivery O2 Flow Rate FiO2 04/04/21 21:00 Room Air 04/04/21 20:00 36.7 99 18 112/70 (84) 97 Capillary Refill : General Appearance: No Apparent Distress, WD/WN HEENT: PERRL/EOMI, Normal ENT Inspection, Pharynx Normal Neck: Full Range of Motion, Normal Inspection, Non Tender, Supple, Carotid Bruit Respiratory: Chest Non Tender, Lungs Clear, Normal Breath Sounds, No Accessory Muscle Use, No Respiratory Distress Cardiovascular: Regular Rate, Rhythm, No Edema, No Gallop, No JVD, No Murmur, Normal Peripheral Pulses Gastrointestinal: Normal Bowel Sounds, No Organomegaly, No Pulsatile Mass, Non Tender, Soft Back: Normal Inspection, No CVA Tenderness, No Vertebral Tenderness Extremity: Normal Capillary Refill, Normal Inspection, Normal Range of Motion (Except lower extremities due to pain), Non Tender, No Calf Tenderness, No Pedal Edema Neurologic/Psychiatric: Alert, Oriented x3, No Motor/Sensory Deficits, Normal Mood/Affect Skin: Normal Color, Warm/Dry Lymphatic: No Adenopathy Results/Procedures Lab Patient resulted labs reviewed. FIM Transfers Therapy Code Descriptions/Definitions Functional [place] Measure: 0=Not Assessed/NA 4=Minimal Assistance 1=Total Assistance 5=Supervision or Setup 2=Maximal Assistance 6=Modified [place] 3=Moderate Assistance 7=Complete IndependenceSCALE: Activities may be completed with or without assistive devices. 0-Arukvgcnyi-miwpjck completes the activity by him/herself with no assistance from a helper. 5-Set-up or Clean-up Assistance-helper sets up or cleans up; patient completes activity. [place] assists only prior to or following the activity. 4-Supervision or Touching Assistance-helper provides verbal cues and/or touching/steadying and/or contact guard assistance as patient completes activity. Assistance may be provided throughout the activity or intermittently. 3-Partial/Moderate Assistance-helper does LESS THAN HALF the effort. [place] lifts, holds or supports trunk or limbs, but provides less than half the effort. 2-Substantial/Maximal Assistance-helper does MORE THAN HALF the effort. [place] lifts or holds trunk or limbs and provides more than half the effort. 8-Dmlgxwdsf-odircr does ALL the effort. Patient does none of the effort to complete the activity. Or, the assistance of 2 or more helpers is required for the patient to complete the activity. If activity was not attempted, code reason: 7-Patient Refused. 9-Not Applicable-not attempted and the patient did not perform the activity before the current illness, exacerbation or injury. 10-Not Attempted due to Environmental Limitations-(lack of equipment, weather restraints, etc.). 88-Not Attempted due to Medical Conditions or Safety Concerns. Roll Left to Right (QC): 4 Sit to Lying (QC): 4 Sit to Stand (QC): 5 Chair/Ssl-xd-Xtsxe Xfer(QC): 5 Car Transfer (QC): 3 Gait Training Does the Patient Walk?: Yes Walk 10 feet (QC): 4 Walk 50 ft with 2 Turns(QC): 88 Walk 150 ft (QC): 88 Walking 10ft/uneven surface-QC: 88 Gait Persons Needed: 1 Gait Assistive Device: FWW Wheelchair Training Does the Pt Use a Wheelchair?: Yes Distance: 150' Wheel 50 ft with 2 turns (QC): 6 Wheel 150 ft (QC): 6 Type of Wheelchair: Manual Stair Training 1 Step (curb) (QC): 88 4 Steps (QC): 88 12 Steps (QC): 88 Balance Picking up an Object (QC): 4 ADL-Treatment Eating (QC): 6 Oral Hygiene (QC): 6 Shower/Bathe Self (QC): 5 Upper Body Dressing (QC): 6 Lower Body Dressing (QC): 4 (CGA) On/Off Footwear (QC): 3 (Mod A. Assist BLE tedhose, pt mele to don RLE shoe) Toileting Hygiene (QC): 4 (CGA) Assessment/Plan Assessment and Plan Assess & Plan/Chief Complaint Assessment: Fall from ladder Bilateral acetabular fractures Acute pulmonary embolism placed on anticoagulation History of atrial fibrillation status post ablation Fever of 102.5 upon admission to inpatient rehab unit negative except for white count of 19,000 placed on antibiotics empirically urine culture revealed UTI Abnormal complete blood count with differential will order peripheral smear and LDH Thrombocytosis Plan: Pain control Bowel regimen Supportive care 03/31/2021: Continue antibiotics Pain control 04/01/2021: Continue empiric antibiotics Supportive care 04/02/2021: Peripheral smear no pathological issue Monitor for fever 04/03/2021: Repeat labs Follow thrombocytosis 04/04/2021: Supportive care Pain control (1) Closed left acetabular fracture Status: Acute CLAUDIA KELYL DO Apr 04, 2021 08:18
[2021-04-04 08:39] VITALS: BP 117/71
[2021-04-04] MEDS: MAGNESIUM OXIDE (MAG-OX)400 MG TAB PO SCH ×2 (08:42→21:29)
[2021-04-04] MEDS: LACTOBACILLUS ACIDOPHILUS (PROBIOTIC) CAPSULE PO SCH ×3 (08:42→17:59)
[2021-04-04] MEDS: AUGMENTIN 875 MG TAB (AMOXICILLIN/CLAVULANATE) PO SCH ×2 (08:43→17:59)
[2021-04-04] MEDS: VITAMIN D3 25 MCG (1,000 UNITS) TABLET PO SCH (08:43)
[2021-04-04] MEDS: PANTOPRAZOLE 20 MG TABLET (PROTONIX) PO SCH ×2 (08:43→21:29)
[2021-04-04] MEDS: ASPIRIN E.C. 81 MG (ECOTRIN) TAB PO SCH (08:43)
[2021-04-04] MEDS: LORATADINE (CLARITIN) 10 MG TAB PO SCH (08:43)
[2021-04-04] MEDS: APIXABAN 5 MG (ELIQUIS) TABLET PO SCH ×2 (08:44→21:29)
[2021-04-04] MEDS: polyethylene glycoL POWDER 17 GM (MIRALAX) PACK PO SCH ×2 (08:45→21:00)
[2021-04-04] MEDS: SENNA W/DOCUSATE (SENOKOT S) TABLET PO SCH ×2 (09:10→21:29)
[2021-04-04] MEDS: DOCUSATE SODIUM 100 MG (COLACE) CAP PO SCH ×2 (09:10→21:29)
--- NOTE | 2021-04-04 09:15 | Physical Therapy Daily Note ---
PT Daily Note-Current Subjective Pt. agrees to Rx. Wants to walk in // bars and sit in bthrm for morning clean up Pain Location: No Pain Reported Mental Status Patient Orientation: Normal For Age Transfers SCALE: Activities may be completed with or without assistive devices. 3-Cfcikggobp-jkdleil completes the activity by him/herself with no assistance from a helper. 5-Set-up or Clean-up Assistance-helper sets up or cleans up; patient completes activity. [place] assists only prior to or following the activity. 4-Supervision or Touching Assistance-helper provides verbal cues and/or touching/steadying and/or contact guard assistance as patient completes activity. Assistance may be provided throughout the activity or intermittently. 3-Partial/Moderate Assistance-helper does LESS THAN HALF the effort. [place] lifts, holds or supports trunk or limbs, but provides less than half the effort. 2-Substantial/Maximal Assistance-helper does MORE THAN HALF the effort. [place] lifts or holds trunk or limbs and provides more than half the effort. 5-Zuswujukp-hacrpz does ALL the effort. Patient does none of the effort to complete the activity. Or, the assistance of 2 or more helpers is required for the patient to complete the activity. If activity was not attempted, code reason: 7-Patient Refused. 9-Not Applicable-not attempted and the patient did not perform the activity before the current illness, exacerbation or injury. 10-Not Attempted due to Environmental Limitations-(lack of equipment, weather restraints, etc.). 88-Not Attempted due to Medical Conditions or Safety Concerns. sit to stand all SBA, SPT CGA with FWW Weight Bearing Left Lower Extremity: Left Non Weight Bearing Gait Training Does the Patient Walk?: Yes Gait Assistive Device: Parallel Bars 15ftx3 in // bars CGA, turning at end of bars, fatigues with gait, needs rest Wheelchair Training Does the Pt Use a Wheelchair?: Yes Type of Wheelchair: Manual 150ft x 2 mod I Exercises Seated Therapy Exercises: Ankle pumps, Sit to stand, Long arc quads Seated Reps: 12 Treatments toileted indep, changed pants with mod assist, at sink after Rx for morning claen up Assessment Current Status: Good Progress PT Short Term Goals Short Term Goals Time Frame: Apr 06, 2021 Roll Left & Right: 4 (SBA) Sit to lyin (CGA) Lying to sitting on side of be: 3 ([place]) Sit to stand: 4 (SBA) Chair/swt-nu-vnnri transfer: 4 (SBA) Walk 10 feet: 4 PT Custodial Goals Custodial Goals PT Custodial Goals Time Frame: Apr 20, 2021 Roll Left & Right (QC): 5 Sit to Lying (QC): 4 Lying-Sitting on Side/Bed(QC): 4 Sit to Stand (QC): 4 Chair/Wjr-fx-Fteao Xfer(QC): 4 Toilet Transfer (QC): 4 Car Transfer (QC): 4 Does the Patient Walk: Yes Walk 10 feet (QC): 4 Walk 50ft with 2 Turns (QC): 4 Walk 150 ft (QC): 88 Walking 10ft on Uneven Surface: 4 1 Step (curb) (QC): 4 4 Steps (QC): 88 12 Steps (QC): 88 Picking up an Object (QC): 6 Wheel 50 feet with 2 turns (QC: 6 Wheel 150 feet: 6 PT Plan Treatment/Plan Treatment Plan: Continue Plan of Care Treatment Plan: Bed Mobility, Education, Functional Activity Nena, Functional Strength, Gait, Safety, Therapeutic Exercise, Transfers Treatment Duration: Apr 20, 2021 Frequency: At least 5 of 7 days/Wk (IRF) Estimated Hrs Per Day: 1.5 hours per day Patient and/or Family Agrees t: Yes Safety Risks/Education Patient Education: Gait Training, Transfer Techniques Time/GCodes Time In: 820 Time Out: 850 Total Billed Treatment Time: 30 Total Billed Treatment 1,FA10m,GT20m ZENY AIKEN DOCUMENT MANAGEMENT ANALYST Apr 04, 2021 09:15
[2021-04-04 20:00] VITALS: BP 112/70
[2021-04-04] MEDS: amLODIPine 5 MG (NORVASC) TAB PO SCH (21:29)
[2021-04-04] MEDS: ROSUVASTATIN 20 MG (CRESTOR) TABLET PO SCH (21:29)
[2021-04-04] MEDS: FINASTERIDE (PROSCAR) 5 MG TAB PO SCH (21:29)
[2021-04-05 07:25] VITALS: BP 113/73
[2021-04-05] MEDS: VITAMIN D3 25 MCG (1,000 UNITS) TABLET PO SCH (09:18)
[2021-04-05] MEDS: SENNA W/DOCUSATE (SENOKOT S) TABLET PO SCH ×2 (09:18→21:59)
[2021-04-05] MEDS: AUGMENTIN 875 MG TAB (AMOXICILLIN/CLAVULANATE) PO SCH (09:18)
[2021-04-05] MEDS: LACTOBACILLUS ACIDOPHILUS (PROBIOTIC) CAPSULE PO SCH ×3 (09:18→17:54)
[2021-04-05] MEDS: LORATADINE (CLARITIN) 10 MG TAB PO SCH (09:19)
[2021-04-05] MEDS: DOCUSATE SODIUM 100 MG (COLACE) CAP PO SCH ×2 (09:19→21:57)
[2021-04-05] MEDS: PANTOPRAZOLE 20 MG TABLET (PROTONIX) PO SCH ×2 (09:19→21:57)
[2021-04-05] MEDS: APIXABAN 5 MG (ELIQUIS) TABLET PO SCH ×2 (09:19→21:56)
[2021-04-05] MEDS: ASPIRIN E.C. 81 MG (ECOTRIN) TAB PO SCH (09:19)
[2021-04-05] MEDS: polyethylene glycoL POWDER 17 GM (MIRALAX) PACK PO SCH ×2 (09:19→21:59)
[2021-04-05] MEDS: MAGNESIUM OXIDE (MAG-OX)400 MG TAB PO SCH ×2 (09:19→21:56)
--- NOTE | 2021-04-05 12:21 | PM&R Progress Note ---
Subjective HPI/CC On Admission Date Seen by Provider: Apr 05, 2021 Time Seen by Provider: 12:00 Subjective/Events-last exam 04/05/2021: Patient doing well Pain is well controlled Finishing up on antibiotics inquired about Eliquis prescription 04/04/2021: Patient doing very well Overall very improved UTI with Enterococcus noted Augmentin tolerated Platelet count elevated which is concerning but could be due to the traumatic bone fractures that will take months to heal ultimately be concerning for bone infection if continues 04/03/2021: Pt doing well called and asked about repeat labs so will defer that to PCP Bowels re moving Tylenol ordered Incision looks good 04/02/2021: Pt doing well Had a very low grade fever once Bowels are moving Taking only Tylenol Checked meds and labs 04/01/2021: Pt doing well Bowels moved this morning No complaints No fever Norvasc held due to BP of 95/54 Zithromax and Rocephin maintained empirically 03/31/2021: Pt doing well Still remains tachycardic No fever Procalcitonin of 0.23 Could be a bronchial component since CXR and urine were both negative Overall doing much better at bedside Review of Systems General: Fatigue Objective Exam Vital Signs Vital Signs Date Time Temp Pulse Resp B/P (MAP) Pulse Ox O2 Delivery O2 Flow Rate FiO2 04/05/21 21:55 96 Room Air 04/05/21 20:00 37.2 86 16 108/55 (72) Capillary Refill : General Appearance: No Apparent Distress, WD/WN HEENT: PERRL/EOMI, Normal ENT Inspection, Pharynx Normal Neck: Full Range of Motion, Normal Inspection, Non Tender, Supple, Carotid Bruit Respiratory: Chest Non Tender, Lungs Clear, Normal Breath Sounds, No Accessory Muscle Use, No Respiratory Distress Cardiovascular: Regular Rate, Rhythm, No Edema, No Gallop, No JVD, No Murmur, Normal Peripheral Pulses Gastrointestinal: Normal Bowel Sounds, No Organomegaly, No Pulsatile Mass, Non Tender, Soft Back: Normal Inspection, No CVA Tenderness, No Vertebral Tenderness Extremity: Normal Capillary Refill, Normal Inspection, Normal Range of Motion (Except lower extremities due to pain), Non Tender, No Calf Tenderness, No Pedal Edema Neurologic/Psychiatric: Alert, Oriented x3, No Motor/Sensory Deficits, Normal Mood/Affect Skin: Normal Color, Warm/Dry Lymphatic: No Adenopathy Results/Procedures Lab Patient resulted labs reviewed. FIM Transfers Therapy Code Descriptions/Definitions Functional [place] Measure: 0=Not Assessed/NA 4=Minimal Assistance 1=Total Assistance 5=Supervision or Setup 2=Maximal Assistance 6=Modified [place] 3=Moderate Assistance 7=Complete IndependenceSCALE: Activities may be completed with or without assistive devices. 7-Fqrojmqyrb-bjvlpii completes the activity by him/herself with no assistance f rom a helper. 5-Set-up or Clean-up Assistance-helper sets up or cleans up; patient completes activity. [place] assists only prior to or following the activity. 4-Supervision or Touching Assistance-helper provides verbal cues and/or touching/steadying and/or contact guard assistance as patient completes activity. Assistance may be provided throughout the activity or intermittently. 3-Partial/Moderate Assistance-helper does LESS THAN HALF the effort. [place] lifts, holds or supports trunk or limbs, but provides less than half the effort. 2-Substantial/Maximal Assistance-helper does MORE THAN HALF the effort. [place] lifts or holds trunk or limbs and provides more than half the effort. 5-Evwxiyehv-wkujtf does ALL the effort. Patient does none of the effort to complete the activity. Or, the assistance of 2 or more helpers is required for the patient to complete the activity. If activity was not attempted, code reason: 7-Patient Refused. 9-Not Applicable-not attempted and the patient did not perform the activity before the current illness, exacerbation or injury. 10-Not Attempted due to Environmental Limitations-(lack of equipment, weather restraints, etc.). 88-Not Attempted due to Medical Conditions or Safety Concerns. Roll Left to Right (QC): 4 Sit to Lying (QC): 4 Sit to Stand (QC): 5 Chair/Yjm-nr-Xrnrj Xfer(QC): 5 Car Transfer (QC): 3 Gait Training Does the Patient Walk?: Yes Walk 10 feet (QC): 4 Walk 50 ft with 2 Turns(QC): 88 Walk 150 ft (QC): 88 Walking 10ft/uneven surface-QC: 88 Gait Persons Needed: 1 Gait Assistive Device: Parallel Bars Wheelchair Training Does the Pt Use a Wheelchair?: Yes Distance: 150' Wheel 50 ft with 2 turns (QC): 6 Wheel 150 ft (QC): 6 Type of Wheelchair: Manual Stair Training 1 Step (curb) (QC): 88 4 Steps (QC): 88 12 Steps (QC): 88 Balance Picking up an Object (QC): 4 ADL-Treatment Eating (QC): 6 Oral Hygiene (QC): 6 Shower/Bathe Self (QC): 5 Upper Body Dressing (QC): 6 Lower Body Dressing (QC): 4 (CGA) On/Off Footwear (QC): 3 (Mod A. Assist BLE tedhose, pt mele to don RLE shoe) Toileting Hygiene (QC): 4 (CGA) Assessment/Plan Assessment and Plan Assess & Plan/Chief Complaint Assessment: Fall from ladder Bilateral acetabular fractures Acute pulmonary embolism placed on anticoagulation History of atrial fibrillation status post ablation Fever of 102.5 upon admission to inpatient rehab unit negative except for white count of 19,000 placed on antibiotics empirically urine culture revealed UTI Abnormal complete blood count with differential will order peripheral smear and LDH Thrombocytosis Plan: Pain control Bowel regimen Supportive care 03/31/2021: Continue antibiotics Pain control 04/01/2021: Continue empiric antibiotics Supportive care 04/02/2021: Peripheral smear no pathological issue Monitor for fever 04/03/2021: Repeat labs Follow thrombocytosis 04/04/2021: Supportive care Pain control 04/05/2021: Supportive care (1) Closed left acetabular fracture Status: Acute CLAUDIA KELLY DO Apr 05, 2021 12:21
[2021-04-05 20:00] VITALS: BP 108/55
[2021-04-05] MEDS: ROSUVASTATIN 20 MG (CRESTOR) TABLET PO SCH (21:56)
[2021-04-05] MEDS: FINASTERIDE (PROSCAR) 5 MG TAB PO SCH (21:57)
[2021-04-05] MEDS: amLODIPine 5 MG (NORVASC) TAB PO SCH (21:57)
[2021-04-06 05:42] LABS: BASOPHILS # (AUTO) 0.1 10^3/uL (0.0-0.1); BASOPHILS % (AUTO) 1 % (0-10); EOSINOPHILS # (AUTO) 0.4 10^3/uL (0.0-0.3); EOSINOPHILS % (AUTO) 4 % (0-10); HEMATOCRIT 32 % (40-54); HEMOGLOBIN 10.1 g/dL (13.3-17.7); LYMPHOCYTES % (AUTO) 18 % (12-44); MEAN CORPUSCULAR HEMOGLOBIN 29 pg (25-34); MEAN CORPUSCULAR HGB CONC 32 g/dL (32-36); MEAN CORPUSCULAR VOLUME 93 fL (80-99); MEAN PLATELET VOLUME 8.4 fL (9.0-12.2); MONOCYTES % (AUTO) 9 % (0-12); NEUTROPHILS # (AUTO) 7.3 10^3/uL (1.8-7.8); NEUTROPHILS % (AUTO) 67 % (42-75); PLATELET COUNT 773 10^3/uL (130-400)
[2021-04-06 06:02] LABS: ALBUMIN 2.7 GM/DL (3.2-4.5); POTASSIUM 4.1 MMOL/L (3.6-5.0)
[2021-04-06 06:03] LABS: CALCIUM 8.5 MG/DL (8.5-10.1)
[2021-04-06 06:04] LABS: TOTAL PROTEIN 5.7 GM/DL (6.4-8.2)
[2021-04-06 06:06] LABS: BILIRUBIN,TOTAL 0.5 MG/DL (0.1-1.0)
[2021-04-06 06:08] LABS: CREATININE SERUM 0.75 MG/DL (0.60-1.30)
[2021-04-06] MEDS: ACETAMINOPHEN 325 MG TABLET PO PRN (06:45)
[2021-04-06 07:30] VITALS: BP 122/72
[2021-04-06] MEDS: DOCUSATE SODIUM 100 MG (COLACE) CAP PO SCH ×2 (07:35→21:22)
[2021-04-06] MEDS: VITAMIN D3 25 MCG (1,000 UNITS) TABLET PO SCH (07:35)
[2021-04-06] MEDS: MAGNESIUM OXIDE (MAG-OX)400 MG TAB PO SCH ×2 (07:35→21:22)
[2021-04-06] MEDS: LORATADINE (CLARITIN) 10 MG TAB PO SCH (07:36)
[2021-04-06] MEDS: PANTOPRAZOLE 20 MG TABLET (PROTONIX) PO SCH ×2 (07:36→21:22)
[2021-04-06] MEDS: ASPIRIN E.C. 81 MG (ECOTRIN) TAB PO SCH (07:36)
[2021-04-06] MEDS: LACTOBACILLUS ACIDOPHILUS (PROBIOTIC) CAPSULE PO SCH ×3 (07:36→17:30)
[2021-04-06] MEDS: APIXABAN 5 MG (ELIQUIS) TABLET PO SCH ×2 (07:37→21:22)
[2021-04-06] MEDS: SENNA W/DOCUSATE (SENOKOT S) TABLET PO SCH ×2 (07:38→21:28)
--- NOTE | 2021-04-06 08:45 | PM&R Progress Note ---
Subjective HPI/CC On Admission Date Seen by Provider: Apr 06, 2021 Time Seen by Provider: 09:00 Subjective/Events-last exam 04/06/2021: Pt doing really well Incision appears to be slightly red so Dr. Calderon will be contacted Appointment in one week with Dr. Calderon Ready to go home Tuesday04/05/2021: Patient doing well Pain is well controlled Finishing up on antibiotics inquired about Eliquis prescription 04/04/2021: Patient doing very well Overall very improved UTI with Enterococcus noted Augmentin tolerated Platelet count elevated which is concerning but could be due to the traumatic bone fractures that will take months to heal ultimately be concerning for bone infection if continues 04/03/2021: Pt doing well called and asked about repeat labs so will defer that to PCP Bowels re moving Tylenol ordered Incision looks good 04/02/2021: Pt doing well Had a very low grade fever once Bowels are moving Taking only Tylenol Checked meds and labs 04/01/2021: Pt doing well Bowels moved this morning No complaints No fever Norvasc held due to BP of 95/54 Zithromax and Rocephin maintained empirically 03/31/2021: Pt doing well Still remains tachycardic No fever Procalcitonin of 0.23 Could be a bronchial component since CXR and urine were both negative Overall doing much better at bedside Review of Systems Musculoskeletal: leg pain Objective Exam Vital Signs Vital Signs Date Time Temp Pulse Resp B/P (MAP) Pulse Ox O2 Delivery O2 Flow Rate FiO2 04/06/21 21:25 97 Room Air 04/06/21 19:48 37.3 96 16 106/65 (79) Capillary Refill : General Appearance: No Apparent Distress, WD/WN HEENT: PERRL/EOMI, Normal ENT Inspection, Pharynx Normal Neck: Full Range of Motion, Normal Inspection, Non Tender, Supple, Carotid Bruit Respiratory: Chest Non Tender, Lungs Clear, Normal Breath Sounds, No Accessory Muscle Use, No Respiratory Distress Cardiovascular: Regular Rate, Rhythm, No Edema, No Gallop, No JVD, No Murmur, Normal Peripheral Pulses Gastrointestinal: Normal Bowel Sounds, No Organomegaly, No Pulsatile Mass, Non Tender, Soft Back: Normal Inspection, No CVA Tenderness, No Vertebral Tenderness Extremity: Normal Capillary Refill, Normal Inspection, Normal Range of Motion (Except lower extremities due to pain), Non Tender, No Calf Tenderness, No Pedal Edema Neurologic/Psychiatric: Alert, Oriented x3, No Motor/Sensory Deficits, Normal Mood/Affect Skin: Normal Color, Warm/Dry Lymphatic: No Adenopathy Results/Procedures Lab Laboratory Tests 04/06/21 05:28 Patient resulted labs reviewed. FIM Transfers Therapy Code Descriptions/Definitions Functional [place] Measure: 0=Not Assessed/NA 4=Minimal Assistance 1=Total Assistance 5=Supervision or Setup 2=Maximal Assistance 6=Modified [place] 3=Moderate Assistance 7=Complete IndependenceSCALE: Activities may be completed with or without assistive devices. 9-Egppgscrnn-dkqhsgn completes the activity by him/herself with no assistance from a helper. 5-Set-up or Clean-up Assistance-helper sets up or cleans up; patient completes activity. [place] assists only prior to or following the activity. 4-Supervision or Touching Assistance-helper provides verbal cues and/or touching/steadying and/or contact guard assistance as patient completes activity. Assistance may be provided throughout the activity or intermittently. 3-Partial/Moderate Assistance-helper does LESS THAN HALF the effort. [place] lifts, holds or supports trunk or limbs, but provides less than half the effort. 2-Substantial/Maximal Assistance-helper does MORE THAN HALF the effort. [place] lifts or holds trunk or limbs and provides more than half the effort. 4-Knbvohnfu-esynrc does ALL the effort. Patient does none of the effort to complete the activity. Or, the assistance of 2 or more helpers is required for the patient to complete the activity. If activity was not attempted, code reason: 7-Patient Refused. 9-Not Applicable-not attempted and the patient did not perform the activity before the current illness, exacerbation or injury. 10-Not Attempted due to Environmental Limitations-(lack of equipment, weather restraints, etc.). 88-Not Attempted due to Medical Conditions or Safety Concerns. Roll Left to Right (QC): 4 Sit to Lying (QC): 4 Sit to Stand (QC): 5 Chair/Lnw-uz-Yjmgz Xfer(QC): 5 Car Transfer (QC): 3 Gait Training Does the Patient Walk?: Yes Walk 10 feet (QC): 4 Walk 50 ft with 2 Turns(QC): 88 Walk 150 ft (QC): 88 Walking 10ft/uneven surface-QC: 88 Gait Persons Needed: 1 Gait Assistive Device: Parallel Bars Wheelchair Training Does the Pt Use a Wheelchair?: Yes Distance: 150' Wheel 50 ft with 2 turns (QC): 6 Wheel 150 ft (QC): 6 Type of Wheelchair: Manual Stair Training 1 Step (curb) (QC): 88 4 Steps (QC): 88 12 Steps (QC): 88 Balance Picking up an Object (QC): 4 ADL-Treatment Eating (QC): 6 Oral Hygiene (QC): 6 Shower/Bathe Self (QC): 5 Upper Body Dressing (QC): 6 Lower Body Dressing (QC): 4 (CGA) On/Off Footwear (QC): 3 (Mod A. Assist BLE tedhose, pt mele to don RLE shoe) Toileting Hygiene (QC): 4 (CGA) Assessment/Plan Assessment and Plan Assess & Plan/Chief Complaint Assessment: Fall from ladder Bilateral acetabular fractures Acute pulmonary embolism placed on anticoagulation History of atrial fibrillation status post ablation Fever of 102.5 upon admission to inpatient rehab unit negative except for white count of 19,000 placed on antibiotics empirically urine culture revealed UTI Abnormal complete blood count with differential will order peripheral smear and LDH Thrombocytosis Plan: Pain control Bowel regimen Supportive care 03/31/2021: Continue antibiotics Pain control 04/01/2021: Continue empiric antibiotics Supportive care 04/02/2021: Peripheral smear no pathological issue Monitor for fever 04/03/2021: Repeat labs Follow thrombocytosis 04/04/2021: Supportive care Pain control 04/05/2021: Supportive care 04/06/2021: Supportive care Pain control (1) Closed left acetabular fracture Status: Acute CLAUDIA KELLY DO Apr 06, 2021 08:45
[2021-04-06] MEDS: polyethylene glycoL POWDER 17 GM (MIRALAX) PACK PO SCH ×2 (09:21→21:28)
--- NOTE | 2021-04-06 10:21 | Physical Therapy Daily Note ---
PT Daily Note-Current Subjective Pt. agrees to Rx. States he is amazed at how well he is doing and ready to plan to go home on Wed Pain Location: No Pain Reported Mental Status Patient Orientation: Normal For Age Transfers SCALE: Activities may be completed with or without assistive devices. 3-Llnxzcrlfh-nudrriq completes the activity by him/herself with no assistance from a helper. 5-Set-up or Clean-up Assistance-helper sets up or cleans up; patient completes activity. Brea assists only prior to or following the activity. 4-Supervision or Touching Assistance-helper provides verbal cues and/or touching/steadying and/or contact guard assistance as patient completes activity. Assistance may be provided throughout the activity or intermittently. 3-Partial/Moderate Assistance-helper does LESS THAN HALF the effort. Brea lifts, holds or supports trunk or limbs, but provides less than half the effort. 2-Substantial/Maximal Assistance-helper does MORE THAN HALF the effort. Brea lifts or holds trunk or limbs and provides more than half the effort. 8-Ggnkrddxn-aspblf does ALL the effort. Patient does none of the effort to complete the activity. Or, the assistance of 2 or more helpers is required for the patient to complete the activity. If activity was not attempted, code reason: 7-Patient Refused. 9-Not Applicable-not attempted and the patient did not perform the activity before the current illness, exacerbation or injury. 10-Not Attempted due to Environmental Limitations-(lack of equipment, weather restraints, etc.). 88-Not Attempted due to Medical Conditions or Safety Concerns. Sit to Stand (QC): 5 Chair/Ana-mr-Rrgpd Xfer(QC): 5 Weight Bearing Left Lower Extremity: Left Non Weight Bearing Gait Training Does the Patient Walk?: Yes Walk 10 feet (QC): 5 Walk 50 ft with 2 Turns(QC): 5 Gait Persons Needed: 1 Gait Assistive Device: FWW maintains NWBing L, improved endurance Wheelchair Training Does the Pt Use a Wheelchair?: Yes Wheel 50 ft with 2 turns (QC): 6 Wheel 150 ft (QC): 6 Type of Wheelchair: Manual pt. was instructed in and demonstrated indep and proficiency in up down ramp on w/c approx 50 ft each forward and backward ascending ramp, forward only going down ramp with good control Exercises Seated Therapy Exercises: Ankle pumps, Sit to stand, Long arc quads, Hip flexion, Hip abd/add Seated Reps: 15 NuStep Minutes: 10 NuStep Workload: 5 Treatments w/c mob on ramp, seated LE ex and Nustep, gait with FWW NWB L Assessment Current Status: Good Progress DC plausible for Wed from PT stnadpoint PT Short Term Goals Short Term Goals Time Frame: Apr 06, 2021 Roll Left & Right: 4 (SBA) Sit to lyin (CGA) Lying to sitting on side of be: 3 (Peyton) Sit to stand: 4 (SBA) Chair/jua-xi-lgcrs transfer: 4 (SBA) Walk 10 feet: 4 PT Cylinder Die Machine Operator Goals Cylinder Die Machine Operator Goals PT Cylinder Die Machine Operator Goals Time Frame: Apr 20, 2021 Roll Left & Right (QC): 5 Sit to Lying (QC): 4 Lying-Sitting on Side/Bed(QC): 4 Sit to Stand (QC): 4 Chair/Crd-hc-Nrpht Xfer(QC): 4 Toilet Transfer (QC): 4 Car Transfer (QC): 4 Does the Patient Walk: Yes Walk 10 feet (QC): 4 Walk 50ft with 2 Turns (QC): 4 Walk 150 ft (QC): 88 Walking 10ft on Uneven Surface: 4 1 Step (curb) (QC): 4 4 Steps (QC): 88 12 Steps (QC): 88 Picking up an Object (QC): 6 Wheel 50 feet with 2 turns (QC: 6 Wheel 150 feet: 6 PT Plan Treatment/Plan Treatment Plan: Continue Plan of Care Treatment Plan: Bed Mobility, Education, Functional Activity Nena, Functional Strength, Gait, Safety, Therapeutic Exercise, Transfers Treatment Duration: Apr 20, 2021 Frequency: At least 5 of 7 days/Wk (IRF) Estimated Hrs Per Day: 1.5 hours per day Patient and/or Family Agrees t: Yes Safety Risks/Education Patient Education: Gait Training, Transfer Techniques, Correct Positioning, W/C Management, Disease Process, Safety Issues Teaching Recipient: Patient Teaching Methods: Demonstration, Discussion Response to Teaching: Verbalize Understanding, Return Demonstration, Reinforcement Needed Time/GCodes Time In: 930 Time Out: 1015 Total Billed Treatment Time: 45 Total Billed Treatment 1,w/c15,EX15,GT15 ZENY AIKEN ENGRAVER [employer]ATE Apr 06, 2021 10:21
--- NOTE | 2021-04-06 11:38 | Occupational Ther Daily Note ---
OT Current Status-Daily Note Subjective Pt up in recliner, agreeable to OT Tx. Pt does not verbalize pain during session. Mental Status/Objective Patient Orientation: Person, Place, Time, Situation ADL-Treatment Therapy Code Descriptions/Definitions Functional [place] Measure: 0=Not Assessed/NA 4=Minimal Assistance 1=Total Assistance 5=Supervision or Setup 2=Maximal Assistance 6=Modified [place] 3=Moderate Assistance 7=Complete IndependenceSCALE: Activities may be completed with or without assistive devices. 3-Xomtgqoqsn-zyorffe completes the activity by him/herself with no assistance from a helper. 5-Set-up or Clean-up Assistance-helper sets up or cleans up; patient completes activity. [place] assists only prior to or following the activity. 4-Supervision or Touching Assistance-helper provides verbal cues and/or touch ing/steadying and/or contact guard assistance as patient completes activity. Assistance may be provided throughout the activity or intermittently. 3-Partial/Moderate Assistance-helper does LESS THAN HALF the effort. Ronan lifts, holds or supports trunk or limbs, but provides less than half the effort. 2-Substantial/Maximal Assistance-helper does MORE THAN HALF the effort. Ronan lifts or holds trunk or limbs and provides more than half the effort. 2-Gwzdoxtjl-yhjxof does ALL the effort. Patient does none of the effort to complete the activity. Or, the assistance of 2 or more helpers is required for the patient to complete the activity. If activity was not attempted, code reason: 7-Patient Refused. 9-Not Applicable-not attempted and the patient did not perform the activity before the current illness, exacerbation or injury. 10-Not Attempted due to Environmental Limitations-(lack of equipment, weather restraints, etc.). 88-Not Attempted due to Medical Conditions or Safety Concerns. Eating (QC): 6 Oral Hygiene (QC): 6 Shower/Bathe Self (QC): 5 (set up ) Upper Body Dressing (QC): 5 Lower Body Dressing (QC): 5 On/Off Footwear: 3 (Mod A. Pt able to doff L gripp sock and R shoe. OT donned tedhose, pt able to don R shoe.) Toileting Hygiene (QC): 5 (set up, pt able to manage clothing and hygiene.) Other Treatment Pt seated in recliner, used FWW to transfer to w/c, set up assist. Pt taken into bathroom, transferred into shower using GBs. Pt doffed clothes, completed shower, then transferred to w/c to don clothes. Pt sat at sink to complete oral care and grooming. Pt propelled w/c to therapy gym. In order to increase BUE strength and activity tolerance, pt completed arm bike, 25 Watt resistance x10 mins. Pt propelled w/c back to room. Post tx, pt up in recliner, call light in reach and all needs met. Education OT Patient Education: Correct positioning, Energy conservation, Exercise program, Modified ADL techniques, Progress toward Goal/Update tx plan, Purpose of tx/functional activities, Rehab process Teaching Recipient: Patient Teaching Methods: Discussion Response to Teaching: Verbalize Understanding OT Short Term Goals Short Term Goals Time Frame: Apr 10, 2021 Shower/bathe self: 4 Lower body dressin Putting on/taking off footwear: 4 OT Halfway Goals Halfway Goals Time Frame: Apr 17, 2021 Eating (QC): 6 (met) Oral Hygiene (QC): 6 (met) Toileting Hygiene (QC): 6 Shower/Bathe Self (QC): 5 (met) Upper Body Dressing (QC): 5 (met) Lower Body Dressing (QC): 5 (met) On/Off Footwear (QC): 5 Additional Goals: 1-Demonstrate ADL Tasks, 2-Verbalize Understanding, 3- ImproveStrength/Nena 1=Demonstrate adherence to instructed precautions during ADL tasks. 2=Patient will verbalize/demonstrate understanding of assistive devices/modifications for ADL. 3=Patient will improve strength/tolerance for activity to enable patient to perform ADL's. OT Education/Plan Problem List/Assessment Assessment: Decreased Activ Tolerance, Impaired Funct Balance, Impaired I ADL's Discharge Recommendations Plan/Recommendations: Continue POC Treatment Plan/Plan of Care Patient would benefit from OT for education, treatment and training to promote independence in ADL's, mobility, safety and/or upper extremity function for A DL's. Plan of Care: ADL Retraining, Functional Mobility, Group Exercise/Act as Ind, UE Funct Exercise/Act Treatment Duration: Apr 17, 2021 Frequency: At least 5 of 7 days/Wk (IRF) Estimated Hrs Per Day: 1.5 hours per day Rehab Potential: Fair Time/GCodes Start Time: 10:45 Stop Time: 11:45 Total Time Billed (hr/min): 60 Billed Treatment Time 1, ADL 3 (45'), EX (15') GUILLAUME ALMEIDA OT Apr 06, 2021 11:37
--- NOTE | 2021-04-06 13:41 | Occupational Ther Daily Note ---
OT Current Status-Daily Note Subjective Pt up in recliner, agreeable to OT Tx. ADL-Treatment Therapy Code Descriptions/Definitions Functional [place] Measure: 0=Not Assessed/NA 4=Minimal Assistance 1=Total Assistance 5=Supervision or Setup 2=Maximal Assistance 6=Modified [place] 3=Moderate Assistance 7=Complete IndependenceSCALE: Activities may be completed with or without assistive devices. 2-Fbbbryhusw-dmaohys completes the activity by him/herself with no assistance from a helper. 5-Set-up or Clean-up Assistance-helper sets up or cleans up; patient completes activity. [place] assists only prior to or following the activity. 4-Supervision or Touching Assistance-helper provides verbal cues and/or touching/steadying and/or contact guard assistance as patient completes activity. Assistance may be provided throughout the activity or intermittently. 3-Partial/Moderate Assistance-helper does LESS THAN HALF the effort. [place] lifts, holds or supports trunk or limbs, but provides less than half the effort. 2-Substantial/Maximal Assistance-helper does MORE THAN HALF the effort. [place] lifts or holds trunk or limbs and provides more than half the effort. 3-Vtrvcniev-zzvfuh does ALL the effort. Patient does none of the effort to co mplete the activity. Or, the assistance of 2 or more helpers is required for the patient to complete the activity. If activity was not attempted, code reason: 7-Patient Refused. 9-Not Applicable-not attempted and the patient did not perform the activity before the current illness, exacerbation or injury. 10-Not Attempted due to Environmental Limitations-(lack of equipment, weather restraints, etc.). 88-Not Attempted due to Medical Conditions or Safety Concerns. Other Treatment Pt transferred from recliner to w/c, FWW, set up assist. Pt propelled w/c to a bathroom, where he practices tub transfer using extended bath bench. Pt completed transfer, min A to lift LLE in/out of tub. Pt then propelled w/c around [facility] common area. Pt taken into therapy gym, completed nut/bolt task to increase activity tolerance. Pt propelled w/c back to his room. Post tx, pt up in w/c, call light in reach and all needs met. Education OT Patient Education: Correct positioning, Energy conservation, Exercise program, Modified ADL techniques, Progress toward Goal/Update tx plan, Purpose of tx/functional activities, Rehab process, Safety issues, Transfer techniques Teaching Recipient: Patient Teaching Methods: Discussion Response to Teaching: Verbalize Understanding OT Short Term Goals Short Term Goals Time Frame: Apr 10, 2021 Shower/bathe self: 4 Lower body dressin Putting on/taking off footwear: 4 OT Electric Sealing Machine Operator Goals Care Home Goals Time Frame: Apr 17, 2021 Eating (QC): 6 (met) Oral Hygiene (QC): 6 (met) Toileting Hygiene (QC): 6 Shower/Bathe Self (QC): 5 (met) Upper Body Dressing (QC): 5 (met) Lower Body Dressing (QC): 5 (met) On/Off Footwear (QC): 5 Additional Goals: 1-Demonstrate ADL Tasks, 2-Verbalize Understanding, 3- ImproveStrength/Nena 1=Demonstrate adherence to instructed precautions during ADL tasks. 2=Patient will verbalize/demonstrate understanding of assistive devices/modifications for ADL. 3=Patient will improve strength/tolerance for activity to enable patient to perform ADL's. OT Education/Plan Problem List/Assessment Assessment: Decreased Activ Tolerance, Impaired Funct Balance, Impaired I ADL's Discharge Recommendations Plan/Recommendations: Continue POC Treatment Plan/Plan of Care Patient would benefit from OT for education, treatment and training to promote independence in ADL's, mobility, safety and/or upper extremity function for ADL's. Plan of Care: ADL Retraining, Functional Mobility, Group Exercise/Act as Ind, UE Funct Exercise/Act Treatment Duration: Apr 17, 2021 Frequency: At least 5 of 7 days/Wk (IRF) Estimated Hrs Per Day: 1.5 hours per day Rehab Potential: Fair Time/GCodes Start Time: 13:00 Stop Time: 13:30 Total Time Billed (hr/min): 30 Billed Treatment Time 1, FA 2 (30') GUILLAUME ALMEIDA OT Apr 06, 2021 13:41
--- NOTE | 2021-04-06 14:35 | Physical Therapy Daily Note ---
PT Daily Note-Current Subjective Pt. and present discussing which day would be best to DC. Collectively decide Wed is best. requests some training and observation time for tub TRF and car TRF. Pt. agrees to all Rx Pain Location: No Pain Reported Mental Status Patient Orientation: Normal For Age Transfers SCALE: Activities may be completed with or without assistive devices. 6-Qicrgakpyl-sfnqawh completes the activity by him/herself with no assistance from a helper. 5-Set-up or Clean-up Assistance-helper sets up or cleans up; patient completes activity. [place] assists only prior to or following the activity. 4-Supervision or Touching Assistance-helper provides verbal cues and/or touching/steadying and/or contact guard assistance as patient completes activity. Assistance may be provided throughout the activity or intermittently. 3-Partial/Moderate Assistance-helper does LESS THAN HALF the effort. [place] lifts, holds or supports trunk or limbs, but provides less than half the effort. 2-Substantial/Maximal Assistance-helper does MORE THAN HALF the effort. [place] lifts or holds trunk or limbs and provides more than half the effort. 4-Kjfdnxjqf-layaju does ALL the effort. Patient does none of the effort to complete the activity. Or, the assistance of 2 or more helpers is required for the patient to complete the activity. If activity was not attempted, code reason: 7-Patient Refused. 9-Not Applicable-not attempted and the patient did not perform the activity before the current illness, exacerbation or injury. 10-Not Attempted due to Environmental Limitations-(lack of equipment, weather restraints, etc.). 88-Not Attempted due to Medical Conditions or Safety Concerns. Sit to Lying (QC): 4 Lying to Sitting/Side of Bed(Q: 4 2 trials on sup to sit to sup SBA, 1 trial min assist. Pt. uses R foot to support LLE and moves in fluid movement up and down with direction and uses FWW at side of rx table to hold for support. present for car TRF and shares height of car etc. with demonstration and instruction and pt. TRFd in ut vehicle with assisting pt. with LEs maintaining abd limits Weight Bearing Left Lower Extremity: Left Non Weight Bearing Gait Training Does the Patient Walk?: Yes Gait Assistive Device: FWW 50-60 ft x 2 CGA, trained in use of gait belt and how to protect and guard pt. during gait Wheelchair Training mod I Exercises Supine Ex: Ankle pumps, Quad Set, Rolling, Glut sets, Heel Slides (assisted left), Short Arc Quads, Scooting, Straight leg raise (assisted left) Supine Reps: 15 Treatments tub TRF, car TRF, gait, sup to sit to sup TRF, LE therex, w/c mob Assessment Current Status: Good Progress good progress in all phases of Rx, meeting goals, DC planned for Wed PT Short Term Goals Short Term Goals Time Frame: Apr 06, 2021 Roll Left & Right: 4 (SBA) Sit to lyin (CGA) Lying to sitting on side of be: 3 (Peyton) Sit to stand: 4 (SBA) Chair/pwt-dm-oybol transfer: 4 (SBA) Walk 10 feet: 4 PT Usp Goals Usp Goals PT Director Of Pediatric Rehabilitation Goals Time Frame: Apr 20, 2021 Roll Left & Right (QC): 5 Sit to Lying (QC): 4 Lying-Sitting on Side/Bed(QC): 4 Sit to Stand (QC): 4 Chair/Ziy-gg-Pzuim Xfer(QC): 4 Toilet Transfer (QC): 4 Car Transfer (QC): 4 Does the Patient Walk: Yes Walk 10 feet (QC): 4 Walk 50ft with 2 Turns (QC): 4 Walk 150 ft (QC): 88 Walking 10ft on Uneven Surface: 4 1 Step (curb) (QC): 4 4 Steps (QC): 88 12 Steps (QC): 88 Picking up an Object (QC): 6 Wheel 50 feet with 2 turns (QC: 6 Wheel 150 feet: 6 PT Plan Treatment/Plan Treatment Plan: Continue Plan of Care Treatment Plan: Bed Mobility, Education, Functional Activity Nena, Functional Strength, Gait, Safety, Therapeutic Exercise, Transfers Treatment Duration: Apr 20, 2021 Frequency: At least 5 of 7 days/Wk (IRF) Estimated Hrs Per Day: 1.5 hours per day Patient and/or Family Agrees t: Yes Safety Risks/Education Patient Education: Gait Training, Transfer Techniques, Correct Positioning, Instructions to Caregiver, Disease Process, Safety Issues Teaching Recipient: Patient, Family Teaching Methods: Demonstration, Discussion Response to Teaching: Verbalize Understanding, Return Demonstration, Reinforcement Needed Time/GCodes Time In: 1345 Time Out: 1430 Total Billed Treatment Time: 45 Total Billed Treatment 1,EX15m,FA20m,GT10m ZENY AIKEN CHEMICAL LABORATORY CHIEF Apr 06, 2021 14:35
[2021-04-06 19:48] VITALS: BP 106/65
[2021-04-06] MEDS: ROSUVASTATIN 20 MG (CRESTOR) TABLET PO SCH (21:22)
[2021-04-06] MEDS: FINASTERIDE (PROSCAR) 5 MG TAB PO SCH (21:23)
[2021-04-06] MEDS: amLODIPine 5 MG (NORVASC) TAB PO SCH (21:23)
--- NOTE | 2021-04-07 05:58 | PM&R Progress Note ---
Subjective HPI/CC On Admission Date Seen by Provider: Apr 07, 2021 Time Seen by Provider: 11:00 Subjective/Events-last exam 04/07/2021: Pt is looking forward to DC tomorrow Will DC severo Eliquis started 5mg twice daily and will send that to [facility] for coupons 04/06/2021: Pt doing really well Incision appears to be slightly red so Dr. Calderon will be contacted Appointment in one week with Dr. Calderon Ready to go home Tuesday04/05/2021: Patient doing well Pain is well controlled Finishing up on antibiotics inquired about Eliquis prescription 04/04/2021: Patient doing very well Overall very improved UTI with Enterococcus noted Augmentin tolerated Platelet count elevated which is concerning but could be due to the traumatic bone fractures that will take months to heal ultimately be concerning for bone infection if continues 04/03/2021: Pt doing well called and asked about repeat labs so will defer that to PCP Bowels re moving Tylenol ordered Incision looks good 04/02/2021: Pt doing well Had a very low grade fever once Bowels are moving Taking only Tylenol Checked meds and labs 04/01/2021: Pt doing well Bowels moved this morning No complaints No fever Norvasc held due to BP of 95/54 Zithromax and Rocephin maintained empirically 03/31/2021: Pt doing well Still remains tachycardic No fever Procalcitonin of 0.23 Could be a bronchial component since CXR and urine were both negative Overall doing much better at bedside Review of Systems General: Fatigue, Malaise Musculoskeletal: leg pain Objective Exam Vital Signs Vital Signs Date Time Temp Pulse Resp B/P (MAP) Pulse Ox O2 Delivery O2 Flow Rate FiO2 04/07/21 21:17 97 Room Air 04/07/21 20:19 36.9 82 18 96/59 (71) Capillary Refill : General Appearance: No Apparent Distress, WD/WN HEENT: PERRL/EOMI, Normal ENT Inspection, Pharynx Normal Neck: Full Range of Motion, Normal Inspection, Non Tender, Supple, Carotid Bruit Respiratory: Chest Non Tender, Lungs Clear, Normal Breath Sounds, No Accessory Muscle Use, No Respiratory Distress Cardiovascular: Regular Rate, Rhythm, No Edema, No Gallop, No JVD, No Murmur, Normal Peripheral Pulses Gastrointestinal: Normal Bowel Sounds, No Organomegaly, No Pulsatile Mass, Non Tender, Soft Back: Normal Inspection, No CVA Tenderness, No Vertebral Tenderness Extremity: Normal Capillary Refill, Normal Inspection, Normal Range of Motion (Except lower extremities due to pain), Non Tender, No Calf Tenderness, No Pedal Edema Neurologic/Psychiatric: Alert, Oriented x3, No Motor/Sensory Deficits, Normal Mood/Affect Skin: Normal Color, Warm/Dry Lymphatic: No Adenopathy Results/Procedures Lab Patient resulted labs reviewed. FIM Transfers Therapy Code Descriptions/Definitions Functional [place] Measure: 0=Not Assessed/NA 4=Minimal Assistance 1=Total Assistance 5=Supervision or Setup 2=Maximal Assistance 6=Modified [place] 3=Moderate Assistance 7=Complete IndependenceSCALE: Activities may be completed with or without assistive devices. 9-Oylnvwkkgp-qkkmbko completes the activity by him/herself with no assistance from a helper. 5-Set-up or Clean-up Assistance-helper sets up or cleans up; patient completes activity. [place] assists only prior to or following the activity. 4-Supervision or Touching Assistance-helper provides verbal cues and/or touching/steadying and/or contact guard assistance as patient completes activity. Assistance may be provided throughout the activity or intermittently. 3-Partial/Moderate Assistance-helper does LESS THAN HALF the effort. [place] lifts, holds or supports trunk or limbs, but provides less than half the effort. 2-Substantial/Maximal Assistance-helper does MORE THAN HALF the effort. [place] lifts or holds trunk or limbs and provides more than half the effort. 5-Rdgbmwzpi-zjpqyi does ALL the effort. Patient does none of the effort to comp lete the activity. Or, the assistance of 2 or more helpers is required for the patient to complete the activity. If activity was not attempted, code reason: 7-Patient Refused. 9-Not Applicable-not attempted and the patient did not perform the activity before the current illness, exacerbation or injury. 10-Not Attempted due to Environmental Limitations-(lack of equipment, weather restraints, etc.). 88-Not Attempted due to Medical Conditions or Safety Concerns. Roll Left to Right (QC): 4 Sit to Lying (QC): 4 Sit to Stand (QC): 5 Chair/Gtv-yh-Iogud Xfer(QC): 5 Car Transfer (QC): 3 Gait Training Does the Patient Walk?: Yes Walk 10 feet (QC): 5 Walk 50 ft with 2 Turns(QC): 5 Walk 150 ft (QC): 88 Walking 10ft/uneven surface-QC: 88 Gait Persons Needed: 1 Gait Assistive Device: FWW Wheelchair Training Does the Pt Use a Wheelchair?: Yes Distance: 150' Wheel 50 ft with 2 turns (QC): 6 Wheel 150 ft (QC): 6 Type of Wheelchair: Manual Stair Training 1 Step (curb) (QC): 88 4 Steps (QC): 88 12 Steps (QC): 88 Balance Picking up an Object (QC): 4 ADL-Treatment Eating (QC): 6 Oral Hygiene (QC): 6 Shower/Bathe Self (QC): 5 (set up ) Upper Body Dressing (QC): 5 Lower Body Dressing (QC): 5 On/Off Footwear (QC): 3 (Mod A. Pt able to doff L gripp sock and R shoe. OT donned tedhose, pt able to don R shoe.) Toileting Hygiene (QC): 5 (set up, pt able to manage clothing and hygiene.) Assessment/Plan Assessment and Plan Assess & Plan/Chief Complaint Assessment: Fall from ladder Bilateral acetabular fractures Acute pulmonary embolism placed on anticoagulation History of atrial fibrillation status post ablation Fever of 102.5 upon admission to inpatient rehab unit negative except for white count of 19,000 placed on antibiotics empirically urine culture revealed UTI Abnormal complete blood count with differential will order peripheral smear and LDH Thrombocytosis Plan: Pain control Bowel regimen Supportive care 03/31/2021: Continue antibiotics Pain control 04/01/2021: Continue empiric antibiotics Supportive care 04/02/2021: Peripheral smear no pathological issue Monitor for fever 04/03/2021: Repeat labs Follow thrombocytosis 04/04/2021: Supportive care Pain control 04/05/2021: Supportive care 04/06/2021: Supportive care Pain control 04/07/2021: Continue current treatment Sydniquis sent to [facility] (1) Closed left acetabular fracture Status: Acute CLAUDIA KELLY DO Apr 07, 2021 05:58
[2021-04-07] MEDS: ACETAMINOPHEN 325 MG TABLET PO PRN (06:24)
[2021-04-07 07:43] VITALS: BP 106/61
[2021-04-07] MEDS: MAGNESIUM OXIDE (MAG-OX)400 MG TAB PO SCH ×2 (08:24→21:01)
[2021-04-07] MEDS: APIXABAN 5 MG (ELIQUIS) TABLET PO SCH ×2 (08:24→21:00)
[2021-04-07] MEDS: LACTOBACILLUS ACIDOPHILUS (PROBIOTIC) CAPSULE PO SCH ×3 (08:24→18:47)
[2021-04-07] MEDS: PANTOPRAZOLE 20 MG TABLET (PROTONIX) PO SCH ×2 (08:24→21:01)
[2021-04-07] MEDS: LORATADINE (CLARITIN) 10 MG TAB PO SCH (08:24)
[2021-04-07] MEDS: ASPIRIN E.C. 81 MG (ECOTRIN) TAB PO SCH (08:24)
[2021-04-07] MEDS: VITAMIN D3 25 MCG (1,000 UNITS) TABLET PO SCH (08:24)
[2021-04-07] MEDS: SENNA W/DOCUSATE (SENOKOT S) TABLET PO SCH ×2 (09:05→21:01)
[2021-04-07] MEDS: DOCUSATE SODIUM 100 MG (COLACE) CAP PO SCH ×2 (09:05→21:01)
[2021-04-07] MEDS: polyethylene glycoL POWDER 17 GM (MIRALAX) PACK PO SCH ×2 (09:05→21:02)
--- NOTE | 2021-04-07 09:37 | Physical Therapy Daily Note ---
PT Daily Note-Current Subjective Pt. agrees to Rx, feels he has made significant progress and is ready to DC. Pain Location: No Pain Reported Mental Status Patient Orientation: Normal For Age Transfers SCALE: Activities may be completed with or without assistive devices. 5-Mfdzwhwnel-pgejhrb completes the activity by him/herself with no assistance from a helper. 5-Set-up or Clean-up Assistance-helper sets up or cleans up; patient completes activity. [place] assists only prior to or following the activity. 4-Supervision or Touching Assistance-helper provides verbal cues and/or touching/steadying and/or contact guard assistance as patient completes activity. Assistance may be provided throughout the activity or intermittently. 3-Partial/Moderate Assistance-helper does LESS THAN HALF the effort. [place] lifts, holds or supports trunk or limbs, but provides less than half the effort. 2-Substantial/Maximal Assistance-helper does MORE THAN HALF the effort. [place] lifts or holds trunk or limbs and provides more than half the effort. 6-Xvksxkudk-diwepo does ALL the effort. Patient does none of the effort to com plete the activity. Or, the assistance of 2 or more helpers is required for the patient to complete the activity. If activity was not attempted, code reason: 7-Patient Refused. 9-Not Applicable-not attempted and the patient did not perform the activity before the current illness, exacerbation or injury. 10-Not Attempted due to Environmental Limitations-(lack of equipment, weather restraints, etc.). 88-Not Attempted due to Medical Conditions or Safety Concerns. Roll Left & Right (QC): 6 Sit to Lying (QC): 6 Lying to Sitting/Side of Bed(Q: 6 Sit to Stand (QC): 6 Chair/Day-wz-Bbogy Xfer(QC): 6 Weight Bearing Left Lower Extremity: Left Non Weight Bearing Gait Training Does the Patient Walk?: Yes Walk 10 feet (QC): 5 Gait Persons Needed: 1 Gait Assistive Device: FWW 25ftx2 10 ft x 1 CGA to SBA Wheelchair Training Does the Pt Use a Wheelchair?: Yes Wheel 50 ft with 2 turns (QC): 6 Wheel 150 ft (QC): 6 Type of Wheelchair: Manual Exercises Supine Ex: Ankle pumps, Quad Set, Heel Slides, Short Arc Quads, Scooting, Stra ight leg raise Supine Reps: 15 Treatments emphasis on TRFs in out bed sit to sup ans dup to sit using RLE to assist LLE in out bed with good progress, indep 3/4 trials Assessment Current Status: Good Progress meets goals, pt. 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 has had several cortisone injections and will plan a TKR in future, this BACKPACKERS MANAGER trying to protect RLE for duration of pts NWB and healing status PT Short Term Goals Short Term Goals Time Frame: Apr 06, 2021 Roll Left & Right: 4 (SBA) Sit to lyin (CGA) Lying to sitting on side of be: 3 (Peyton) Sit to stand: 4 (SBA) Chair/ymv-hp-imais transfer: 4 (SBA) Walk 10 feet: 4 PT Nursing Home Goals Pl[employer] Production Machine Setter Goals PT Plastic Production Machine Setter Goals Time Frame: Apr 20, 2021 Roll Left & Right (QC): 5 Sit to Lying (QC): 4 Lying-Sitting on Side/Bed(QC): 4 Sit to Stand (QC): 4 Chair/Kld-ec-Dmbyv Xfer(QC): 4 Toilet Transfer (QC): 4 Car Transfer (QC): 4 Does the Patient Walk: Yes Walk 10 feet (QC): 4 Walk 50ft with 2 Turns (QC): 4 Walk 150 ft (QC): 88 Walking 10ft on Uneven Surface: 4 1 Step (curb) (QC): 4 4 Steps (QC): 88 12 Steps (QC): 88 Picking up an Object (QC): 6 Wheel 50 feet with 2 turns (QC: 6 Wheel 150 feet: 6 PT Plan Treatment/Plan Treatment Plan: Continue Plan of Care Treatment Plan: Bed Mobility, Education, Functional Activity Nena, Functional Strength, Gait, Safety, Therapeutic Exercise, Transfers Treatment Duration: Apr 20, 2021 Frequency: At least 5 of 7 days/Wk (IRF) Estimated Hrs Per Day: 1.5 hours per day Patient and/or Family Agrees t: Yes Safety Risks/Education Patient Education: Gait Training, Transfer Techniques, Correct Positioning, W/C Management, Disease Process, Safety Issues Teaching Recipient: Patient Teaching Methods: Demonstration, Discussion Response to Teaching: Verbalize Understanding, Return Demonstration, Reinforcement Needed Time/GCodes Time In: 845 Time Out: 930 Total Billed Treatment Time: 45 Total Billed Treatment 1,FA20m,GT10m,EX15m ZENY AIKEN BACKPACKERS MANAGER Apr 07, 2021 09:37
--- NOTE | 2021-04-07 09:51 | Occupational Ther Daily Note ---
OT Current Status-Daily Note Subjective Pt up in recliner, agreeable to OT Tx. Pt denies pain. Mental Status/Objective Patient Orientation: Normal For Age ADL-Treatment Therapy Code Descriptions/Definitions Functional [place] Measure: 0=Not Assessed/NA 4=Minimal Assistance 1=Total Assistance 5=Supervision or Setup 2=Maximal Assistance 6=Modified [place] 3=Moderate Assistance 7=Complete IndependenceSCALE: Activities may be completed with or without assistive devices. 4-Ljhrpgsnju-ttstikx completes the activity by him/herself with no assistance from a helper. 5-Set-up or Clean-up Assistance-helper sets up or cleans up; patient completes activity. [place] assists only prior to or following the activity. 4-Supervision or Touching Assistance-helper provides verbal cues and/or touching/steadying and/or contact guard assistance as patient completes activity. Assistance may be provided throughout the activity or intermittently. 3-Partial/Moderate Assistance-helper does LESS THAN HALF the effort. [place] lifts, holds or supports trunk or limbs, but provides less than half the effort. 2-Substantial/Maximal Assistance-helper does MORE THAN HALF the effort. [place] lifts or holds trunk or limbs and provides more than half the effort. 7-Gfzlyhqhj-kiippg does ALL the effort. Patient does none of the effort to complete the activity. Or, the assistance of 2 or more helpers is required for the patient to complete the activity. If activity was not attempted, code reason: 7-Patient Refused. 9-Not Applicable-not attempted and the patient did not perform the activity before the current illness, exacerbation or injury. 10-Not Attempted due to Environmental Limitations-(lack of equipment, weather restraints, etc.). 88-Not Attempted due to Medical Conditions or Safety Concerns. Other Treatment Pt transferred from recliner to w/c, mod I using FWW. Pt propelled w/c to therapy gym. OT tx with focus on increasing BUE strength and activity tolerance. Pt completed arm bike, 25 Watt resistance x15 mins, no rest breaks. Pt placed/removed 1" pegs from foam pegboard, 2lb wrist weight BUEs. Pt completed ring arc x2 BUEs, 2lb wrist weights BUEs, crossing midline. Pt wanted to show his son how he is able to maneuver a ramp. Pt propelled w/c to elevators, down to 1st floor, up/down ramp, then back up to 2nd floor and to his room. Pt needed minimal rest breaks with w/c mobility. Pt transferred to recliner using FWW, mod I. Post tx, pt in recliner, call light in reach and all needs met. Education OT Patient Education: Correct positioning, Energy conservation, Exercise program, Modified ADL techniques, Progress toward Goal/Update tx plan, Purpose of tx/functional activities, Rehab process Teaching Recipient: Patient Teaching Methods: Demonstration, Discussion Response to Teaching: Verbalize Understanding, Return Demonstration OT Short Term Goals Short Term Goals Time Frame: Apr 10, 2021 Shower/bathe self: 4 Lower body dressin Putting on/taking off footwear: 4 OT Radiation Oncology Nurse Goals Skilled Nursing Goals Time Frame: Apr 17, 2021 Eating (QC): 6 (met) Oral Hygiene (QC): 6 (met) Toileting Hygiene (QC): 6 Shower/Bathe Self (QC): 5 (met) Upper Body Dressing (QC): 5 (met) Lower Body Dressing (QC): 5 (met) On/Off Footwear (QC): 5 Additional Goals: 1-Demonstrate ADL Tasks, 2-Verbalize Understanding, 3- ImproveStrength/Nena 1=Demonstrate adherence to instructed precautions during ADL tasks. 2=Patient will verbalize/demonstrate understanding of assistive devices/modifications for ADL. 3=Patient will improve strength/tolerance for activity to enable patient to perform ADL's. OT Education/Plan Problem List/Assessment Assessment: Decreased Activ Tolerance, Impaired I ADL's, Impaired Self-Care Skills Discharge Recommendations Plan/Recommendations: Continue POC Treatment Plan/Plan of Care Patient would benefit from OT for education, treatment and training to promote independence in ADL's, mobility, safety and/or upper extremity function for ADL's. Plan of Care: ADL Retraining, Functional Mobility, Group Exercise/Act as Ind, UE Funct Exercise/Act Treatment Duration: Apr 17, 2021 Frequency: At least 5 of 7 days/Wk (IRF) Estimated Hrs Per Day: 1.5 hours per day Rehab Potential: Fair Time/GCodes Start Time: 09:30 Stop Time: 10:30 Total Time Billed (hr/min): 60 Billed Treatment Time 1, EX (15'), FA 3 (45') GUILLAUME ALMEIDA OT Apr 07, 2021 09:51
[2021-04-07] MEDS ORDERED: OXC5T PO (11:11)
[2021-04-07] MEDS ORDERED: APIX5TAB PO (11:11)
--- NOTE | 2021-04-07 11:47 | Occupational Ther Daily Note ---
OT Current Status-Daily Note Subjective Pt up in recliner, agreeable to OT Tx. ADL-Treatment Therapy Code Descriptions/Definitions Functional [place] Measure: 0=Not Assessed/NA 4=Minimal Assistance 1=Total Assistance 5=Supervision or Setup 2=Maximal Assistance 6=Modified [place] 3=Moderate Assistance 7=Complete IndependenceSCALE: Activities may be completed with or without assistive devices. 9-Hlbhzqfhip-ymufwwb completes the activity by him/herself with no assistance from a helper. 5-Set-up or Clean-up Assistance-helper sets up or cleans up; patient completes activity. [place] assists only prior to or following the activity. 4-Supervision or Touching Assistance-helper provides verbal cues and/or touching/steadying and/or contact guard assistance as patient completes activity. Assistance may be provided throughout the activity or intermittently. 3-Partial/Moderate Assistance-helper does LESS THAN HALF the effort. [place] lifts, holds or supports trunk or limbs, but provides less than half the effort. 2-Substantial/Maximal Assistance-helper does MORE THAN HALF the effort. [place] lifts or holds trunk or limbs and provides more than half the effort. 2-Vtdoeanua-tninfc does ALL the effort. Patient does none of the effort to co mplete the activity. Or, the assistance of 2 or more helpers is required for the patient to complete the activity. If activity was not attempted, code reason: 7-Patient Refused. 9-Not Applicable-not attempted and the patient did not perform the activity before the current illness, exacerbation or injury. 10-Not Attempted due to Environmental Limitations-(lack of equipment, weather restraints, etc.). 88-Not Attempted due to Medical Conditions or Safety Concerns. Other Treatment Pt transferred from recliner to w/c, FWW Mod I. Pt propelled w/c to therapy gym. Pt stood at [facility], maintaining NWB LLE. Pt tossed higuera bags to various targets, x3 rounds BUEs. seated rest breaks between rounds. Pt required SBA while tossing with TAVON SANCHEZ supporting pt with FWW. Pt propelled w/c back to his room, transferred to [facility], Mod I using FWW. Pt able to call lunch order in independently. Post tx, pt in recliner, call light in reach and all needs met. Education OT Patient Education: Correct positioning, Energy conservation, Exercise program, Modified ADL techniques, Progress toward Goal/Update tx plan, Purpose of tx/functional activities, Rehab process Teaching Recipient: Patient Teaching Methods: Discussion Response to Teaching: Verbalize Understanding OT Short Term Goals Short Term Goals Time Frame: Apr 10, 2021 Shower/bathe self: 4 Lower body dressin Putting on/taking off footwear: 4 OT Usp Goals Usp Goals Time Frame: Apr 17, 2021 Eating (QC): 6 (met) Oral Hygiene (QC): 6 (met) Toileting Hygiene (QC): 6 (not met) Shower/Bathe Self (QC): 5 (met) Upper Body Dressing (QC): 5 (met) Lower Body Dressing (QC): 5 (met) On/Off Footwear (QC): 5 (not met) Additional Goals: 1-Demonstrate ADL Tasks, 2-Verbalize Understanding, 3- ImproveStrength/Nena 1=Demonstrate adherence to instructed precautions during ADL tasks. 2=Patient will verbalize/demonstrate understanding of assistive devices/modifications for ADL. 3=Patient will improve strength/tolerance for activity to enable patient to perform ADL's. OT Education/Plan Problem List/Assessment Assessment: Decreased Activ Tolerance, Impaired Funct Balance, Impaired I ADL's Discharge Recommendations Plan/Recommendations: Continue POC Treatment Plan/Plan of Care Patient would benefit from OT for education, treatment and training to promote independence in ADL's, mobility, safety and/or upper extremity function for ADL's. Plan of Care: ADL Retraining, Functional Mobility, Group Exercise/Act as Ind, UE Funct Exercise/Act Treatment Duration: Apr 17, 2021 Frequency: At least 5 of 7 days/Wk (IRF) Estimated Hrs Per Day: 1.5 hours per day Rehab Potential: Fair Time/GCodes Start Time: 11:20 Stop Time: 11:50 Total Time Billed (hr/min): 30 Billed Treatment Time 1, FA 2 GUILLAUME ALMEIDA OT Apr 07, 2021 11:46
--- NOTE | 2021-04-07 13:15 | Physical Therapy Daily Note ---
PT Daily Note-Current Subjective Pt. agrees to Rx. Feels he is ready, but wants to practice getting into bed on what would be his side at home . No pain c/o Pain Location: No Pain Reported Mental Status Patient Orientation: Normal For Age Transfers SCALE: Activities may be completed with or without assistive devices. 2-Khwwostulj-inuayyv completes the activity by him/herself with no assistance from a helper. 5-Set-up or Clean-up Assistance-helper sets up or cleans up; patient completes activity. [place] assists only prior to or following the activity. 4-Supervision or Touching Assistance-helper provides verbal cues and/or touching/steadying and/or contact guard assistance as patient completes activity. Assistance may be provided throughout the activity or intermittently. 3-Partial/Moderate Assistance-helper does LESS THAN HALF the effort. [place] lift s, holds or supports trunk or limbs, but provides less than half the effort. 2-Substantial/Maximal Assistance-helper does MORE THAN HALF the effort. [place] lifts or holds trunk or limbs and provides more than half the effort. 4-Fqzhpgsth-lllcbe does ALL the effort. Patient does none of the effort to complete the activity. Or, the assistance of 2 or more helpers is required for the patient to complete the activity. If activity was not attempted, code reason: 7-Patient Refused. 9-Not Applicable-not attempted and the patient did not perform the activity before the current illness, exacerbation or injury. 10-Not Attempted due to Environmental Limitations-(lack of equipment, weather restraints, etc.). 88-Not Attempted due to Medical Conditions or Safety Concerns. sup to sit and sit to sup approaching with his rigt LE into bed, pt. conts to cradle LLE with RLE in out bed and required min to CGA x1 trial out of 3. also practiced SPTs chair to w/c with no FWW SBA to CGA all safe technique Weight Bearing Left Lower Extremity: Left Non Weight Bearing Gait Training Does the Patient Walk?: Yes Gait Assistive Device: FWW 30ft x 3 SBA FWW good control Wheelchair Training [id number] mod I Exercises Supine Ex: Ankle pumps, Quad Set, Heel Slides, Short Arc Quads, Scooting, Straight leg raise Supine Reps: 12 Seated Therapy Exercises: Long arc quads Seated Reps: 15 Treatments in chair after russel Patel Assessment Current Status: Good Progress PT Short Term Goals Short Term Goals Time Frame: Apr 06, 2021 Roll Left & Right: 4 (SBA) Sit to lyin (CGA) Lying to sitting on side of be: 3 ([place]) Sit to stand: 4 (SBA) Chair/wpd-ix-vwomf transfer: 4 (SBA) Walk 10 feet: 4 PT Education Program Associate Goals Education Program Associate Goals PT Education Program Associate Goals Time Frame: Apr 20, 2021 Roll Left & Right (QC): 5 Sit to Lying (QC): 4 Lying-Sitting on Side/Bed(QC): 4 Sit to Stand (QC): 4 Chair/[place] Xfer(QC): 4 Toilet Transfer (QC): 4 Car Transfer (QC): 4 Does the Patient Walk: Yes Walk 10 feet (QC): 4 Walk 50ft with 2 Turns (QC): 4 Walk 150 ft (QC): 88 Walking 10ft on Uneven Surface: 4 1 Step (curb) (QC): 4 4 Steps (QC): 88 12 Steps (QC): 88 Picking up an Object (QC): 6 Wheel 50 feet with 2 turns (QC: 6 Wheel 150 feet: 6 PT Plan Treatment/Plan Treatment Plan: Continue Plan of Care Treatment Plan: Bed Mobility, Education, Functional Activity Nena, Functional Strength, Gait, Safety, Therapeutic Exercise, Transfers Treatment Duration: Apr 20, 2021 Frequency: At least 5 of 7 days/Wk (IRF) Estimated Hrs Per Day: 1.5 hours per day Patient and/or Family Agrees t: Yes Safety Risks/Education Patient Education: Gait Training, Transfer Techniques, Correct Positioning, W/C Management, Disease Process, Safety Issues Teaching Recipient: Patient Teaching Methods: Demonstration, Discussion Response to Teaching: Verbalize Understanding, Return Demonstration, Reinforcement Needed Time/GCodes Time In: 1230 Time Out: 1315 Total Billed Treatment Time: 45 Total Billed Treatment 1,FA30m,EX15m ZENY AIKEN TRADE MARKER Apr 07, 2021 13:15
[2021-04-07 20:19] VITALS: BP 96/59
[2021-04-07] MEDS: FINASTERIDE (PROSCAR) 5 MG TAB PO SCH (21:00)
[2021-04-07] MEDS: ROSUVASTATIN 20 MG (CRESTOR) TABLET PO SCH (21:01)
[2021-04-07] MEDS: amLODIPine 5 MG (NORVASC) TAB PO SCH (21:01)
--- NOTE | 2021-04-08 06:46 | Discharge Summary ---
Diagnosis/Chief Complaint Date of Admission Mar 30, 2021 at 13:30 Date of Discharge Discharge Date: Apr 08, 2021 Discharge Diagnosis Assessment: Fall from ladder Bilateral acetabular fractures Acute pulmonary embolism placed on anticoagulation History of atrial fibrillation status post ablation Fever of 102.5 upon admission to inpatient rehab unit negative except for white count of 19,000 placed on antibiotics empirically urine culture revealed UTI Abnormal complete blood count with differential will order peripheral smear and LDH Thrombocytosis Plan: Pain control Bowel regimen Supportive care 03/31/2021: Continue antibiotics Pain control 04/01/2021: Continue empiric antibiotics Supportive care 04/02/2021: Peripheral smear no pathological issue Monitor for fever 04/03/2021: Repeat labs Follow thrombocytosis 04/04/2021: Supportive care Pain control 04/05/2021: Supportive care 04/06/2021: Supportive care Pain control 04/07/2021: Continue current treatment Eliquis sent to [facility] (1) Closed left acetabular fracture Status: Acute Discharge Summary Discharge Physical Examination Allergies: Coded Allergies: morphine (Verified Adverse Reaction, Intermediate, Nausea, chest heaviness, abdominal burning, 03/22/21) Vitals & I&Os Vital Signs Date Time Temp Pulse Resp B/P (MAP) Pulse Ox O2 Delivery O2 Flow Rate FiO2 04/08/21 12:30 36.7 91 16 116/64 96 Room Air General Appearance: Alert, Oriented X3, Cooperative Respiratory: Clear to Auscultation Cardiovascular: Regular Rate Neuro: Normal Gait, Normal Speech, Strength at 5/5 X4 Ext Psych/Mental Status: Mental Status NL Hospital Course Was the Problem List Reviewed?: Yes Hospital course: Pt had uneventful ten day hospital course after he came from [place] recovering from pelvic fracture after falling off a ladder. He did experience a PE, placed on Eliquis therapeutic dose of 10 mg BID and then he was transitioned to 5 mg BID and will be maintained on that for a full three months since it was a provoked DVT and PE. Overall he did very well with rehab and was deemed stable for discharge after a near septic episode and testing results revealing a UTI with enterococcus, he finished antibiotics while hospitalized. Labs (last 24 hrs) Laboratory Tests 03/30/21 13:30: Lab Scanned Report Referred Lab Report 03/30/21 16:50: SARS-CoV-2 RNA (RT-PCR) Not Detected 03/30/21 17:40: White Blood Count 19.1H, Red Blood Count 3.56L, Hemoglobin 10.5L, Hematocrit 31L , Mean Corpuscular Volume 88, Mean Corpuscular Hemoglobin 30, Mean Corpuscular Hemoglobin Concent 34, Red Cell Distribution Width 13.5, Platelet Count 398, Mean Platelet Volume 9.1, Immature Granulocyte % (Auto) 4, Neutrophils (%) (Auto) 77H, Lymphocytes (%) (Auto) 9L, Monocytes (%) (Auto) 9, Eosinophils (%) (Auto) 1, Basophils (%) (Auto) 0, Neutrophils # (Auto) 14.8H, Lymphocytes # (Auto) 1.7, Monocytes # (Auto) 1.7H, Eosinophils # (Auto) 0.1, Basophils # (Auto) 0.1, Immature Granulocyte # (Auto) 0.8H, Neutrophils % (Manual) 80, Lymphocytes % (Manual) 9, Monocytes % (Manual) 7, Eosinophils % (Manual) 1, Atypical Lymphocytes 3, Polychromasia SLIGHT, Poikilocytosis SLIGHT, Sodium Level 131L, Potassium Level 3.9, Chloride Level 100, Carbon Dioxide Level 21, Anion Gap 10, Blood Urea Nitrogen 12, Creatinine 0.75, Estimat Glomerular Filtration Rate 104, BUN/Creatinine Ratio 16, Glucose Level 119H, Lactic Acid Level 1.47, Calcium Level 8.0L, Corrected Calcium 9.0, Total Bilirubin 1.3H, Aspartate Amino Transf (AST/SGOT) 61H, Alanine Aminotransferase (ALT/SGPT) 55, Alkaline Phosphatase 64, Total Protein 5.3L, Albumin 2.7L 03/30/21 18:10: Urine Color YELLOW, Urine Clarity CLEAR, Urine pH 8.5, Urine Specific [place] 1.010L, Urine Protein TRACEH, Urine Glucose (UA) NEGATIVE, Urine Ketones NEGATIVE, Urine Nitrite NEGATIVE, Urine Bilirubin 1+H, Urine Urobilinogen 0.2, Urine Leukocyte Esterase NEGATIVE, Urine RBC (Auto) NEGATIVE, Urine RBC NONE, Urine WBC RARE, Urine Squamous Epithelial Cells RARE, Urine Crystals NONE, Urine Bacteria FEWH, Urine Casts NONE, Urine Mucus NEGATIVE, Urine Culture Indicated YES 03/31/21 05:15: Sodium Level 134L, Potassium Level 3.7, Chloride Level 103, Carbon Dioxide Level 20L, Anion Gap 11, Blood Urea Nitrogen 12, Creatinine 0.74, Estimat Glomerular Filtration Rate 106, BUN/Creatinine Ratio 16, Glucose Level 107H, Calcium Level 8.1L, Corrected Calcium 9.3, Total Bilirubin 1.0, Aspartate Amino Transf (AST/SGOT) 48H, Alanine Aminotransferase (ALT/SGPT) 49, Alkaline Phosphatase 63, Lactate Dehydrogenase 325H, Total Protein 5.0L, Albumin 2.5L, Procalcitonin 0.23H 03/31/21 06:16: White Blood Count 13.8H, Red Blood Count 3.37L, Hemoglobin 10.1L, Hematocrit 30L , Mean Corpuscular Volume 89, Mean Corpuscular Hemoglobin 30, Mean Corpuscular Hemoglobin Concent 34, Red Cell Distribution Width 13.9, Platelet Count 485H, Mean Platelet Volume 9.2, Immature Granulocyte % (Auto) 5, Neutrophils (%) (Auto) 67, Lymphocytes (%) (Auto) 14, Monocytes (%) (Auto) 11, Eosinophils (%) (Auto) 3, Basophils (%) (Auto) 1, Neutrophils # (Auto) 9.3H, Lymphocytes # (Auto) 1.9, Monocytes # (Auto) 1.5H, Eosinophils # (Auto) 0.4H, Basophils # (Auto) 0.1, Immature Granulocyte # (Auto) 0.7H, Neutrophils % (Manual) 73, Lymphocytes % (Manual) 15, Monocytes % (Manual) 6, Eosinophils % (Manual) 3, Basophils % (Manual) 1, Myelocytes % 1, Band Neutrophils 1, Percent Immature Platelet Fraction 1.8, Polychromasia SLIGHT, Anisocytosis SLIGHT, Absolute Reticulocyte Count 145H, Percent Reticulocyte Count 4.29H 04/03/21 10:58: Sodium Level 135, Potassium Level 4.4, Chloride Level 102, Carbon Dioxide Level 22, Anion Gap 11, Blood Urea Nitrogen 15, Creatinine 0.92, Estimat Glomerular Filtration Rate 82, BUN/Creatinine Ratio 16, Glucose Level 111H, Calcium Level 8.8, White Blood Count 14.5H, Red Blood Count 3.63L, Hemoglobin 10.7L, Hematocrit 33L, Mean Corpuscular Volume 92, Mean Corpuscular Hemoglobin 30, Mean Corpuscular Hemoglobin Concent 32, Red Cell Distribution Width 14.4, Platelet Count 706H, Mean Platelet Volume 8.4L 04/04/21 05:50: Sodium Level 135, Potassium Level 4.1, Chloride Level 103, Carbon Dioxide Level 23, Anion Gap 9, Blood Urea Nitrogen 12, Creatinine 0.76, Estimat Glomerular Filtration Rate 103, BUN/Creatinine Ratio 16, Glucose Level 105, Calcium Level 8.5, Corrected Calcium 9.5, Total Bilirubin 0.7, Aspartate Amino Transf (AST/SGOT) 37H, Alanine Aminotransferase (ALT/SGPT) 55, Alkaline Phosphatase 76, Total Protein 5.7L, Albumin 2.8L, Procalcitonin 0.13H, White Blood Count 10.9, Red Blood Count 3.49L, Hemoglobin 10.4L, Hematocrit 32L, Mean Corpuscular Volume 91, Mean Corpuscular Hemoglobin 30, Mean Corpuscular Hemoglobin Concent 33, Red Cell Distribution Width 14.7H, Platelet Count 737H, Mean Platelet Volume 8.4L, Immature Granulocyte % (Auto) 3, Neutrophils (%) (Auto) 67, Lymphocytes (%) (Auto) 16, Monocytes (%) (Auto) 9, Eosinophils (%) (Auto) 4, Basophils (%) (Auto) 1, Neutrophils # (Auto) 7.3, Lymphocytes # (Auto) 1.8, Monocytes # (Auto) 0.9, Eosinophils # (Auto) 0.4H, Basophils # (Auto) 0.1, Immature Granulocyte # (Auto) 0.3H 04/06/21 05:28: White Blood Count 11.0, Red Blood Count 3.46L, Hemoglobin 10.1L, Hematocrit 32L, Mean Corpuscular Volume 93, Mean Corpuscular Hemoglobin 29, Mean Corpuscular Hemoglobin Concent 32, Red Cell Distribution Width 14.5, Platelet Count 773H, Mean Platelet Volume 8.4L, Immature Granulocyte % (Auto) 2, Neutrophils (%) (Auto) 67, Lymphocytes (%) (Auto) 18, Monocytes (%) (Auto) 9, Eosinophils (%) (Auto) 4, Basophils (%) (Auto) 1, Neutrophils # (Auto) 7.3, Lymphocytes # (Auto) 2.0, Monocytes # (Auto) 1.0, Eosinophils # (Auto) 0.4H, Basophils # (Auto) 0.1, Immature Granulocyte # (Auto) 0.2H, Sodium Level 134L, Potassium Level 4.1, Chloride Level 103, Carbon Dioxide Level 22, Anion Gap 9, Blood Urea Nitrogen 10, Creatinine 0.75, Estimat Glomerular Filtration Rate 104, BUN/Creatinine Ratio 13, Glucose Level 104, Calcium Level 8.5, Corrected Calcium 9.5, Total Bi lirubin 0.5, Aspartate Amino Transf (AST/SGOT) 31, Alanine Aminotransferase (ALT/SGPT) 40, Alkaline Phosphatase 80, Total Protein 5.7L, Albumin 2.7L Microbiology 03/30/21 Urine Culture - Final, Complete Enterococcus faecalis 03/30/21 Blood Culture - Final, Complete No growth Pending Labs Microbiology Date/Time Source Procedure Growth Status 03/30/21 18:10 Urine Clean Catch Urine Culture - Final Enterococcus faecalis Complete 03/30/21 17:40 Peripheral Lt Ac Blood Culture - Final No growth Complete Laboratory Tests 03/30/21 13:30: Lab Scanned Report Referred Lab Report 03/30/21 16:50: SARS-CoV-2 RNA (RT-PCR) Not Detected 03/30/21 17:40: White Blood Count 19.1, Red Blood Count 3.56, Hemoglobin 10.5, Hematocrit 31, Mean Corpuscular Volume 88, Mean Corpuscular Hemoglobin 30, Mean Corpuscular Hemoglobin Concent 34, Red Cell Distribution Width 13.5, Platelet Count 398, Mean Platelet Volume 9.1, Immature Granulocyte % (Auto) 4, Neutrophils (%) (Auto) 77, Lymphocytes (%) (Auto) 9, Monocytes (%) (Auto) 9, Eosinophils (%) (Auto) 1, Basophils (%) (Auto) 0, Neutrophils # (Auto) 14.8, Lymphocytes # (Auto) 1.7, Monocytes # (Auto) 1.7, Eosinophils # (Auto) 0.1, Basophils # (Auto) 0.1, Immature Granulocyte # (Auto) 0.8, Neutrophils % (Manual) 80, Lymphocytes % (Manual) 9, Monocytes % (Manual) 7, Eosinophils % (Manual) 1, Atypical Lymphocytes 3, Polychromasia SLIGHT, Poikilocytosis SLIGHT, Sodium Level 131, Potassium Level 3.9, Chloride Level 100, Carbon Dioxide Level 21, Anion Gap 10, Blood Urea Nitrogen 12, Creatinine 0.75, Estimat Glomerular Filtration Rate 104, BUN/Creatinine Ratio 16, Glucose Level 119, Lactic Acid Level 1.47, Calcium Level 8.0, Corrected Calcium 9.0, Total Bilirubin 1.3, Aspartate Amino Transf (AST/SGOT) 61, Alanine Aminotransferase (ALT/SGPT) 55, Alkaline Phosphatase 64, Total Protein 5.3, Albumin 2.7 03/30/21 18:10: Urine Color YELLOW, Urine Clarity CLEAR, Urine pH 8.5, Urine Specific [place] 1.010, Urine Protein TRACE, Urine Glucose (UA) NEGATIVE, Urine Ketones NEGATIVE, Urine Nitrite NEGATIVE, Urine Bilirubin 1+, Urine Urobilinogen 0.2, Urine Leukocyte Esterase NEGATIVE, Urine RBC (Auto) NEGATIVE, Urine RBC NONE, Urine WBC RARE, Urine Squamous Epithelial Cells RARE, Urine Crystals NONE, Urine Bacteria FEW, Urine Casts NONE, Urine Mucus NEGATIVE, Urine Culture Indicated YES 03/31/21 05:15: Sodium Level 134, Potassium Level 3.7, Chloride Level 103, Carbon Dioxide Level 20, Anion Gap 11, Blood Urea Nitrogen 12, Creatinine 0.74, Estimat Glomerular Filtration Rate 106, BUN/Creatinine Ratio 16, Glucose Level 107, Calcium Level 8.1, Corrected Calcium 9.3, Total Bilirubin 1.0, Aspartate Amino Transf (AST/SGOT) 48, Alanine Aminotransferase (ALT/SGPT) 49, Alkaline Phosphatase 63, Lactate Dehydrogenase 325, Total Protein 5.0, Albumin 2.5, Procalcitonin 0.23 03/31/21 06:16: White Blood Count 13.8, Red Blood Count 3.37, Hemoglobin 10.1, Hematocrit 30, Mean Corpuscular Volume 89, Mean Corpuscular Hemoglobin 30, Mean Corpuscular Hemoglobin Concent 34, Red Cell Distribution Width 13.9, Platelet Count 485, [place] n Platelet Volume 9.2, Immature Granulocyte % (Auto) 5, Neutrophils (%) (Auto) 67, Lymphocytes (%) (Auto) 14, Monocytes (%) (Auto) 11, Eosinophils (%) (Auto) 3, Basophils (%) (Auto) 1, Neutrophils # (Auto) 9.3, Lymphocytes # (Auto) 1.9, Monocytes # (Auto) 1.5, Eosinophils # (Auto) 0.4, Basophils # (Auto) 0.1, Immature Granulocyte # (Auto) 0.7, Neutrophils % (Manual) 73, Lymphocytes % (Manual) 15, Monocytes % (Manual) 6, Eosinophils % (Manual) 3, Basophils % (Manual) 1, Myelocytes % 1, Band Neutrophils 1, Percent Immature Platelet Fraction 1.8, Polychromasia SLIGHT, Anisocytosis SLIGHT, Absolute Reticulocyte Count 145, Percent Reticulocyte Count 4.29 04/03/21 10:58: Sodium Level 135, Potassium Level 4.4, Chloride Level 102, Carbon Dioxide Level 22, Anion Gap 11, Blood Urea Nitrogen 15, Creatinine 0.92, Estimat Glomerular Filtration Rate 82, BUN/Creatinine Ratio 16, Glucose Level 111, Calcium Level 8.8, White Blood Count 14.5, Red Blood Count 3.63, Hemoglobin 10.7, Hematocrit 33, Mean Corpuscular Volume 92, Mean Corpuscular Hemoglobin 30, Mean Corpuscular Hemoglobin Concent 32, Red Cell Distribution Width 14.4, Platelet Count 706, Mean Platelet Volume 8.4 04/04/21 05:50: Sodium Level 135, Potassium Level 4.1, Chloride Level 103, Carbon Dioxide Level 23, Anion Gap 9, Blood Urea Nitrogen 12, Creatinine 0.76, Estimat Glomerular Filtration Rate 103, BUN/Creatinine Ratio 16, Glucose Level 105, Calcium Level 8.5, Corrected Calcium 9.5, Total Bilirubin 0.7, Aspartate Amino Transf (AST/SGOT) 37, Alanine Aminotransferase (ALT/SGPT) 55, Alkaline Phosphatase 76, Total Protein 5.7, Albumin 2.8, Procalcitonin 0.13, White Blood Count 10.9, Red Blood Count 3.49, Hemoglobin 10.4, Hematocrit 32, Mean Corpuscular Volume 91, Mean Corpuscular Hemoglobin 30, Mean Corpuscular Hemoglobin Concent 33, Red Cell Distribution Width 14.7, Platelet Count 737, Mean Platelet Volume 8.4, Immature Granulocyte % (Auto) 3, Neutrophils (%) (Auto) 67, Lymphocytes (%) (Auto) 16, Monocytes (%) (Auto) 9, Eosinophils (%) (Auto) 4, Basophils (%) (Auto) 1, Neutrophils # (Auto) 7.3, Lymphocytes # (Auto) 1.8, Monocytes # (Auto) 0.9, Eosinophils # (Auto) 0.4, Basophils # (Auto) 0.1, Immature Granulocyte # (Auto) 0.3 04/06/21 05:28: White Blood Count 11.0, Red Blood Count 3.46, Hemoglobin 10.1, Hematocrit 32, Mean Corpuscular Volume 93, Mean Corpuscular Hemoglobin 29, Mean Corpuscular Hemoglobin Concent 32, Red Cell Distribution Width 14.5, Platelet Count 773, Mean Platelet Volume 8.4, Immature Granulocyte % (Auto) 2, Neutrophils (%) (Auto) 67, Lymphocytes (%) (Auto) 18, Monocytes (%) (Auto) 9, Eosinophils (%) (Auto) 4, Basophils (%) (Auto) 1, Neutrophils # (Auto) 7.3, Lymphocytes # (Auto) 2.0, Monocytes # (Auto) 1.0, Eosinophils # (Auto) 0.4, Basophils # (Auto) 0.1, Immature Granulocyte # (Auto) 0.2, Sodium Level 134, Potassium Level 4.1, Chloride Level 103, Carbon Dioxide Level 22, Anion Gap 9, Blood Urea Nitrogen 10, Creatinine 0.75, Estimat Glomerular Filtration Rate 104, BUN/Creatinine Ratio 13, Glucose Level 104, Calcium Level 8.5, Corrected Calcium 9.5, Total Bilirubin 0.5, Aspartate Amino Transf (AST/SGOT) 31, Alanine Aminotransferase (ALT/SGPT) 40, Alkaline Phosphatase 80, Total Protein 5.7, Albumin 2.7 Discharge Home Medications: Active Scripts Active Oxyir Tablet (Oxycodone HCl) 5 Mg Tab 5 Mg PO Q4H PRN Eliquis (Apixaban) 5 Mg Tablet 5 Mg PO BID Reported Rosuvastatin Calcium 20 Mg Tablet 20 Mg PO HS Amlodipine Besylate 5 Mg Tablet 5 Mg PO HS Dutasteride 0.5 Mg Capsule 0.5 Mg PO HS Aspirin EC (Aspirin) 81 Mg Tablet.dr 81 Mg PO DAILY Zyrtec (Cetirizine HCl) 10 Mg Tablet 10 Mg PO DAILY PRN Omeprazole 20 Mg Tablet.dr 20 Mg PO BID Toprol Xl (Metoprolol Succinate) 25 Mg Tab.er.24h 25 Mg PO DAILY Magnesium (Magnesium Oxide) 400 Mg Capsule 400 Mg PO BID Instructions to patient/family Please see electronic discharge instructions given to patient. Diagnosis/Problems Diagnosis/Problems (1) Closed left acetabular fracture Status: Acute KELLY,CLAUDIA ARIAS Apr 08, 2021 06:46
[2021-04-08 07:54] VITALS: BP 116/64
[2021-04-08] MEDS: VITAMIN D3 25 MCG (1,000 UNITS) TABLET PO SCH (08:15)
[2021-04-08] MEDS: LORATADINE (CLARITIN) 10 MG TAB PO SCH (08:15)
[2021-04-08] MEDS: ASPIRIN E.C. 81 MG (ECOTRIN) TAB PO SCH (08:15)
[2021-04-08] MEDS: MAGNESIUM OXIDE (MAG-OX)400 MG TAB PO SCH (08:15)
[2021-04-08] MEDS: PANTOPRAZOLE 20 MG TABLET (PROTONIX) PO SCH (08:15)
[2021-04-08] MEDS: APIXABAN 5 MG (ELIQUIS) TABLET PO SCH (08:17)
[2021-04-08] MEDS: LACTOBACILLUS ACIDOPHILUS (PROBIOTIC) CAPSULE PO SCH (08:17)
[2021-04-08] MEDS: DOCUSATE SODIUM 100 MG (COLACE) CAP PO SCH (09:00)
[2021-04-08] MEDS: SENNA W/DOCUSATE (SENOKOT S) TABLET PO SCH (09:00)
[2021-04-08] MEDS: polyethylene glycoL POWDER 17 GM (MIRALAX) PACK PO SCH (09:00)
--- NOTE | 2021-04-08 10:39 | Therapy Team Discharge Summary ---
Therapy Discharge Summary Discharge Recommendations Date of Discharge Therapy D/C Recommendations: Occupational Therapy Home Care Occupational Therapy Pt admitted to ARU s/p ORIF due to pelvic fracture. At [facility], pt was independent with ADLs and functional mobility, no AD/AE. Upon initial evaluation, pt was independent with eating, required set up assistance with oral care and upper body dressing, min A showering, max A lower body dressing and toileting and total assist footwear. OT tx focused on increasing BUE strength and activity tolerance, and increasing safety and independence with ADLs and functional mobility. At discharge, pt was independent with eating and oral care, required set up assistance with showering, upper/lower body dressing, and toileting, mod A with footwear. OT recommendations include an extended bath bench, BSC, and a hip kit. Pt to discharge from facility, d/c from OT. Decreased Activ Tolerance, Impaired Funct Balance, Impaired I ADL's PT Cardiac Technician Goals Fdc Goals PT Fdc Goals Time Frame: Apr 20, 2021 Roll Left to Right (QC): 5 Sit to Lying (QC): 4 Lying-Sitting on Side/Bed(QC): 4 Sit to Stand (QC): 4 Chair/Kva-tw-Xjxoc Xfer(QC): 4 Car Transfer (QC): 4 Does the Patient Walk: Yes Walk 10 feet (QC): 4 Walk 10ft-Uneven Surface(QC): 4 Walk 50ft with 2 Turns (QC): 4 Walk 150 ft (QC): 88 Wheel 50 feet with 2 turns (QC: 6 1 Step (curb) (QC): 4 4 Steps (QC): 88 12 Steps (QC): 88 Picking up an Object (QC): 6 OT Cardiac Technician Goals Cardiac Technician Goals Time Frame: Apr 17, 2021 Eating (QC): 6 (met) Oral Hygiene (QC): 6 (met) Shower/Bathe Self (QC): 5 (met) Upper Body Dressing (QC): 5 (met) Lower Body Dressing (QC): 5 (met) On/Off Footwear (QC): 5 (not met) Toileting Hygiene (QC): 6 (not met) Toilet/Commode Transfer (QC): 4 Additional Goals: 1-Demonstrate ADL Tasks, 2-Verbalize Understanding, 3- ImproveStrength/Nena 1=Demonstrate adherence to instructed precautions during ADL tasks. 2=Patient will verbalize/demonstrate understanding of assistive devices/modifications for ADL. 3=Patient will improve strength/tolerance for activity to enable patient to perform ADL's. GUILLAUME ALMEIDA OT Apr 08, 2021 10:39
[2021-04-08 12:30] VITALS: BP 116/64
--- NOTE | 2021-04-09 08:17 | Therapy Team Discharge Summary ---
Therapy Discharge Summary Discharge Recommendations Date of Discharge Apr 08, 2021 at 12:35 Therapy D/C Recommendations: Occupational Therapy Home Care Physical Therapy Patient came to rehab with pelvic fx s/p ORIF. Upon evaluation patient performed rolling with min assist, supine to sit with mod assist, sit to supine with min assist, sit <-> stand CGA, transfers CGA, car transfer min assist, ambulated 3' in the parallel bars with CGA, propelled a manual WC 150' with SBA, and picked up an object from the floor with CGA. Patient has been performing bed mobility and transfer training, balance and endurance training, functional strengthening, stair training, gait training, and education. Patient has made some progress but has only met his correction goals for bed mobility and transfers. Now, patient performs bed mobility and transfers with independence, car transfer CGA, ambulates 25' with a rolling walker with setup, and can propel a manual WC with independence. Patient has been discharged from this facility and will be discharged from PT at this time. Occupational Therapy Decreased Activ Tolerance, Impaired Funct Balance, Impaired I ADL's PT Underpresser Hand Goals Underpresser Hand Goals PT Residential Goals Time Frame: Apr 20, 2021 Roll Left to Right (QC): 5 Sit to Lying (QC): 4 Lying-Sitting on Side/Bed(QC): 4 Sit to Stand (QC): 4 Chair/Nsg-wa-Mawen Xfer(QC): 4 Car Transfer (QC): 4 Does the Patient Walk: Yes Walk 10 feet (QC): 4 Walk 10ft-Uneven Surface(QC): 4 Walk 50ft with 2 Turns (QC): 4 Walk 150 ft (QC): 88 Wheel 50 feet with 2 turns (QC: 6 1 Step (curb) (QC): 4 4 Steps (QC): 88 12 Steps (QC): 88 Picking up an Object (QC): 6 OT Underpresser Hand Goals Residential Goals Time Frame: Apr 17, 2021 Eating (QC): 6 (met) Oral Hygiene (QC): 6 (met) Shower/Bathe Self (QC): 5 (met) Upper Body Dressing (QC): 5 (met) Lower Body Dressing (QC): 5 (met) On/Off Footwear (QC): 5 (not met) Toileting Hygiene (QC): 6 (not met) Toilet/Commode Transfer (QC): 4 Additional Goals: 1-Demonstrate ADL Tasks, 2-Verbalize Understanding, 3- ImproveStrength/Nena 1=Demonstrate adherence to instructed precautions during ADL tasks. 2=Patient will verbalize/demonstrate understanding of assistive devices/shannan fications for ADL. 3=Patient will improve strength/tolerance for activity to enable patient to perform ADL's. SURINDER RIVERA PT Apr 09, 2021 08:17
== END 2021-04-08 12:35 | disposition home health service (06) | DRG 560 ==
PROVIDERS: ADMIT Internal Medicine; ATTEND Internal Medicine
DX: S32.402D Unspecified fracture of left acetabulum, subsequent encounter for fracture with routine healing (principal); N39.0 Urinary tract infection, site not specified; S32.401D Unspecified fracture of right acetabulum, subsequent encounter for fracture with routine healing; S32.309D Unspecified fracture of unspecified ilium, subsequent encounter for fracture with routine healing; K76.0 Fatty (change of) liver, not elsewhere classified; I48.91 Unspecified atrial fibrillation; E78.00 Pure hypercholesterolemia, unspecified; I10 Essential (primary) hypertension; K21.9 Gastro-esophageal reflux disease without esophagitis; H54.7 Unspecified visual loss; B95.2 Enterococcus as the cause of diseases classified elsewhere; R00.0 Tachycardia, unspecified; Z86.711 Personal history of pulmonary embolism; Z79.01 Long term (current) use of anticoagulants; Z79.82 Long term (current) use of aspirin; Z88.5 Allergy status to narcotic agent; Z20.822 Contact with and (suspected) exposure to COVID-19; Z79.899 Other long term (current) drug therapy; D75.839 Thrombocytosis, unspecified; W11.XXXD Fall on and from ladder, subsequent encounter
CPT/HCPCS: 36415; 71046; 80048; 80053; 81000; 83605; 83615; 84145; 85007; 85025; 85027; 85045; 85055; 87040; 87077; 87088; 87636; 94664

== ENCOUNTER 2021-05-06 13:57 | Outpatient (RCR) | payer MEDICARE, OTHER ==
[~2021-05-06 13:57] MED LIST changes: +ACET-168 PO; +ACET-2267 PO; +AMLO-250 PO; +APIX5TAB PO; +ASPI-1238 PO; +DUTA0.5C36 PO; +ERGO1250 PO; +OXC5T PO; +ROSU20TA32 PO
[2021-05-06 15:30] LABS: BASOPHILS # (AUTO) 0.1 10^3/uL (0.0-0.1); BASOPHILS % (AUTO) 1 % (0-10); EOSINOPHILS # (AUTO) 0.1 10^3/uL (0.0-0.3); EOSINOPHILS % (AUTO) 2 % (0-10); HEMATOCRIT 45 % (40-54); HEMOGLOBIN 14.3 g/dL (13.3-17.7); LYMPHOCYTES % (AUTO) 22 % (12-44); MEAN CORPUSCULAR HEMOGLOBIN 29 pg (25-34); MEAN CORPUSCULAR HGB CONC 32 g/dL (32-36); MEAN CORPUSCULAR VOLUME 92 fL (80-99); MEAN PLATELET VOLUME 9.3 fL (9.0-12.2); MONOCYTES # (AUTO) 0.9 10^3/uL (0.0-1.0); MONOCYTES % (AUTO) 9 % (0-12); NEUTROPHILS # (AUTO) 6.3 10^3/uL (1.8-7.8); NEUTROPHILS % (AUTO) 67 % (42-75); PLATELET COUNT 308 10^3/uL (130-400); WHITE BLOOD COUNT 9.4 10^3/uL (4.3-11.0)
[2021-05-06 15:50] LABS: ALBUMIN 3.7 GM/DL (3.2-4.5); BILIRUBIN,TOTAL 0.5 MG/DL (0.1-1.0); CALCIUM 9.5 MG/DL (8.5-10.1); CREATININE SERUM 0.89 MG/DL (0.60-1.30); TOTAL PROTEIN 6.8 GM/DL (6.4-8.2)
== END 2021-05-18 | disposition home or self-care (01) ==
LOC: ONC 13:57
PROVIDERS: ATTEND Internal Medicine Hematology & Oncology
DX: I26.99 Other pulmonary embolism without acute cor pulmonale (principal); D68.59 Other primary thrombophilia; I25.10 Atherosclerotic heart disease of native coronary artery without angina pectoris; E78.5 Hyperlipidemia, unspecified; E66.9 Obesity, unspecified; I48.0 Paroxysmal atrial fibrillation; S32.9XXA Fracture of unspecified parts of lumbosacral spine and pelvis, initial encounter for closed fracture; W11.XXXA Fall on and from ladder, initial encounter
CPT/HCPCS: 80053; 81241; 85025; G0463; 99214

== ENCOUNTER 2021-06-01 13:18 | Outpatient (RCR) | payer MEDICARE, OTHER | END 2021-06-15 | disposition home or self-care (01) | LOC: ONC 13:18 | PROVIDERS: ATTEND Internal Medicine Hematology & Oncology | DX: I26.99 Other pulmonary embolism without acute cor pulmonale (principal); D68.59 Other primary thrombophilia; I25.10 Atherosclerotic heart disease of native coronary artery without angina pectoris; E78.5 Hyperlipidemia, unspecified; E66.9 Obesity, unspecified; I48.0 Paroxysmal atrial fibrillation; I10 Essential (primary) hypertension; S32.9XXA Fracture of unspecified parts of lumbosacral spine and pelvis, initial encounter for closed fracture; W11.XXXA Fall on and from ladder, initial encounter | CPT/HCPCS: 99213 ==

== ENCOUNTER 2021-08-17 10:53 | Outpatient (RCR) | payer MEDICARE, OTHER ==
[~2021-08-17 10:53] MED LIST changes: +OMEP20TA56 PO; -OMEP20TA7 PO
[2021-08-17 11:03] LABS: BASOPHILS # (AUTO) 0.1 10^3/uL (0.0-0.1); BASOPHILS % (AUTO) 1 % (0-10); EOSINOPHILS # (AUTO) 0.3 10^3/uL (0.0-0.3); EOSINOPHILS % (AUTO) 4 % (0-10); HEMATOCRIT 46 % (40-54); LYMPHOCYTES # (AUTO) 2.1 10^3/uL (1.0-4.0); LYMPHOCYTES % (AUTO) 29 % (12-44); MEAN CORPUSCULAR HEMOGLOBIN 29 pg (25-34); MEAN CORPUSCULAR HGB CONC 33 g/dL (32-36); MEAN CORPUSCULAR VOLUME 89 fL (80-99); MEAN PLATELET VOLUME 9.3 fL (9.0-12.2); MONOCYTES # (AUTO) 0.8 10^3/uL (0.0-1.0); MONOCYTES % (AUTO) 12 % (0-12); NEUTROPHILS # (AUTO) 3.8 10^3/uL (1.8-7.8); NEUTROPHILS % (AUTO) 54 % (42-75); PLATELET COUNT 272 10^3/uL (130-400); WHITE BLOOD COUNT 7.1 10^3/uL (4.3-11.0)
[2021-08-17 11:25] LABS: ALBUMIN 3.9 GM/DL (3.2-4.5); BILIRUBIN,TOTAL 1.2 MG/DL (0.1-1.0); CALCIUM 9.1 MG/DL (8.5-10.1); CREATININE SERUM 0.81 MG/DL (0.60-1.30); TOTAL PROTEIN 6.7 GM/DL (6.4-8.2)
== END 2021-09-15 | disposition home or self-care (01) ==
LOC: ONC 10:53
PROVIDERS: ATTEND Internal Medicine Hematology & Oncology
DX: I26.99 Other pulmonary embolism without acute cor pulmonale (principal); D68.59 Other primary thrombophilia; I25.10 Atherosclerotic heart disease of native coronary artery without angina pectoris; E78.5 Hyperlipidemia, unspecified; E66.9 Obesity, unspecified; I48.0 Paroxysmal atrial fibrillation; I10 Essential (primary) hypertension; S32.9XXD Fracture of unspecified parts of lumbosacral spine and pelvis, subsequent encounter for fracture with routine healing; W11.XXXD Fall on and from ladder, subsequent encounter
CPT/HCPCS: 80053; 85025; G0463; 36415; 99213

== ENCOUNTER 2022-03-03 09:50 | Outpatient (RCR) | payer MEDICARE, OTHER ==
[~2022-03-03 09:50] MED LIST changes: +NF-CRES10T PO; -ROSU10TA22 PO
[2022-03-03 10:17] LABS: BASOPHILS # (AUTO) 0.1 10^3/uL (0.0-0.1); BASOPHILS % (AUTO) 1 % (0-10); EOSINOPHILS # (AUTO) 0.1 10^3/uL (0.0-0.3); EOSINOPHILS % (AUTO) 1 % (0-10); HEMATOCRIT 46 % (40-54); HEMOGLOBIN 14.7 g/dL (13.3-17.7); LYMPHOCYTES # (AUTO) 1.8 10^3/uL (1.0-4.0); LYMPHOCYTES % (AUTO) 25 % (12-44); MEAN CORPUSCULAR HEMOGLOBIN 30 pg (25-34); MEAN CORPUSCULAR HGB CONC 32 g/dL (32-36); MEAN CORPUSCULAR VOLUME 93 fL (80-99); MEAN PLATELET VOLUME 9.3 fL (9.0-12.2); MONOCYTES # (AUTO) 0.7 10^3/uL (0.0-1.0); MONOCYTES % (AUTO) 10 % (0-12); NEUTROPHILS # (AUTO) 4.4 10^3/uL (1.8-7.8); NEUTROPHILS % (AUTO) 62 % (42-75); PLATELET COUNT 283 10^3/uL (130-400)
[2022-03-03 10:29] LABS: ALBUMIN 3.8 GM/DL (3.2-4.5); BILIRUBIN,TOTAL 0.6 MG/DL (0.1-1.0); CALCIUM 9.2 MG/DL (8.5-10.1); CREATININE SERUM 0.92 MG/DL (0.60-1.30); POTASSIUM 4.1 MMOL/L (3.6-5.0); TOTAL PROTEIN 6.4 GM/DL (6.4-8.2)
== END 2022-03-17 | disposition home or self-care (01) ==
LOC: ONC 09:50
PROVIDERS: ATTEND Internal Medicine Hematology & Oncology
DX: I26.99 Other pulmonary embolism without acute cor pulmonale (principal); D68.59 Other primary thrombophilia; I25.10 Atherosclerotic heart disease of native coronary artery without angina pectoris; E78.5 Hyperlipidemia, unspecified; E66.9 Obesity, unspecified; I48.0 Paroxysmal atrial fibrillation; I10 Essential (primary) hypertension; S32.9XXD Fracture of unspecified parts of lumbosacral spine and pelvis, subsequent encounter for fracture with routine healing; W11.XXXD Fall on and from ladder, subsequent encounter; Z96.652 Presence of left artificial knee joint; Z90.49 Acquired absence of other specified parts of digestive tract
CPT/HCPCS: 80053; 85025; G0463; 36415; 99213

== ENCOUNTER → 2022-09-15 | Outpatient (CLI) | payer MEDICARE, OTHER ==
--- NOTE | 2022-09-15 17:36 | Diagnostic Imaging Report ---
INDICATION: Right shoulder pain AP and transscapular views of the right shoulder were obtained. No fracture or acute bony abnormality seen. There are marked degenerative changes of the glenohumeral joint and AC joint. There is minimal distance between the acromion and humeral head compatible with rotator cuff pathology. There are possible loose bodies in the joint space. IMPRESSION: Advanced degenerative changes of the right shoulder with findings compatible with chronic rotator cuff pathology and possible loose bodies in the joint space. Dictated by: Dictated on workstation # [id number]
== END ==
LOC: RAD 14:07
PROVIDERS: ATTEND Physician Assistant
DX: M19.011 Primary osteoarthritis, right shoulder (principal); R22.31 Localized swelling, mass and lump, right upper limb
CPT/HCPCS: 73030

== ENCOUNTER → 2022-12-17 | Outpatient (CLI) | payer MEDICARE, OTHER ==
[~2022-12-17] MED LIST changes: +CATHETER FLUSH 10 ML SYR IV PRN; +HOLD METFORMIN - RECEIVED CONTRAST 20 ML VIAL IV SCH; +IOHEXOL 350 MG/ML 100 ML (OMNIPAQUE 350) VIAL IV ONE; +NS 100 ML (IVPB) BAG IV ONE; -ROSU20TA32 PO; +ROSU20TA73 PO
--- NOTE | 2022-12-17 13:12 | Diagnostic Imaging Report ---
CT CHEST W TECHNIQUE: Multiple contiguous axial images were obtained through the chest with the use of intravenous contrast. All CT scans use one or more of the following dose optimizing techniques: automated exposure control, MA and/or KvP adjustment based on a patient size and exam type, or iterative reconstruction. INDICATION: Chest pain. Pulmonary asbestosis. COMPARISON: 01/27/2021 FINDINGS: Lungs and airway: No abnormality in the trachea. There is no pneumonia or edema. Rounded consolidation in the left lower lobe adjacent to calcified pleural plaque stable and most compatible with atelectasis. No suspicious pulmonary nodules have developed. Pleura: Bilateral calcified pleural plaques are unchanged and greatest along the hemidiaphragms. 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 No pleural effusion or soft tissue pleural nodules that would suggest mesothelioma. Heart and mediastinum: Thyroid is normal. No supraclavicular or axillary lymphadenopathy. No mediastinal or hilar adenopathy. Heart is normal in size. Normal caliber thoracic aorta. Upper abdomen: No concerning abnormality in the upper abdomen. Musculoskeletal: No suspicious osseous lesion. IMPRESSION: 1. Stable exam since 2020 with calcified pleural plaques and rounded atelectasis in the left lower lobe. 2. No suspicious pulmonary nodules. 3. No soft tissue pleural mass to suggest mesothelioma. Dictated by: Dictated on workstation # [id number]
== END ==
LOC: RAD 10:15
PROVIDERS: ATTEND Family Medicine
DX: J98.11 Atelectasis (principal); J61 Pneumoconiosis due to asbestos and other mineral fibers; R91.1 Solitary pulmonary nodule
CPT/HCPCS: 71260

== ENCOUNTER 2023-02-11 10:41 | Outpatient (RCR) | payer MEDICARE, OTHER ==
[~2023-02-11 10:41] MED LIST changes: -CATHETER FLUSH 10 ML SYR IV PRN; -HOLD METFORMIN - RECEIVED CONTRAST 20 ML VIAL IV SCH; -IOHEXOL 350 MG/ML 100 ML (OMNIPAQUE 350) VIAL IV ONE; -NS 100 ML (IVPB) BAG IV ONE
== END 2023-02-15 | disposition home or self-care (01) ==
LOC: ONC 10:41
PROVIDERS: ATTEND Internal Medicine Hematology & Oncology
DX: Z53.9 Procedure and treatment not carried out, unspecified reason (principal)

== ENCOUNTER 2023-03-16 14:41 | Outpatient (RCR) | payer MEDICARE, OTHER ==
[2023-03-16 15:10] LABS: BASOPHILS # (AUTO) 0.1 10^3/uL (0.0-0.1); BASOPHILS % (AUTO) 1 % (0-10); EOSINOPHILS # (AUTO) 0.5 10^3/uL (0.0-0.3); EOSINOPHILS % (AUTO) 4 % (0-10); HEMATOCRIT 44 % (40-54); LYMPHOCYTES # (AUTO) 1.9 10^3/uL (1.0-4.0); LYMPHOCYTES % (AUTO) 14 % (12-44); MEAN CORPUSCULAR HEMOGLOBIN 30 pg (25-34); MEAN CORPUSCULAR HGB CONC 32 g/dL (32-36); MEAN CORPUSCULAR VOLUME 95 fL (80-99); MEAN PLATELET VOLUME 8.9 fL (9.0-12.2); MONOCYTES # (AUTO) 1.2 10^3/uL (0.0-1.0); MONOCYTES % (AUTO) 9 % (0-12); NEUTROPHILS # (AUTO) 9.3 10^3/uL (1.8-7.8); NEUTROPHILS % (AUTO) 71 % (42-75); PLATELET COUNT 390 10^3/uL (130-400); WHITE BLOOD COUNT 13.2 10^3/uL (4.3-11.0)
[2023-03-16 15:32] LABS: ALBUMIN 3.7 GM/DL (3.2-4.5); BILIRUBIN,TOTAL 0.9 MG/DL (0.1-1.0); CALCIUM 9.7 MG/DL (8.5-10.1); CREATININE SERUM 1.08 MG/DL (0.60-1.30); POTASSIUM 4.1 MMOL/L (3.6-5.0)
== END 2023-03-17 ==
LOC: ONC 14:41
PROVIDERS: ATTEND Internal Medicine Hematology & Oncology
DX: I26.99 Other pulmonary embolism without acute cor pulmonale (principal); D68.59 Other primary thrombophilia; Z96.642 Presence of left artificial hip joint; I10 Essential (primary) hypertension; E78.5 Hyperlipidemia, unspecified; E66.9 Obesity, unspecified; I25.10 Atherosclerotic heart disease of native coronary artery without angina pectoris
CPT/HCPCS: 80053; 85025; G0463; 99214